=== PATIENT | male | born 1945 | race Caucasian/White ===

== ENCOUNTER 2023-12-30 12:07 | Outpatient (OUT) | payer OTHER, SELFPAY ==
[2023-12-30 12:40] LABS: Basophils Absolute Auto 0.1 10^3/uL (0.0-0.1); Basophils Percent Auto 1.1 % (0.2-2.0); Eosinophils Absolute Auto 0.3 10^3/uL (0.0-0.7); Eosinophils Percent Auto 4.4 % (0.9-7.0); Hematocrit 41.9 % (42.0-54.0); Hemoglobin 13.8 g/dL (14.0-18.0); Immature Granulocytes Abs Auto 0.03 10^3/uL (0.00-0.03); Immature Granulocytes Pct Auto 0.5 % (0.0-0.5); Lymphocytes Absolute Auto 1.3 10^3/uL (1.2-3.8); Mean Corpuscular HGB Conc 32.9 g/dL (29.9-35.2); Mean Corpuscular Hemoglobin 32.2 pg (25.9-34.0); Mean Corpuscular Volume 97.7 fL (80.0-94.0); Mean Platelet Volume 10.8 fL (9.5-13.5); Monocytes Absolute Auto 0.8 10^3/uL (0.3-0.8); Monocytes Percent Auto 12.2 % (1.7-12.0); Neutrophils Percent Auto 61.8 % (43.0-75.0); Platelet Count 150 10^3/uL (150-450); Red Blood Count 4.29 10^6/uL (4.70-6.10); Red Cell Distribution Width 13.1 % (11.0-15.0); White Blood Count 6.4 10^3/uL (4.0-11.0)
[2023-12-30 13:05] LABS: Alanine Aminotransferase 29 U/L (16-63); Albumin Globulin Ratio 1.3; Albumin Level 4.1 g/dL (3.4-5.0); Alkaline Phosphatase 79 U/L (46-116); Anion Gap 12.1; Aspartate Amino Transferase 23 U/L (15-37); BUN Creatinine Ratio 18.6; Bilirubin Total 0.7 mg/dL (0.2-1.0); Calcium 9.8 mg/dL (8.5-10.1); Carbon Dioxide 30.2 mmol/L (21.0-32.0); Chloride 106 mmol/L (98-107); Cholesterol 137 mg/dL (<=200); Estimated GFR (African America >60 (>=60); Estimated GFR (Non-African Ame >60 (>=60); Globulin 3.1 g/dL; Glucose 93 mg/dL (74-106); HDL Cholesterol 46 mg/dL (40-60); LDL Cholesterol Calculated 63.8 mg/dL; Potassium 4.3 mmol/L (3.5-5.1); Sodium 144 mmol/L (136-145); Total Protein 7.2 g/dL (6.4-8.2); Triglycerides 136 mg/dL (<=150); VLDL CHOLESTEROL 27.2 mg/dL
[2023-12-30 13:52] LABS: Prostate Specific Antigen Scrn 0.55 ng/mL (<=4.00)
== END 2023-12-30 12:08 | disposition home or self-care (01) ==
LOC: LAB 12:09
PROVIDERS: PCP Internal Medicine; Visit Provider Internal Medicine
DX: R00.1 Bradycardia, unspecified (principal); R53.83 Other fatigue; E78.00 Pure hypercholesterolemia, unspecified; I25.10 Atherosclerotic heart disease of native coronary artery without angina pectoris; I10 Essential (primary) hypertension; Z12.5 Encounter for screening for malignant neoplasm of prostate
CPT/HCPCS: 36415; 80053; 80061; 84443; 85025; G0103

== ENCOUNTER 2024-03-16 14:52 | Emergency (ER) | payer OTHER, SELFPAY ==
[2024-03-16] VITALS (45 sets, daily range): BP systolic 134–173; BP diastolic 53–108; PULSE 39–83; TEMP 36.7; O2SAT 93–99; BMI 22.3
--- NOTE | 2024-03-16 15:06 | XR_ITS ---
The [address] [address] Patient Name: BHAVANA VIERA MRN: [id number] date: 1945 Sex: M Assigned Patient Location: ER Current Patient Location: ER Accession/Order Number: [id number] Exam Date: 03/16/2024 15:20 Report Date: 03/16/2024 15:37 At the request of: DANIELLA WILSON Procedure: XR chest 1V EXAMINATION: XR chest 1V HISTORY: Bradycardia COMPARISON: No relevant comparison available. TECHNIQUE: AP portable FINDINGS: LUNGS: No significant pulmonary parenchymal abnormalities. VASCULATURE: No increased pulmonary vasculature. PLEURA: No pneumothorax, effusion, or pleural thickening. CARDIAC: No cardiomegaly or cardiac silhouette abnormality. MEDIASTINUM: No visible mass or adenopathy. Median sternotomy wires BONES: No fracture or visible bone lesion. OTHER: Negative. XR/XR chest 1V IMPRESSION: No acute cardiopulmonary process Electronically authenticated by: VIRGILIO MATOS Date: 03/16/2024 15:37
--- NOTE | 2024-03-16 15:06 | ECG_ITS ---
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
--- NOTE | 2024-03-16 15:10 | ED.GENADUL1 ---
HPI HPI - General Adult General Chief complaint: Chest Pain Stated complaint: ABNORMAL CARDIAC VALUE Time Seen by Provider: 03/16/24 14:58 Source: patient Mode of arrival: walk-in Limitations: no limitations History of Present Illness HPI narrative: Patient is an 78-year-old male with a history of cardiac valve replacement who presents to the emergency department with Holter monitor in place because he was alerted to abnormal cardiac rhythm in the last day. He states he has a Holter monitor in place for bradycardia as his heart rate has been dipping into the 30s. He is totally asymptomatic with the bradycardia. He takes an aspirin daily but no other blood thinners. He has had no syncope, dizziness. 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 There is talk of him receiving a pacemaker possibly. Related Data Home Medications ?Medication ?Instructions ?Recorded ?Confirmed alprazolam 0.25 mg tablet mg 03/16/24 aspirin 81 mg capsule 81 mg PO DAILY 03/16/24 03/16/24 carvedilol 3.125 mg tablet mg 03/16/24 furosemide 20 mg tablet mg 03/16/24 lisinopril 40 mg tablet mg 03/16/24 nifedipine 30 mg tablet,extended mg PO 03/16/24 release 24 hr pravastatin 40 mg tablet mg 03/16/24 Allergies Allergy/AdvReac Type Severity Reaction Status Date / Time No Known Drug Allergies Allergy Verified 03/16/24 14:59 Opioid HPI Opioid Management Most Recent Opioid Data: Last Pain Scale 0 03/16/24 15:22 Review of Systems ROS Constitutional Denies: fever or chills Ears, nose, mouth, and throat Denies: throat pain or nasal congestion Cardiovascular Denies: chest pain Respiratory Denies: shortness of breath Gastrointestinal Denies: nausea or vomiting Musculoskeletal Denies: back pain or neck pain Integumentary/Breast Denies: rash Neurological Denies: headache Hematologic/Lymphatic Denies: easy bruising or easy bleeding Exam Narrative Exam Narrative: Gen.: Awake, alert, in no distress Head: Normocephalic, atraumatic ENT: Moist mucous membranes Respiratory: No respiratory distress, lungs clear bilaterally Cardio: Regular rate and rhythm Gastrointestinal: Abdomen is soft, nondistended and nontender to palpation Extremities: Moves extremities equally, no pedal edema Psych: Normal mood and affect Neuro: No focal neuro deficit Skin: Warm, dry, intact Constitutional Vital Signs, click to edit/add: Last Vital Signs Temp 98.0 F 03/16/24 14:59 Pulse 70 03/16/24 14:59 Resp 14 03/16/24 14:59 BP 173/64 H 03/16/24 14:59 Pulse Ox 96 03/16/24 14:59 O2 Del Method Room Air 03/16/24 14:59 Course Vital Signs Vital signs: Vital Signs Temperature 98.0 F 03/16/24 14:59 Pulse Rate 70 03/16/24 14:59 Respiratory Rate 14 03/16/24 14:59 Blood Pressure 173/64 H 03/16/24 14:59 Pulse Oximetry 96 03/16/24 14:59 Oxygen Delivery Method Room Air 03/16/24 14:59 Temperature 98.0 F 03/16/24 14:59 Pulse Rate 70 03/16/24 14:59 Respiratory Rate 14 03/16/24 14:59 Blood Pressure 173/64 H 03/16/24 14:59 Pulse Oximetry 96 03/16/24 14:59 Oxygen Delivery Method Room Air 03/16/24 14:59 Medical Decision Making MDM Narrative Medical decision making narrative: Patient is asymptomatic in the emergency department. Heart rate is in the 40s. Blood pressure is stable. Lab studies are unremarkable including cardiac enzymes. Discussed the case with Dr. Lamb for cardiology and he states he will take care of her transfer to [facility]. Patient made aware and is in agreement with treatment plan. SUPERVISED APC VISIT, PHYSICIAN ATTESTATION: Based on the medical record the care appears appropriate. ? Critical care time 35 minutes. Medical Records Medical records reviewed: Yes I reviewed the patient's medical records Lab Data Lab results reviewed: Yes I reviewed the patient's lab results Labs: Lab Results 03/16/24 Range/Units 15:06 WBC 7.9 (4.0-11.0) 10^3/uL RBC 4.12 L (4.70-6.10) 10^6/uL Hgb 13.5 L (14.0-18.0) g/dL Hct 39.7 L (42.0-54.0) % MCV 96.4 H (80.0-94.0) fL MCH 32.8 (25.9-34.0) pg MCHC 34.0 (29.9-35.2) g/dL RDW 12.4 (11.0-15.0) % Plt Count 163 (150-450) 10^3/uL MPV 11.0 (9.5-13.5) fL Neut % (Auto) 67.8 (43.0-75.0) % Lymph % (Auto) 20.8 (20.5-60.0) % [place] % (Auto) 8.0 (1.7-12.0) % Eos % (Auto) 2.2 (0.9-7.0) % Baso % (Auto) 0.8 (0.2-2.0) % Neut # (Auto) 5.3 (1.4-6.5) 10^3/uL Lymph # (Auto) 1.6 (1.2-3.8) 10^3/uL [place] # (Auto) 0.6 (0.3-0.8) 10^3/uL Eos # (Auto) 0.2 (0.0-0.7) 10^3/uL Baso # (Auto) 0.1 (0.0-0.1) 10^3/uL Abs Immat Gran (auto) 0.03 (0.00-0.03) 10^3/uL Imm/Tot Granulo (auto) 0.4 (0.0-0.5) % PT 10.5 (9.0-11.6) sec INR 0.99 Sodium 142 (136-145) mmol/L Potassium 3.9 (3.5-5.1) mmol/L Chloride 106 (98-107) mmol/L Carbon Dioxide 27.0 (21.0-32.0) mmol/L Anion Gap 12.9 BUN 22.0 H (7.0-18.0) mg/dL Creatinine 1.19 (0.70-1.30) mg/dL Est GFR ( Amer) >60 (>=60) Est GFR (Non-Af Amer) 59 L (>=60) BUN/Creatinine Ratio 18.5 Glucose 140 H (74-106) mg/dL Calcium 9.1 (8.5-10.1) mg/dL Total Bilirubin 0.6 (0.2-1.0) mg/dL AST 20 (15-37) U/L ALT 21 (16-63) U/L Alkaline Phosphatase 76 (46-116) U/L Troponin I High Sens 12.2 (4.0-76.1) pg/mL NT-Pro-B Natriuret Pep 346.0 (<=1800.0) pg/mL Total Protein 6.9 (6.4-8.2) g/dL Albumin 4.0 (3.4-5.0) g/dL Globulin 2.9 g/dL Albumin/Globulin Ratio 1.4 Imaging Data Chest x-ray: Attestation: I have reviewed the pertinent imaging results. Radiologist's impression: ITS Impressions Chest X-Ray 03/16/24 15:06 IMPRESSION: No acute cardiopulmonary process Electronically authenticated by: VIRGILIO MATOS Date: 03/16/2024 15:37 ECG Data Attestation: I personally reviewed and interpreted this ECG as follows: (Normal sinus rhythm at a rate of 68, incomplete right bundle branch block, no acute ST elevation or ectopy. EKG reviewed by attending physician) Critical Care Time Critical Care Time Critical Care Time: Yes Total Critical Care Time: 35 Attestation: 35 minutes of critical care time for cardiac dysrhythmia and transfer to tertiary care. Discharge Plan Discharge Chief Complaint: Chest Pain Clinical Impression: Bradycardia Patient Disposition: [facility] Time of Disposition Decision: 16:07 Discharge Location: [facility] Med Condition: Good Mode of Transportation: EMS Prescriptions / Home Meds: No Action nifedipine 30 mg tablet extended release 24hr PO pravastatin 40 mg tablet alprazolam 0.25 mg tablet furosemide 20 mg tablet lisinopril 40 mg tablet aspirin 81 mg capsule 81 mg PO DAILY carvedilol 3.125 mg tablet Print Language: Ukrainian Referrals: Grzegorz Bui DO [Primary Care Provider] - 1 week
[2024-03-16 15:15] LABS: Basophils Absolute Auto 0.1 10^3/uL (0.0-0.1); Basophils Percent Auto 0.8 % (0.2-2.0); Eosinophils Absolute Auto 0.2 10^3/uL (0.0-0.7); Eosinophils Percent Auto 2.2 % (0.9-7.0); Hematocrit 39.7 % (42.0-54.0); Hemoglobin 13.5 g/dL (14.0-18.0); Immature Granulocytes Abs Auto 0.03 10^3/uL (0.00-0.03); Immature Granulocytes Pct Auto 0.4 % (0.0-0.5); Lymphocytes Absolute Auto 1.6 10^3/uL (1.2-3.8); Lymphocytes Percent Auto 20.8 % (20.5-60.0); Mean Corpuscular Hemoglobin 32.8 pg (25.9-34.0); Mean Corpuscular Volume 96.4 fL (80.0-94.0); Monocytes Absolute Auto 0.6 10^3/uL (0.3-0.8); Neutrophils Absolute Auto 5.3 10^3/uL (1.4-6.5); Neutrophils Percent Auto 67.8 % (43.0-75.0); Platelet Count 163 10^3/uL (150-450); Red Blood Count 4.12 10^6/uL (4.70-6.10); Red Cell Distribution Width 12.4 % (11.0-15.0); White Blood Count 7.9 10^3/uL (4.0-11.0)
[2024-03-16 15:27] LABS: INR 0.99; Prothrombin Time 10.5 sec (9.0-11.6)
[2024-03-16 15:40] LABS: Alanine Aminotransferase 21 U/L (16-63); Albumin Globulin Ratio 1.4; Alkaline Phosphatase 76 U/L (46-116); Anion Gap 12.9; Aspartate Amino Transferase 20 U/L (15-37); BUN Creatinine Ratio 18.5; Bilirubin Total 0.6 mg/dL (0.2-1.0); Calcium 9.1 mg/dL (8.5-10.1); Chloride 106 mmol/L (98-107); Estimated GFR (African America >60 (>=60); Estimated GFR (Non-African Ame 59 (>=60); Globulin 2.9 g/dL; Glucose 140 mg/dL (74-106); Potassium 3.9 mmol/L (3.5-5.1); Sodium 142 mmol/L (136-145); Total Protein 6.9 g/dL (6.4-8.2); Troponin I High Sensitivity 12.2 pg/mL (4.0-76.1)
== END 2024-03-16 21:40 | disposition short-term general hospital (02) ==
PROVIDERS: Physician Assistant; Emergency Provider Emergency Medicine; PCP Internal Medicine
DX: R00.1 Bradycardia, unspecified (principal); Z79.82 Long term (current) use of aspirin; Z95.2 Presence of prosthetic heart valve
CPT/HCPCS: 36415; 71045; 80053; 83880; 84484; 85025; 85610; 93005; 99291

== ENCOUNTER 2024-04-26 08:25 | Outpatient (OUT) | payer OTHER, SELFPAY ==
--- OUTSIDE RECORDS SUMMARY | 2024-04-26 08:31 | XMS_ITS | CCD ---
Author Organization [facility] Care Team Providers Care Health Lead Name Role Phone Grzegorz Bui Unavailable HAO, DR ZUNIGA Consulting Unavailable BALL, DR ZUNIGA Attending Unavailable BALL, DR ZUNIGA Admitting Unavailable BALL, DR ZUNIGA Primary Care Unavailable BALL, DR ZUNIGA Attending Unavailable BALL, DR ZUNIGA Admitting Unavailable BALL, DR ZUNIGA Primary Care Unavailable BALL, DR ZUNIGA Consulting Unavailable ELTAHAWY, DR ESPINAL Consulting Unavailable BALL, DR ZUNIGA Primary Care Unavailable ELTAHAWY, DR ESPINAL Attending Unavailable ELTAHAWY, DR ESPINAL Admitting Unavailable GARY ., JAMA Consulting Unavailable GARY ., JAMA Attending Unavailable GARY ., JAMA Admitting Unavailable BALL, DR ZUNIGA Primary Care Unavailable BALL, DR ZUNIGA Attending Unavailable BALL, DR ZUNIGA Admitting Unavailable BALL, DR ZUNIGA Primary Care Unavailable BALL, DR ZUNIGA Consulting Unavailable BALL, DR ZUNIGA Attending Unavailable BALL, DR ZUNIGA Admitting Unavailable BALL, DR ZUNIGA Primary Care Unavailable BALL, DR ZUNIGA Consulting Unavailable DOWNS, TRICIA Referring Unavailable JONA, INDIO Attending Unavailable JONA, INIDO Attending Unavailable HORANI, DON Admitting Unavailable HORANI, DON Attending Unavailable DIAB, ROLANDO Referring Unavailable HORANI, DON Referring Unavailable PIRKL, OMID Referring Unavailable DOWNS, TRICIA Referring Unavailable Allergies Allergy Classification Reported Allergen(s) Allergy Type Date of Onset Reaction(s) Facility (1 source) Adhesive agent Drug allergy (disorder) 4 [facility] Repository (1 source) patient allergy list reviewed by nurse or physicia Propensity to adverse reactions 7 Comment:Done Biopharmacopae Other Medications Current Medications Medication Drug Class(es) Dates Sig (Normalized) Sig (Original) ALPRAZolam 0.25 mg oral tablet (10 sources) Benzodiazepine Start: 12-28-2023 take 0.25 mg by mouth every eight hours Alprazolam Active 0.25 MG PO Every 8 hours December 28, 2023 12:00am Start: 04-04-2023 take 1 tablet by hellen th every eight hours as needed for anxiety ALPRAZolam 0.25 MG 1 tablet Orally every 8 hours as needed for anxiety Mar, Active take 1 tablet by hellen th every twelve hours ALPRAZolam 0.25 MG 1 tablet Orally Twice a day Active aspirin 81 mg delayed release oral tablet (10 sources) Platelet Aggregation Inhibitor, Nonsteroidal Anti-inflammatory Drug Start: 12-28-2023 Aspirin (Adult Lo w Dose Aspirin) 81 mg tablet,delayed release (DR/EC) Active 81 MG PO Daily December 28, 2023 12:00am take 1 tablet by hellen th every twenty-four hours Aspirin Adult Low Dose 81 MG 1 tablet Orally Once a day Active atorvastatin 40 mg oral tablet (1 source) HMG-CoA Reductase Inhibitor Start: 03-21-2024 take 40 mg by mouth once daily Atorvastatin Active 40 MG PO Daily March 21, 2024 12:00am clopidogrel 75 mg oral tablet (1 source) P2Y12 Platelet Inhibitor Start: 03-21-2024 take 1 tablet by mouth once daily Clopidogrel (Plavix) 75 mg tablet Active 75 MG PO Daily March 21, 2024 12:00am furosemide 20 mg oral tablet (2 sources) Loop Diuretic Start: 12-28-2023 take 20 mg by mouth once daily Furosemide Active 20 MG PO Daily December 28, 2023 12:00am lisinopril 40 mg oral tablet (1 source) Angiotensin Converting Enzyme Inhibitor Start: 03-30-2024 take 40 mg by mouth once daily Lisinopril Active 40 MG PO Daily March 30, 2024 12:00am mupirocin 0.02 mg/mg topical ointment (5 sources) RNA Synthetase Inhibitor Antibacterial Mupirocin 2 % 1 application Externally Twice a day Active NIFEdipine 30 mg osmotic 24 hr extended release oral tablet (2 sources) Dihydropyridine Calcium Channel Rosibel Start: 12-28-2023 take 30 mg by mouth once daily Nifedipine Active 30 MG PO Daily December 28, 2023 12:00am nitroglycerin 0.4 mg sublingual tablet (10 sources) Nitrate Vasodilator Start: 12-28-2023 Nitroglycerin Active 0.4 MG SUBLINGUAL every 5 to 15 minutes December 28, 2023 12:00am Nitroglycerin 0. 4 MG as directed Sublingual Active Completed/Discontinued Medications Medication Drug Class(es) Dates Sig (Normalized) Sig (Original) carvedilol 3.125 mg oral tablet (11 sources) alpha-Adrenergic Rosibel, beta-Adrenergic Rosibel Start: 02-27-2024 End: 03-21-2024 take 3.125 mg by mouth twice daily Carvedilol Discontinued 3.125 MG PO Twice daily 60 30 February 27, 2024 5:09pm March 21, 2024 3:59pm Start: 12-28-2023 End: 02-27-2024 take 6.25 mg by mouth twice daily Carvedilol Discontinued 6.25 MG PO Twice daily December 28, 2023 12:00am February 27, 2024 5:09pm take 1 tablet by hellen th every twelve hours Carvedilol 6.25 MG 1 tablet with food Orally Twice a day Active pravastatin sodium 40 mg oral tablet (2 sources) HMG-CoA Reductase Inhibitor Start: 12-28-2023 End: 03-21-2024 take 40 mg by mouth once daily Pravastatin Discontinued 40 MG PO Daily December 28, 2023 12:00am March 21, 2024 4:00pm Problems Active Problems Problem Classification Problem Date Documented Date Episodic/Chronic Allergic reactions (1 source) Inflammatory dermatosis; Translations: [Dermatitis, unspecified] Episodic Anxiety disorders (17 sources) Generalized anxiety disorder; Translations: [Generalized anxiety disorder] Chronic Cardiac dysrhythmias (14 sources) Nonsustained ventricular tachycardia ; Translations: [NSVT (nonsustained ventricular tachycardia)] Onset: 03-16-2024 12-28-2023 Chronic Cardiac dysrhythmias (10 sources) Bradycardia, unspecified; Translations: [Bradycardia] Onset: 03-27-2024 Episodic Coagulation and hemorrhagic disorders (1 source) Thrombocytopenic disorder; Translations: [Thrombocytopenia, unspecified] Onset: 03-06-2017 Chronic Complication of device; implant or graft (2 sources) Atherosclerosis of coronary artery bypass graft(s) without angina pectoris; Translations: [Atherosclerosis of coronary artery bypass graft(s) without angina pectoris] Onset: 03-27-2024 Chronic Complications of surgical procedures or medical care (5 sources) Postprocedural hemorrhage of skin and subcutaneous tissue following a dermatologic procedure; Translations: [Infection following a procedure, other surgical site, initial encounter] Onset: 05-28-2022 Episodic Congestive heart failure; nonhypertensive (2 sources) Chronic diastolic (congestive) heart failure; Translations: [Chronic diastolic (congestive) heart failure] Onset: 03-17-2024 Chronic Coronary atherosclerosis and other heart disease (20 sources) Coronary arteriosclerosis; Translations: [Atherosclerotic heart disease of [place] coronary artery without angina pectoris] Onset: 10-17-2013 Chronic Deficiency and other anemia (2 sources) Anemia; Translations: [Anemia, unspecified] 12-30-2023 Episodic Disorders of lipid metabolism (20 sources) Hypercholesterolemia; Translations: [Pure hypercholesterolemia, unspecified] Onset: 10-17-2013 Chronic Esophageal disorders (2 sources) Esophageal reflux finding; Translations: [Esophageal reflux] Onset: 10-17-2013 Chronic Essential hypertension (20 sources) Essential hypertension; Translations: [Essential (primary) hypertension] Onset: 04-20-2022 Chronic Heart valve disorders (16 sources) Non-rheumatic mitral regurgitation ; Translations: [Nonrheumatic mitral (valve) insufficiency] Onset: 03-17-2024 Chronic Hyperplasia of prostate (3 sources) Lower urinary tract symptoms due to benign prostatic hypertrophy; Translations: [Benign prostatic hyperplasia with lower urinary tract symptoms] Onset: 10-17-2013 Chronic Hypertension with complications and secondary hypertension (2 sources) Hypertensive heart disease with heart failure; Translations: [Hypertensive heart disease with heart failure] Onset: 04-06-2024 Chronic Immunizations and screening for infectious disease (1 source) Vaccination given; Translations: [Encounter for immunization] Episodic Osteoarthritis (1 source) Osteoarthritis; Translations: [Polyosteoarthritis, unspecified] Onset: 11-21-2015 Chronic Other aftercare (4 sources) Other shelter (current) drug therapy; Translations: [OTH FOOTWEAR SALES COORDINATOR CURRENT DRUG THERAPY] Onset: 05-31-2022 Episodic Other aftercare (1 source) Long-term current use of drug therapy; Translations: [Other keysmith (current) drug therapy] Episodic Other injuries and conditions due to external causes (1 source) History of fall; Translations: [History of falling] Episodic Other non-epithelial cancer of skin (2 sources) Personal history of other malignant neoplasm of skin; Translations: [Basal cell carcinoma of scalp] Onset: 09-26-2022 Episodic Other screening for suspected conditions (not mental disorders or infectious disease) (9 sources) Encounter for screening for malignant neoplasm of prostate; Translations: [Abnormal result of other cardiovascular function study] Onset: 12-23-2021 Episodic Elinor-; endo-; and myocarditis; cardiomyopathy (except that caused by tuberculosis or sexually transmitted disease) (2 sources) Cardiomyopathy in diseases classified elsewhere; Translations: [Cardiomyopathy in diseases classified elsewhere] Onset: 04-06-2024 Chronic Residual codes; unclassified (1 source) Requires influenza virus vaccination; Translations: [Need for prophylactic vaccination and inoculation, Influenza] Episodic Spondylosis; intervertebral disc disorders; other back problems (16 sources) Lumbar spondylosis; Translations: [Spondylosis without myelopathy or radiculopathy, lumbar region] Chronic Unclassified (2 sources) Other ventricular tachycardia; Translations: [Other ventricular tachycardia] Onset: 03-17-2024 Unclassified (1 source) Long-term current use of drug therapy; Translations: [Long-term (current) use of other medications] Onset: 11-23-2016 Past or Other Problems Problem Classification Problem Date Documented Date Episodic/Chronic Deficiency and other anemia (4 sources) Anemia, unspecified; Translations: [ANEMIA UNSPECIFIED] Onset: 2 Episodic Esophageal disorders (8 sources) Esophageal disorders; Translations: [Gastroesophageal reflux disease with esophagitis without hemorrhage] Nonspecific chest pain (1 source) Chest pain; Translations: [Chest pain, unspecified] Onset: 6 Episodic Other aftercare (1 source) snf (current) use of aspirin; Translations: [FOOTWEAR SALES COORDINATOR CURRENT USE OF ASPIRIN] Onset: 2 Episodic Other upper respiratory infections (1 source) Acute maxillary sinusitis; Translations: [Acute recurrent maxillary sinusitis] Onset: 9 Episodic Screening and history of mental health and substance abuse codes (1 source) History of tobacco use; Translations: [Personal history of tobacco use, presenting hazards to health] Onset: 7 Episodic Sprains and strains (1 source) Sprain, metatarsophalangeal joint; Translations: [Sprain and strain of metatarsophalangeal (joint)] Onset: 4 Episodic Superficial injury; contusion (1 source) Contusion of hand; Translations: [Contusion of hand(s)] Onset: 4 Episodic Unclassified (4 sources) NSVT (nonsustained ventricular tachycardia) I47.29 Unclassified (1 source) Other ventricular tachycardia; Translations: [Other ventricular tachycardia] Onset: 4 Viral infection (1 source) Herpes zoster without complication; Translations: [Zoster without complications] Onset: 8 Resolved: 1 Episodic Results Test Name Value Interpretation Reference Range Facility 37on 04-06-2024 37 Increase Nifedipine to 90 mg daily (1 1/2 tablets of your dose that you have now) next bottle will be 90 mg daily. Monitor b/p at home and goal is most of the time to be < 130/80 Normal [facility] Follow-Upon 04-06-2024 Follow-Up [id number] Donaldo Viera 1945 M Date Provider Department Center 04/06/2024 INDIO [facility] Family History Problem Relation Age of Onset Heart disease Father Heart disease Brother Heart disease Father's Brother Family Status - Relation Status Age at Father Brother Father's Brother Level of Service:51581 NC OFFICE/OUTPATIENT ESTABLISHED LOW MDM 20 MIN Normal [facility] 30on 03-21-2024 30 The patient is Moderately Stable - Low risk of patient condition declining or worsening The patient's goals for the shift include discharge The clinical goals for the shift include VSS Over the shift, the patient did make progress toward the following goals. Barriers to progression include n/a. Recommendations to address these barriers include n/a. Plan to discharge today Normal [facility] BASIC METABOLIC PANELon 03-05 Anion gap [Moles/Vol] 13 mmol/L Normal - [facility] Comment on above: Performed By: #### L [id number] ####[facility] (BEAKER)[address] [place] [address] Calcium [Mass/Vol] 8.8 mg/dL Normal 8.6-10.3 [facility] Comment on above: Performed By: #### L [id number] ####[facility] ([facility])[address] [place] [address] Chloride [Moles/Vol] 110 mmol/L High 98-107 [facility] Comment on above: Performed By: #### L [id number] ####[facility] ([facility])[address] [place] [address] CO2 [Moles/Vol] 24 mmol/L Normal 21-31 [facility] Comment on above: Performed By: #### L [id number] ####[facility] ([facility])[address] [place] [address] Creatinine [Mass/Vol] 0.94 mg/dL Normal 0.70-1.30 [facility] Comment on above: Performed By: #### L [id number] ####[facility] ([facility])[address] [place] [address] GLOMERULAR FILTRATION RATE ML/MIN/1.73 SQ M.PREDICTED 81.9 mL/min/1.73m*2 Normal >60.0 [facility] Comment on above: Result Comment: The [facility]???s estimated glomerular filtration rate (eGFR) will no longer include consideration of race in its calculation. The National Kidney Foundation???s eGFR Task Force developed new recommendations for the estimation of the glomerular filtration rate in the [place] They recommend immediate implementation of the new equation refit without the race variable in all laboratories because the calculation does not include race. In addition to not including race in the calculation and reporting, it included diversity in its development, and has acceptable performance characteristics and potential consequences that do not disproportionately affect any one group of individuals. Performed By: #### L [id number] ####[facility] ([facility] [place] [address] Glucose [Mass/Vol] 83 mg/dL Normal 70-100 [facility] Comment on above: Performed By: #### L [id number] ####[facility] ([facility] [place] [address] Potassium [Moles/Vol] 3.7 mmol/L Normal 3.5-5.1 [facility] Comment on above: Performed By: #### L [id number] ####[facility] (BEAKER)[address] [place] [address] Sodium [Moles/Vol] 143 mmol/L Normal 136-145 [facility] Comment on above: Performed By: #### L [id number] ####[facility] ([facility])[address] [place] [address] Urea nitrogen [Mass/Vol] 27 mg/dL High 7-25 [facility] Comment on above: Performed By: #### L [id number] ####[facility] ([facility] [place] [address] UREA NITROGEN/CREATININE (MASS RATIO) IN SER/PLAS 28.7 Normal [facility] Comment on above: Performed By: #### L [id number] ####[facility] ([facility])[address] [place] [address] CBCon 03-21-2024 Erythrocyte distribution width (RBC) [Ratio] 12.7 % Normal 11.5-15.0 [facility] Comment on above: Performed By: #### L [id number] ####[facility] ([facility] [place] [address] ERYTHROCYTE MEAN CORPUSCULAR HEMOGLOBIN CONCENTRATION (G/DL) BY AUTOMATED 33.0 g/dL Normal 32.0-35.0 [facility] Comment on above: Performed By: #### L [id number] ####[facility] ([facility] [address] Hematocrit (Bld) [Volume fraction] 35.8 % Low 39.0-55.0 [facility] Comment on above: Performed By: #### L [id number] ####[facility] ([facility])[address] [address] Hemoglobin (Bld) [Mass/Vol] 11.8 g/dL Low 13.0-17.0 [facility] Comment on above: Performed By: #### L [id number] ####[facility] ([facility]ER)[address] [place] [address] MCH (RBC) [Entitic mass] 31.9 pg Normal 27.0-33.0 [facility] Comment on above: Performed By: #### L [id number] ####[facility] ([facility])[address] [place] [address] MCV (RBC) [Entitic vol] 96.8 fL Normal 82.0-98.0 [facility] Comment on above: Performed By: #### L [id number] ####[facility] ([facility])[address] [place] [address] PLATELETS (10*3/UL) IN BLOOD AUTOMATED COUNT 136 10*3/uL Low 150-400 [facility] Comment on above: Performed By: #### L [id number] ####[facility] ([facility])[address] [place] [address] RBC (Bld) [#/Vol] 3.70 10*6/uL Low 4.20-5.70 [facility] Comment on above: Performed By: #### L [id number] ####[facility] ([facility])[address] [place] [address] WBC (Bld) [#/Vol] 5.54 10*3/uL Normal 4.00-10.60 [facility] Comment on above: Performed By: #### L [id number] ####[facility] ([facility])[address] [place] [address] LIPID PANELon 03-21-2024 CHOL/HDL 2.6 mg/dL Normal [facility] Comment on above: Performed By: #### L [id number] #### [facility] ([facility] [address] [place] [address] Cholesterol [Mass/Vol] 108 mg/dL Low 120-200 [facility] Comment on above: Performed By: #### L [id number] #### [facility] ([facility]) [address] [place] [address] Magnesium [Mass/Vol] 95 mg/dL Normal 40-149 [facility] Comment on above: Result Comment: TRIG LYCERIDE REFERENCE RANGE: 20 YEARS AND OLDER CARDIOVASCULAR RISK LESS THAN 150 mg/dL LOW RISK 150 TO 199 mg/dL BORDERLINE RISK 200 mg/dL AND GREATER HIGH RISK Performed By: #### L [id number] #### [facility] ([facility]) [address] [place] [address] Magnesium [Mass/Vol] 48 mg/dL Normal 0-160 [facility] Comment on above: Performed By: #### L [id number] #### [facility] ([facility]) [address] [place] [address] Magnesium [Mass/Vol] 41 mg/dL Normal 23-92 [facility] Comment on above: Performed By: #### L [id number] #### [facility] ([facility]) [address] [place] [address] NON HDL CHOL. (LDL+VLDL) 67 Normal [facility] Comment on above: Performed By: #### L [id number] #### [facility] ([facility]) [address] [place] [address] TOTAL VLDL-C 19 mg/dL Normal 0-40 [facility] Comment on above: Performed By: #### L [id number] #### [facility] ([facility]) [address] [place] [address] NURSNOTEon 03-21-2024 NURSNOTE AVBenjamin reviewed with patient, pt verbalized understanding Normal [facility] 30on 03-20-2024 30 The patient is Moderately Stable - Low risk of patient condition declining or worsening The patient's goals for the shift include comfort The clinical goals for the shift include VSS Problem: Pain - Adult Goal: Verbalizes/displays adequate comfort level or baseline comfort level Outcome: Progressing Flowsheets (Taken 03/19/2024 1115 by Stacy Padron RN) Verbalizes/displays adequate comfort level or baseline comfort level: Encourage patient to monitor pain and request assistance Administer analgesics based on type and severity of pain and evaluate response Assess pain using appropriate pain scale Implement non-pharmacological measures as appropriate and evaluate response Consider cultural and social influences on pain and pain management Notify Licensed Independent Practitioner if interventions unsuccessful or patient reports new pain Problem: Safety - Adult Goal: Free from fall injury Outcome: Progressing Flowsheets (Taken 03/19/2024734 by Stacy Padron RN) Free from fall injury: Assess patient frequently for physical needs Identify cognitive and physical deficits and behaviors that affect risk of falls Dulzura fall precautions as indicated by assessment Instruct patient to call for assistance with activity based on assessment Educate patient/family on patient safety, including physical limitations Modify environment to reduce risk of injury Consider OT/PT consult to assist with strengthening/mobility Problem: Discharge Planning Goal: Discharge to home or other facility with appropriate resources Outcome: Progressing Flowsheets (Taken 03/19/2024734 by Stacy Padron RN) Discharge to home or other facility with appropriate resources: Identify barriers to discharge with patient and caregiver Arrange for needed discharge resources and transportation as appropriate Identify discharge learning needs (meds, wound care, etc) Arrange for interpreters to assist at discharge as needed Refer to discharge planning if patient needs post-hospital services based on physician order or complex needs related to functional status, cognitive ability or social support system Problem: Chronic Conditions and Co-morbidities Goal: Patient's chronic conditions and co-morbidity symptoms are monitored and maintained or improved Outcome: Progressing Flowsheets (Taken 03/19/2024734 by Stacy Padron RN) Care Plan - Patient's Chronic Conditions and Co-Morbidity Symptoms are Monitored and Maintained or Improved: Monitor and assess patient's chronic conditions and comorbid symptoms for stability, deterioration, or improvement Collaborate with multidisciplinary team to address chronic and comorbid conditions and prevent exacerbation or deterioration Update acute care plan with appropriate goals if chronic or comorbid symptoms are exacerbated and prevent overall improvement and discharge Normal [facility] 30 The patient is Moderately Stable - Low risk of patient condition declining or worsening The patient's goals for the shift include complete testing The clinical goals for the shift include vss Over the shift, the patient did make progress toward the following goals. Barriers to progression include n/a. Recommendations to address these barriers include n/a. Cath completed Problem: Pain - Adult Goal: Verbalizes/displays adequate comfort level or baseline comfort level Outcome: Progressing Problem: Safety - Adult Goal: Free from fall injury Outcome: Progressing Problem: Discharge Planning Goal: Discharge to home or other facility with appropriate resources Outcome: Progressing Problem: Chronic Conditions and Co-morbidities Goal: Patient's chronic conditions and co-morbidity symptoms are monitored and maintained or improved Outcome: Progressing Normal [facility] 30 Daily Case Managemen t Update Multidisciplinary rounds have been completed. Barriers to Discharge: Pending clinical course and improvement in clinical condition. Patient planned to undergo cardiac catheterization today; pending results and Cardiology recommendations. Discharge plan is home when medically ready. Diet: Dietary Orders (From admission, onward) Start Ordered 03/20/24 0001 Diet NPO Diet effective midnight Comments: Sips with medications Question: Reason for NPO: Answer: Operation/Procedure 03/19/24 1610 Physician Expected Discharge Date: 03/21/2024 Discharge Delays: PT Six Click Score: 24 OT Six Click Score: PT Recommendations: OT Recommendations: New Consults: Consult Orders (From admission, onward) Start Ordered 03/19/24 1022 Inpatient consult to Electrophysiology Once Specialty: Electrophysiology Provider: (Not yet assigned) Question Answer Comment Consulting Group ELECTROPHYSIOLOGY TEAM Reason for Consult? bradycardia Level of Consultation Consultation and Management 03/19/24 1021 Normal [facility] BASIC METABOLIC PANELon 03-05 Anion gap [Moles/Vol] 15 mmol/L Normal 7-20 [facility] Comment on above: Performed By: #### L [id number] #### [facility] ([facility]AKER) [address] [place] [address] Calcium [Mass/Vol] 9.0 mg/dL Normal 8.6-10.3 [facility] Comment on above: Performed By: #### L [id number] #### [facility] ([facility]) [address] [place] [address] Chloride [Moles/Vol] 109 mmol/L High 98-107 [facility] Comment on above: Performed By: #### L [id number] #### [facility] ([facility]AKER) [address] [place] [address] CO2 [Moles/Vol] 23 mmol/L Normal 21-31 [facility] Comment on above: Performed By: #### L [id number] #### [facility] ([facility]AKER) [address] [place] [address] Creatinine [Mass/Vol] 1.08 mg/dL Normal 0.70-1.30 [facility] Comment on above: Performed By: #### L [id number] #### [facility] ([facility]) [address] [place] [address] GLOMERULAR FILTRATION RATE ML/MIN/1.73 SQ M.PREDICTED 69.4 mL/min/1.73m*2 Normal >60.0 [facility] Comment on above: Result Comment: The [facility]???s estimated glomerular filtration rate (eGFR) will no longer include consideration of race in its calculation. The National Kidney Foundation???s eGFR Task Force developed new recommendations for the estimation of the glomerular filtration rate in the [place] They recommend immediate implementation of the new equation refit without the race variable in all laboratories because the calculation does not include race. In addition to not including race in the calculation and reporting, it included diversity in its development, and has acceptable performance characteristics and potential consequences that do not disproportionately affect any one group of individuals. Performed By: #### L [id number] #### [facility] ([facility]) [address] [place] [address] Glucose [Mass/Vol] 86 mg/dL Normal 70-100 [facility] Comment on above: Performed By: #### L [id number] #### [facility] ([facility]) [address] [place] [address] Potassium [Moles/Vol] 3.8 mmol/L Normal 3.5-5.1 [facility] Comment on above: Performed By: #### L [id number] #### [facility] ([facility]) [address] [place] [address] Sodium [Moles/Vol] 143 mmol/L Normal 136-145 [facility] Comment on above: Performed By: #### L [id number] #### [facility] ([facility]) [address] [place] [address] Urea nitrogen [Mass/Vol] 33 mg/dL High 7-25 [facility] Comment on above: Performed By: #### L [id number] #### [facility] ([facility]) [address] [place] [address] UREA NITROGEN/CREATININE (MASS RATIO) IN SER/PLAS 30.6 Normal [facility] Comment on above: Performed By: #### L [id number] #### [facility] ([facility]) [address] [place] [address] CBCon 03-20-2024 Erythrocyte distribution width (RBC) [Ratio] 12.8 % Normal 11.5-15.0 [facility] Comment on above: Performed By: #### L [id number] #### [facility] ([facility]) [address] [place] [address] ERYTHROCYTE MEAN CORPUSCULAR HEMOGLOBIN CONCENTRATION (G/DL) BY AUTOMATED 33.4 g/dL Normal 32.0-35.0 [facility] Comment on above: Performed By: #### L [id number] #### [facility] ([facility]) [address] [place] [address] Hematocrit (Bld) [Volume fraction] 38.3 % Low 39.0-55.0 [facility] Comment on above: Performed By: #### L [id number] #### [facility] ([facility]) [address] [place] [address] Hemoglobin (Bld) [Mass/Vol] 12.8 g/dL Low 13.0-17.0 [facility] Comment on above: Performed By: #### L [id number] #### [facility] ([facility]) [address] [place] [address] IMMATURE PLATELET FRACTION % 3.3 % Normal 0.8-6.3 [facility] Comment on above: Performed By: #### L [id number] #### [facility] ([facility]) [address] [place] [address] MCH (RBC) [Entitic mass] 32.7 pg Normal 27.0-33.0 [facility] Comment on above: Performed By: #### L [id number] #### [facility] ([facility]) [address] [place] [address] MCV (RBC) [Entitic vol] 98.0 fL Normal 82.0-98.0 [facility] Comment on above: Performed By: #### L [id number] #### [facility] ([facility]) [address] [place] [address] PLATELETS (10*3/UL) IN BLOOD AUTOMATED COUNT 135 10*3/uL Low 150-400 [facility] Comment on above: Performed By: #### L [id number] #### [facility] ([facility]) [address] [place] [address] RBC (Bld) [#/Vol] 3.91 10*6/uL Low 4.20-5.70 [facility] Comment on above: Performed By: #### L [id number] #### [facility] ([facility]) [address] [place] [address] WBC (Bld) [#/Vol] 5.40 10*3/uL Normal 4.00-10.60 [facility] Comment on above: Performed By: #### L [id number] #### [facility] ([facility]) [address] [place] [address] HPon 03-20-2024 HP H&P reviewed. The patient was examined and there are no changes to the H&P. MPI with inferolateral ischemia, plan for CAG +/- PCI, discussed with patient and understands risks vs benefits and ok to proceed. Zora Nelson MD [facility] 30on 03-19-2024 30 The patient is Moderately Stable - Low risk of patient condition declining or worsening The patient's goals for the shift include comfort/rest The clinical goals for the shift include VSS Problem: Pain - Adult Goal: Verbalizes/displays adequate comfort level or baseline comfort level Outcome: Progressing Problem: Safety - Adult Goal: Free from fall injury Outcome: Progressing Normal [facility] 30 Daily Case Managemen t Update Multidisciplinary rounds have been completed. Barriers to Discharge: Pending clinical course and improvement in clinical condition. Patient underwent Treadmill Cardiolite Stress today; pending results and Cardiology recommendation. Discharge plan is home when medically ready. Diet: Dietary Orders (From admission, onward) Start Ordered 03/19/24 0001 Diet NPO Diet effective midnight Comments: No exceptions Question: Reason for NPO: Answer: Operation/Procedure 03/18/24 1310 Physician Expected Discharge Date: 03/20/2024 Discharge Delays: PT Six Click Score: 23 OT Six Click Score: PT Recommendations: OT Recommendations: New Consults: Consult Orders (From admission, onward) Start Ordered 03/19/24 1022 Inpatient consult to Electrophysiology Once Specialty: Electrophysiology Provider: (Not yet assigned) Question Answer Comment [employer] ELECTROPHYSIOLOGY TEAM Reason for Consult? bradycardia Level of Consultation Consultation and Management 03/19/24 1021 Normal [facility] 30 The patient is Moderately Stable - Low risk of patient condition declining or worsening The patient's goals for the shift include comfort/sleep The clinical goals for the shift include stable vs/surgery Problem: Pain - Adult Goal: Verbalizes/displays adequate comfort level or baseline comfort level Outcome: Progressing Flowsheets (Taken 03/19/2024 0735) Verbalizes/displays adequate comfort level or baseline comfort level: Encourage patient to monitor pain and request assistance Assess pain using appropriate pain scale Administer analgesics based on type and severity of pain and evaluate response Implement non-pharmacological measures as appropriate and evaluate response Consider cultural and social influences on pain and pain management Notify Licensed Independent Practitioner if interventions unsuccessful or patient reports new pain Problem: Safety - Adult Goal: Free from fall injury Outcome: Progressing Flowsheets (Taken 03/19/2024 0735) Free from fall injury: Assess patient frequently for physical needs Identify cognitive and physical deficits and behaviors that affect risk of falls Dulzura fall precautions as indicated by assessment Instruct patient to call for assistance with activity based on assessment Educate patient/family on patient safety, including physical limitations Modify environment to reduce risk of injury Consider OT/PT consult to assist with strengthening/mobility Problem: Discharge Planning Goal: Discharge to home or other facility with appropriate resources Outcome: Progressing Flowsheets (Taken 03/19/2024 0735) Discharge to home or other facility with appropriate resources: Identify barriers to discharge with patient and caregiver Arrange for needed discharge resources and transportation as appropriate Identify discharge learning needs (meds, wound care, etc) Arrange for interpreters to assist at discharge as needed Refer to discharge planning if patient needs post-hospital services based on physician order or complex needs related to functional status, cognitive ability or social support system Problem: Chronic Conditions and Co-morbidities Goal: Patient's chronic conditions and co-morbidity symptoms are monitored and maintained or improved Outcome: Progressing Flowsheets (Taken 03/19/2024 0735) Care Plan - Patient's Chronic Conditions and Co-Morbidity Symptoms are Monitored and Maintained or Improved: Monitor and assess patient's chronic conditions and comorbid symptoms for stability, deterioration, or improvement Collaborate with multidisciplinary team to address chronic and comorbid conditions and prevent exacerbation or deterioration Update acute care plan with appropriate goals if chronic or comorbid symptoms are exacerbated and prevent overall improvement and discharge Normal [facility] BASIC METABOLIC PANELon 07- Anion gap [Moles/Vol] 10 mmol/L Normal 7-20 [facility] Comment on above: Performed By: #### L [id number] #### [facility] ([facility]) [address] [place] [address] Calcium [Mass/Vol] 9.3 mg/dL Normal 8.6-10.3 [facility] Comment on above: Performed By: #### L [id number] #### [facility] (BEAKER) [address] [place] [address] Chloride [Moles/Vol] 111 mmol/L High 98-107 [facility] Comment on above: Performed By: #### L [id number] #### [facility] (BEAKER) [address] [place] [address] CO2 [Moles/Vol] 24 mmol/L Normal 21-31 [facility] Comment on above: Performed By: #### L [id number] #### [facility] (BEAKER) [address] [place] [address] Creatinine [Mass/Vol] 1.00 mg/dL Normal 0.70-1.30 [facility] Comment on above: Performed By: #### L [id number] #### [facility] ([facility]) [address] [place] [address] GLOMERULAR FILTRATION RATE ML/MIN/1.73 SQ M.PREDICTED 76.1 mL/min/1.73m*2 Normal >60.0 [facility] Comment on above: Result Comment: The [facility]???s estimated glomerular filtration rate (eGFR) will no longer include consideration of race in its calculation. The National Kidney Foundation???s eGFR Task Force developed new recommendations for the estimation of the glomerular filtration rate in the [place] They recommend immediate implementation of the new equation refit without the race variable in all laboratories because the calculation does not include race. In addition to not including race in the calculation and reporting, it included diversity in its development, and has acceptable performance characteristics and potential consequences that do not disproportionately affect any one group of individuals. Performed By: #### L [id number] #### [facility] ([facility]) [address] [place] [address] Glucose [Mass/Vol] 83 mg/dL Normal 70-100 [facility] Comment on above: Performed By: #### L [id number] #### [facility] ([facility]) [address] [place] [address] Potassium [Moles/Vol] 4.0 mmol/L Normal 3.5-5.1 [facility] Comment on above: Performed By: #### L [id number] #### [facility] ([facility]) [address] [place] [address] Sodium [Moles/Vol] 141 mmol/L Normal 136-145 [facility] Comment on above: Performed By: #### L [id number] #### [facility] ([facility]) [address] [place] [address] Urea nitrogen [Mass/Vol] 33 mg/dL High 7-25 [facility] Comment on above: Performed By: #### L [id number] #### [facility] [address] [place] [address] UREA NITROGEN/CREATININE (MASS RATIO) IN SER/PLAS 33.0 Normal [facility] Comment on above: Performed By: #### L [id number] #### [facility] ([facility]) [address] [place] [address] CBCon 03-19-2024 Erythrocyte distribution width (RBC) [Ratio] 12.7 % Normal 11.5-15.0 [facility] Comment on above: Performed By: #### L [id number] #### [facility] [address] [place] [address] ERYTHROCYTE MEAN CORPUSCULAR HEMOGLOBIN CONCENTRATION (G/DL) BY AUTOMATED 33.9 g/dL Normal 32.0-35.0 [facility] Comment on above: Performed By: #### L [id number] #### [facility] [address] [place] [address] Hematocrit (Bld) [Volume fraction] 38.1 % Low 39.0-55.0 [facility] Comment on above: Performed By: #### L [id number] #### [facility] ([facility]) [address] [place] [address] Hemoglobin (Bld) [Mass/Vol] 12.9 g/dL Low 13.0-17.0 [facility] Comment on above: Performed By: #### L [id number] #### [facility] [address] [place] [address] MCH (RBC) [Entitic mass] 31.9 pg Normal 27.0-33.0 [facility] Comment on above: Performed By: #### L [id number] #### [facility] [address] [place] [address] MCV (RBC) [Entitic vol] 94.3 fL Normal 82.0-98.0 [facility] Comment on above: Performed By: #### L [id number] #### [facility] [address] [place] [address] PLATELETS (10*3/UL) IN BLOOD AUTOMATED COUNT 145 10*3/uL Low 150-400 [facility] Comment on above: Performed By: #### L [id number] #### [facility] [address] [place] [address] RBC (Bld) [#/Vol] 4.04 10*6/uL Low 4.20-5.70 [facility] Comment on above: Performed By: #### L [id number] #### [facility] (BEAKER) [address] [place] [address] WBC (Bld) [#/Vol] 6.33 10*3/uL Normal 4.00-10.60 [facility] Comment on above: Performed By: #### L [id number] #### [facility] (BEAKER) [address] [place] [address] 30on 03-18-2024 30 The patient is Moderately Stable - Low risk of patient condition declining or worsening The patient's goals for the shift include comfort/walk The clinical goals for the shift include stable vs Problem: Pain - Adult Goal: Verbalizes/displays adequate comfort level or baseline comfort level Outcome: Progressing Flowsheets (Taken 03/18/2024915) Verbalizes/displays adequate comfort level or baseline comfort level: Administer analgesics based on type and severity of pain and evaluate response Encourage patient to monitor pain and request assistance Assess pain using appropriate pain scale Implement non-pharmacological measures as appropriate and evaluate response Consider cultural and social influences on pain and pain management Notify Licensed Independent Practitioner if interventions unsuccessful or patient reports new pain Problem: Safety - Adult Goal: Free from fall injury Outcome: Progressing Flowsheets (Taken 03/18/2024915) Free from fall injury: Assess patient frequently for physical needs Identify cognitive and physical deficits and behaviors that affect risk of falls Dulzura fall precautions as indicated by assessment Educate patient/family on patient safety, including physical limitations Instruct patient to call for assistance with activity based on assessment Modify environment to reduce risk of injury Consider OT/PT consult to assist with strengthening/mobility Problem: Discharge Planning Goal: Discharge to home or other facility with appropriate resources Outcome: Progressing Flowsheets (Taken 03/18/2024915) Discharge to home or other facility with appropriate resources: Identify barriers to discharge with patient and caregiver Arrange for needed discharge resources and transportation as appropriate Identify discharge learning needs (meds, wound care, etc) Arrange for interpreters to assist at discharge as needed Refer to discharge planning if patient needs post-hospital services based on physician order or complex needs related to functional status, cognitive ability or social support system Problem: Chronic Conditions and Co-morbidities Goal: Patient's chronic conditions and co-morbidity symptoms are monitored and maintained or improved Outcome: Progressing Flowsheets (Taken 03/18/2024 0916) Care Plan - Patient's Chronic Conditions and Co-Morbidity Symptoms are Monitored and Maintained or Improved: Monitor and assess patient's chronic conditions and comorbid symptoms for stability, deterioration, or improvement Collaborate with multidisciplinary team to address chronic and comorbid conditions and prevent exacerbation or deterioration Update acute care plan with appropriate goals if chronic or comorbid symptoms are exacerbated and prevent overall improvement and discharge Normal [facility] BASIC METABOLIC PANELon 07- Anion gap [Moles/Vol] 13 mmol/L Normal - [facility] Comment on above: Performed By: #### L [id number] #### [facility] ([facility]) [address] [place] [address] Calcium [Mass/Vol] 8.6 mg/dL Normal 8.6-10.3 [facility] Comment on above: Performed By: #### L [id number] #### [facility] (BEAKER) [address] [place] [address] Chloride [Moles/Vol] 109 mmol/L High 98-107 [facility] Comment on above: Performed By: #### L [id number] #### [facility] (BEAKER) [address] [place] [address] CO2 [Moles/Vol] 25 mmol/L Normal 21- [facility] Comment on above: Performed By: #### L [id number] #### [facility] (BEAKER) [address] [place] [address] Creatinine [Mass/Vol] 0.99 mg/dL Normal 0.70-1.30 [facility] Comment on above: Performed By: #### L [id number] #### [facility] ([facility]) [address] [place] [address] GLOMERULAR FILTRATION RATE ML/MIN/1.73 SQ M.PREDICTED 77.0 mL/min/1.73m*2 Normal >60.0 [facility] Comment on above: Result Comment: The [facility]???s estimated glomerular filtration rate (eGFR) will no longer include consideration of race in its calculation. The National Kidney Foundation???s eGFR Task Force developed new recommendations for the estimation of the glomerular filtration rate in the [place] They recommend immediate implementation of the new equation refit without the race variable in all laboratories because the calculation does not include race. In addition to not including race in the calculation and reporting, it included diversity in its development, and has acceptable performance characteristics and potential consequences that do not disproportionately affect any one group of individuals. Performed By: #### L [id number] #### [facility] ([facility]) [address] [place] [address] Glucose [Mass/Vol] 90 mg/dL Normal 70-100 [facility] Comment on above: Performed By: #### L [id number] #### [facility] ([facility]) [address] [place] [address] Potassium [Moles/Vol] 3.9 mmol/L Normal 3.5-5.1 [facility] Comment on above: Performed By: #### L [id number] #### [facility] ([facility]) [address] [place] [address] Sodium [Moles/Vol] 143 mmol/L Normal 136-145 [facility] Comment on above: Performed By: #### L [id number] #### [facility] ([facility]) [address] [place] [address] Urea nitrogen [Mass/Vol] 23 mg/dL Normal 7-25 [facility] Comment on above: Performed By: #### L [id number] #### [facility] ([facility]) [address] [place] [address] UREA NITROGEN/CREATININE (MASS RATIO) IN SER/PLAS 23.2 Normal [facility] Comment on above: Performed By: #### L [id number] #### [facility] ([facility]) [address] [place] [address] CBCon 03-18-2024 Erythrocyte distribution width (RBC) [Ratio] 12.7 % Normal 11.5-15.0 [facility] Comment on above: Performed By: #### L [id number] #### [facility] [address] [place] [address] ERYTHROCYTE MEAN CORPUSCULAR HEMOGLOBIN CONCENTRATION (G/DL) BY AUTOMATED 34.2 g/dL Normal 32.0-35.0 [facility] Comment on above: Performed By: #### L [id number] #### [facility] [address] [place] [address] Hematocrit (Bld) [Volume fraction] 37.7 % Low 39.0-55.0 [facility] Comment on above: Performed By: #### L [id number] #### [facility] ([facility]) [address] [place] [address] Hemoglobin (Bld) [Mass/Vol] 12.9 g/dL Low 13.0-17.0 [facility] Comment on above: Performed By: #### L [id number] #### [facility] ([facility]) [address] [place] [address] MCH (RBC) [Entitic mass] 32.3 pg Normal 27.0-33.0 [facility] Comment on above: Performed By: #### L [id number] #### [facility] ([facility]) [address] [place] [address] MCV (RBC) [Entitic vol] 94.5 fL Normal 82.0-98.0 [facility] Comment on above: Performed By: #### L [id number] #### [facility] ([facility]) [address] [place] [address] PLATELETS (10*3/UL) IN BLOOD AUTOMATED COUNT 142 10*3/uL Low 150-400 [facility] Comment on above: Performed By: #### L [id number] #### [facility] ([facility]) [address] [place] [address] RBC (Bld) [#/Vol] 3.99 10*6/uL Low 4.20-5.70 [facility] Comment on above: Performed By: #### L [id number] #### [facility] [employer]) [address] [place] [address] WBC (Bld) [#/Vol] 5.72 10*3/uL Normal 4.00-10.60 [facility] Comment on above: Performed By: #### L [id number] #### [facility] ([facility]) [address] [address] MAGNESIUMon 03-18-2024 Magnesium [Mass/Vol] 1.8 mg/dL Low 1.9-2.7 [facility] Comment on above: Performed By: #### L [id number] ####[facility] ([facility])[address] [place] [address] TSH3 REFLEX TO FT4on 024 THYROTROPIN (MIU/L) IN SER/PLAS BY DETECTION LIMIT <= 0.05 MIU/L 0.70 mIU/L Normal 0.34-5.60 [facility] Comment on above: Performed By: #### L [id number] #### [facility] ([facility]) [address] [place] [address] 30on 03-17-2024 30 The patient is Moderately Stable - Low risk of patient condition declining or worsening The patient's goals for the shift include comfort The clinical goals for the shift include vss Problem: Pain - Adult Goal: Verbalizes/displays adequate comfort level or baseline comfort level Outcome: Progressing Flowsheets (Taken 03/17/2024 08) Verbalizes/displays adequate comfort level or baseline comfort level: Encourage patient to monitor pain and request assistance Assess pain using appropriate pain scale Administer analgesics based on type and severity of pain and evaluate response Implement non-pharmacological measures as appropriate and evaluate response Consider cultural and social influences on pain and pain management Notify Licensed Independent Practitioner if interventions unsuccessful or patient reports new pain Problem: Safety - Adult Goal: Free from fall injury Outcome: Progressing Flowsheets (Taken 03/17/2024 08) Free from fall injury: Assess patient frequently for physical needs Identify cognitive and physical deficits and behaviors that affect risk of falls Dulzura fall precautions as indicated by assessment Educate patient/family on patient safety, including physical limitations Instruct patient to call for assistance with activity based on assessment Modify environment to reduce risk of injury Consider OT/PT consult to assist with strengthening/mobility Problem: Discharge Planning Goal: Discharge to home or other facility with appropriate resources Outcome: Progressing Flowsheets (Taken 03/17/2024 08) Discharge to home or other facility with appropriate resources: Identify barriers to discharge with patient and caregiver Arrange for needed discharge resources and transportation as appropriate Identify discharge learning needs (meds, wound care, etc) Arrange for interpreters to assist at discharge as needed Refer to discharge planning if patient needs post-hospital services based on physician order or complex needs related to functional status, cognitive ability or social support system Problem: Chronic Conditions and Co-morbidities Goal: Patient's chronic conditions and co-morbidity symptoms are monitored and maintained or improved Outcome: Progressing Flowsheets (Taken 03/17/2024 08) Care Plan - Patient's Chronic Conditions and Co-Morbidity Symptoms are Monitored and Maintained or Improved: Monitor and assess patient's chronic conditions and comorbid symptoms for stability, deterioration, or improvement Collaborate with multidisciplinary team to address chronic and comorbid conditions and prevent exacerbation or deterioration Update acute care plan with appropriate goals if chronic or comorbid symptoms are exacerbated and prevent overall improvement and discharge Normal [facility] 36on 03-17-2024 36 Pt directed to be evaluated in ED and he was then transported to [facility]. Normal [facility] BASIC METABOLIC PANELon 07- Anion gap [Moles/Vol] 12 mmol/L Normal 7-20 [facility] Comment on above: Performed By: #### L [id number] #### [facility] ([facility]) [address] [place] [address] Calcium [Mass/Vol] 9.1 mg/dL Normal 8.6-10.3 [facility] Comment on above: Performed By: #### L [id number] #### [facility] ([facility]AKER) [address] [place] [address] Chloride [Moles/Vol] 109 mmol/L High 98-107 [facility] Comment on above: Performed By: #### L [id number] #### [facility] ([facility]) [address] [place] [address] CO2 [Moles/Vol] 27 mmol/L Normal 21-31 [facility] Comment on above: Performed By: #### L [id number] #### [facility] ([facility]) [address] [place] [address] Creatinine [Mass/Vol] 0.91 mg/dL Normal 0.70-1.30 [facility] Comment on above: Performed By: #### L [id number] #### [facility] ([facility]) [address] [place] [address] GLOMERULAR FILTRATION RATE ML/MIN/1.73 SQ M.PREDICTED 85.2 mL/min/1.73m*2 Normal >60.0 [facility] Comment on above: Result Comment: The [facility]???s estimated glomerular filtration rate (eGFR) will no longer include consideration of race in its calculation. The National Kidney Foundation???s eGFR Task Force developed new recommendations for the estimation of the glomerular filtration rate in the [place] They recommend immediate implementation of the new equation refit without the race variable in all laboratories because the calculation does not include race. In addition to not including race in the calculation and reporting, it included diversity in its development, and has acceptable performance characteristics and potential consequences that do not disproportionately affect any one group of individuals. Performed By: #### L [id number] #### [facility] ([facility]) [address] [address] Glucose [Mass/Vol] 87 mg/dL Normal 70-100 [facility] Comment on above: Performed By: #### L [id number] #### [facility] ([facility]) [address] [place] [address] Potassium [Moles/Vol] 3.8 mmol/L Normal 3.5-5.1 [facility] Comment on above: Performed By: #### L [id number] #### [facility] ([facility]) [address] [address] Sodium [Moles/Vol] 144 mmol/L Normal 136-145 [facility] Comment on above: Performed By: #### L [id number] #### [facility] ([facility]) [address] [place] [address] Urea nitrogen [Mass/Vol] 18 mg/dL Normal 7-25 [facility] Comment on above: Performed By: #### L [id number] #### [facility] ([facility] [address] [place] [address] UREA NITROGEN/CREATININE (MASS RATIO) IN SER/PLAS 19.8 Normal [facility] Comment on above: Performed By: #### L [id number] #### [facility] ([facility]) [address] [place] [address] CBCon 03-17-2024 Erythrocyte distribution width (RBC) [Ratio] 12.6 % Normal 11.5-15.0 [facility] Comment on above: Performed By: #### L [id number] #### [facility] ([facility]) [address] [place] [address] ERYTHROCYTE MEAN CORPUSCULAR HEMOGLOBIN CONCENTRATION (G/DL) BY AUTOMATED 34.6 g/dL Normal 32.0-35.0 [facility] Comment on above: Performed By: #### L [id number] #### [facility] ([facility]) [address] [place] [address] Hematocrit (Bld) [Volume fraction] 38.4 % Low 39.0-55.0 [facility] Comment on above: Performed By: #### L [id number] #### [facility] [address] [place] [address] Hemoglobin (Bld) [Mass/Vol] 13.3 g/dL Normal 13.0-17.0 [facility] Comment on above: Performed By: #### L [id number] #### [facility] [address] [place] [address] MCH (RBC) [Entitic mass] 33.1 pg High 27.0-33.0 [facility] Comment on above: Performed By: #### L [id number] #### [facility]) [address] [place] [address] MCV (RBC) [Entitic vol] 95.5 fL Normal 82.0-98.0 [facility] Comment on above: Performed By: #### L [id number] #### [facility] ([facility]AK[facility]) [address] [place] [address] PLATELETS (10*3/UL) IN BLOOD AUTOMATED COUNT 151 10*3/uL Normal 150-400 [facility] Comment on above: Performed By: #### L [id number] #### [facility] ([facility]) [address] [place] [address] RBC (Bld) [#/Vol] 4.02 10*6/uL Low 4.20-5.70 [facility] Comment on above: Performed By: #### L [id number] #### [facility] ([facility]) [address] [place] [address] WBC (Bld) [#/Vol] 5.62 10*3/uL Normal 4.00-10.60 [facility] Comment on above: Performed By: #### L [id number] #### [facility] ([facility]) [address] [place] [address] CONSULTon 03-17-2024 CONSULT -- Attestation signed by Liliane Solomon MD at 03/18/2024 11:19 PM I personally saw and examined the patient on the same date of service as the resident/fellow. I discussed the findings and therapeutic plan with the resident/fellow. Plan of care was discussed with patient, and patient is agreeable with plan. I agree with the documentation, except for any edits/updates below. Teaching Physician's Revisions: none Liliane Solomon MD PR Cardiology Cardiology Consult Note Reason for Consult: Bradycardia / sinus pauses HPI: Jeremiah Viera is a 78 y.o. male patient is presenting after being contacted by the telemetry unit regarding sinus pauses detected on the event monitor. Past medical history includes: CAD status post CABG HTN HLD MVR AVR Sinus bradycardia The patient was recently admitted to [facility], where he was found to have episodes of bradycardia. His beta-rosibel (Coreg) was held, and he was discharged with an event monitor and an EP follow-up. The event monitor detected sinus pauses, and he was contacted to present to the ED for further evaluation. In the ED, the patient was bradycardic with a heart rate down to 34. Labs showed magnesium level of 1.9, potassium level of 3.7. EKG showing sinus bradycardia. Patient was seen and examined today. He denies chest pain, exertional dyspnea, orthopnea/PND, lower extremity edema, palpitations, lightheadedness/dizzin ess, syncope. Cardiology ROS: GENERAL: Denies fever, chills, night sweats, weight loss. CARDIOVASCULAR: Refer to HPI RESPIRATORY: Denies SOB, coughing, wheezing GI: Denies abdominal pain, nausea/vomiting. PSYCH: Denies anxiety. Past Medical History He has a past medical history of Cardiovascular stress test abnormal (04/20/2022), Coronary artery disease, GERD (gastroesophageal reflux disease) (04/20/2022), Heart valve disease, Hyperlipidemia (04/20/2022), Hypertension, and Sinus bradycardia (04/20/2022). Surgical History He has a past surgical history that includes Coronary artery bypass graft (09/05/2001). Social History He reports that he has never smoked. He has never used smokeless tobacco. He reports that he does not currently use alcohol. He reports that he does not use drugs. Family History Family History Problem Relation Name Age of Onset Heart disease Father Heart disease Brother Heart disease Father's Brother Allergies Patient has no known allergies. Medications Medications Prior to Admission Medication Sig Dispense Refill Last Dose aspirin 81 mg chewable tablet Chew 1 tablet every day by oral route. carvedilol (Coreg) 3.125 mg tablet Take 1 tablet (3.125 mg) by mouth with breakfast and with evening meal. 180 tablet 3 furosemide (Lasix) 20 mg tablet Take 1 tablet (20 mg) by mouth in the morning. 90 tablet 3 lisinopril 40 mg tablet Take 1 tablet (40 mg) by mouth in the morning. 90 tablet 3 NIFEdipine XL (Procardia XL) 60 mg 24 hr tablet Take 1 tablet (60 mg) by mouth in the morning. 90 tablet 3 nitroglycerin (Nitrostat) 0.[address] 0.4 mg under the tongue every 5 (five) minutes if needed. pravastatin (Pravachol) 40 mg tablet TAKE 1 TABLET BY MOUTH AT BEDTIME 90 tablet 3 Last Recorded Vitals Patient Vitals for the past 24 hrs: BP Temp Temp src Pulse Resp SpO2 Height Weight 03/17/24 1200 165/52 36.7 ???C (98.1 ???F) Temporal (!) 36 13 99 % -- -- 03/17/24 0800 (!) 114/98 36.6 ???C (97.9 ???F) Temporal (!) 34 18 100 % -- -- 03/17/24 0510 -- -- -- -- -- -- -- 71.7 kg (158 lb) 03/17/24 0503 161/54 36.6 ???C (97.9 ???F) Temporal (!) 49 17 98 % -- -- 03/16/24 2321 148/52 36.6 ???C (97.9 ???F) Temporal (!) 39 14 99 % 1.803 m (5' 11 ) 72.6 kg (160 lb) Physical Examination: GENERAL: AOx3, in no acute distress. HEAD: Atraumatic, normocephalic. EYES: JAGDEEP, EOMI. NECK: No JVD present. CARDIAC: RRR. No murmur, rubs, or gallops. RESPIRATORY: CTAB, no increased effort of breathing. ABDOMEN: Soft, nontender, nondistended. EXTREMITIES: No lower extremity edema, peripheral pulses are 2+ bilaterally. NEURO: No focal deficits Relevant Lab Results Encounter Date: 03/16/24 ECG 12 lead Result Value Ventricular Rate 41 Atrial Rate 41 NC Interval 208 QRS DURATION 114 QT Interval 474 QTC CALCULATION(BAZETT) 391 P [place] 75 R-[place] 0 T Wave [place] 4 Impression Marked sinus bradycardia Moderate voltage criteria for LVH, may be normal variant ( Sokolow-Rosado , Dillon product ) Abnormal ECG When compared with ECG of 14-FEB-2002 05:18, Vent. rate has decreased BY 51 BPM Criteria for Inferior infarct are no longer Present Non-specific change in ST segment in Lateral T wave inversion no longer evident in Anterolateral leads QT has shortened Confirmed by Pebbles (more content not included)... Normal [facility] MAGNESIUMon 03-17-2024 Magnesium [Mass/Vol] 1.8 mg/dL Low 1.9-2.7 [facility] Comment on above: Performed By: #### L [id number] #### [facility] ([facility]) [address] [place] [address] 30on 03-16-2024 30 The patient is Moderately Stable - Low risk of patient condition declining or worsening The patient's goals for the shift include COMFORT The clinical goals for the shift include VSS Over the shift, the patient did make progress toward his goals. Normal [facility] 30 The patient is Moderately Stable - Low risk of patient condition declining or worsening The patient's goals for the shift include COMFORT The clinical goals for the shift include VSS [facility] 36on 03-16-2024 36 Called [place] [facility] with Soledad she stated that she is giving the patient a call to schedule an appointment. [facility] 36 Dr Flores called in requesting that patient be scheduled with cardiology next week. Contacted patient he is seen at [place] by Indio Tenoiro NP. He stated that he will call there to get scheduled he is closer to there. [facility] 36 I was called by the monitor [employer] due to bradycardia, HR 22, during sleep time, I called the patient today, he was asymptomatic , and denies dizziness or syncope. I called the heart and vascular center to schedule the patient for an appointment within 1 week. I educated the patient to go to the ER if he feels lightheadedness or fatigued Normal [facility] B-TYPE NATRIURETIC PEPTIDEon 03-16-2024 Natriuretic peptide B (Bld) [Mass/Vol] 142 pg/mL High 0-100 [facility] Comment on above: Performed By: #### L [id number] #### [facility] ([facility]AKER) [address] [place] [address] Basophils Auto (Bld) [#/Vol] on 03-16-2024 Basophils (Bld) [#/Vol] 0.1 10 3/uL 0.0-0.1 [facility] Basophils/100 WBC Auto (Bld) on 03-16-2024 Basophils/100 WBC (Bld) 0.8 % 0.2-2.0 [facility] CBC WITH AUTO DIFFERENTIALon 03-16-2024 Basophils (Bld) [#/Vol] 0.05 10*3/uL Normal 0.00-0.20 [facility] Comment on above: Performed By: #### L [id number] #### [facility] (BE[facility]ER) [address] [place] [address] Basophils/100 WBC (Bld) 0.8 % Normal 0.0-1.0 [facility] Comment on above: Performed By: #### L [id number] #### [facility] (BEAKER) [address] [place] [address] Eosinophils (Bld) [#/Vol] 0.17 10*3/uL Normal 0.00-0.50 [facility] Comment on above: Performed By: #### L [id number] #### [facility] (BE[facility]ER) [address] [place] [address] Eosinophils/100 WBC (Bld) 2.7 % Normal 0.0-6.0 [facility] Comment on above: Performed By: #### L [id number] #### [facility] (BEAKER) [address] [place] [address] Erythrocyte distribution width (RBC) [Ratio] 12.7 % Normal 11.5-15.0 [facility] Comment on above: Performed By: #### L [id number] #### [facility] (BEAKER) [address] [place] [address] ERYTHROCYTE MEAN CORPUSCULAR HEMOGLOBIN CONCENTRATION (G/DL) BY AUTOMATED 34.5 g/dL Normal 32.0-35.0 [facility] Comment on above: Performed By: #### L [id number] #### [facility] (BE[facility]ER) [address] [place] [address] Hematocrit (Bld) [Volume fraction] 39.1 % Normal 39.0-55.0 [facility] Comment on above: Performed By: #### L [id number] #### [facility] [address] [place] [address] Hemoglobin (Bld) [Mass/Vol] 13.5 g/dL Normal 13.0-17.0 [facility] Comment on above: Performed By: #### L [id number] #### [facility] (BEAKER) [address] [place] [address] Immature granulocytes (Bld) [#/Vol] 0.03 10*3/uL Normal 0.00-0.20 [facility] Comment on above: Performed By: #### L [id number] #### [facility] (BEAKER) [address] [place] [address] Immature granulocytes/100 WBC (Bld) 0.5 % Normal 0.0-1.0 [facility] Comment on above: Performed By: #### L [id number] #### [facility] (BE[facility]ER) [address] [place] [address] Lymphocytes (Bld) [#/Vol] 1.22 10*3/uL Normal 1.20-4.00 [facility] Comment on above: Performed By: #### L [id number] #### [facility] (BEAKER) [address] [place] [address] Lymphocytes/100 WBC (Bld) 19.1 % Low 20.0-45.0 [facility] Comment on above: Performed By: #### L [id number] #### [facility] ([facility]) [address] [place] [address] MCH (RBC) [Entitic mass] 32.8 pg Normal 27.0-33.0 [facility] Comment on above: Performed By: #### L [id number] #### [facility] ([facility]) [address] [place] [address] MCV (RBC) [Entitic vol] 94.9 fL Normal 82.0-98.0 [facility] Comment on above: Performed By: #### L [id number] #### [facility] ([facility]) [address] [place] [address] Monocytes (Bld) [#/Vol] 0.85 10*3/uL Normal 0.10-1.00 [facility] Comment on above: Performed By: #### L [id number] #### [facility] ([facility]) [address] [place] [address] Monocytes/100 WBC (Bld) 13.3 % High 5.0-12.0 [facility] Comment on above: Performed By: #### L [id number] #### [facility] ([facility]) [address] [place] [address] Neutrophils (Bld) [#/Vol] 4.06 10*3/uL Normal 1.60-7.60 [facility] Comment on above: Performed By: #### L [id number] #### [facility] ([facility]) [address] [place] [address] Neutrophils/100 WBC (Bld) 63.6 % Normal 40.0-72.0 [facility] Comment on above: Performed By: #### L [id number] #### [facility] ([facility]) [address] [place] [address] NRBC (PER 100 WBCS) BY AUTOMATED COUNT 0.0 % Normal 0 [facility] Comment on above: Performed By: #### L [id number] #### [facility] ([facility]) [address] [place] [address] PLATELETS (10*3/UL) IN BLOOD AUTOMATED COUNT 157 10*3/uL Normal 150-400 [facility] Comment on above: Performed By: #### L [id number] #### [facility] ([facility]) [address] [place] [address] RBC (Bld) [#/Vol] 4.12 10*6/uL Low 4.20-5.70 [facility] Comment on above: Performed By: #### L [id number] #### [facility] ([facility]) [address] [place] [address] WBC (Bld) [#/Vol] 6.38 10*3/uL Normal 4.00-10.60 [facility] Comment on above: Performed By: #### L [id number] #### [facility] ([facility]) [address] [place] [address] COMPREHENSIVE METABOLIC PANE [facility] 03-16-2024 Albumin [Mass/Vol] 4.3 g/dL Normal 3.5-5.7 [facility] Comment on above: Performed By: #### L [id number] #### [facility] ([facility]) [address] [place] [address] ALP [Catalytic activity/Vol] 63 U/L Normal 34-104 [facility] Comment on above: Performed By: #### L [id number] #### [facility] ([facility]) [address] [place] [address] ALT [Catalytic activity/Vol] 14 U/L Normal 7-52 [facility] Comment on above: Performed By: #### L [id number] #### [facility] ([facility]) [address] [place] [address] Anion gap [Moles/Vol] 13 mmol/L Normal 7-20 [facility] Comment on above: Performed By: #### L [id number] #### [facility] ([facility]) [address] [place] [address] AST [Catalytic activity/Vol] 20 U/L Normal 13-39 [facility] Comment on above: Performed By: #### L [id number] #### [facility] (BEAKER) [address] [place] [address] Bilirubin [Mass/Vol] 0.3 mg/dL Normal 0.3-1.0 [facility] Comment on above: Performed By: #### L [id number] #### [facility] [address] [place] [address] Calcium [Mass/Vol] 9.3 mg/dL Normal 8.6-10.3 [facility] Comment on above: Performed By: #### L [id number] #### [facility] (BEAKER) [address] [place] [address] Chloride [Moles/Vol] 109 mmol/L High 98-107 [facility] Comment on above: Performed By: #### L [id number] #### [facility] ([facility]ER) [address] [place] [address] CO2 [Moles/Vol] 23 mmol/L Normal 21-31 [facility] Comment on above: Performed By: #### L [id number] #### [facility] (BEAKER) [address] [place] [address] Creatinine [Mass/Vol] 0.92 mg/dL Normal 0.70-1.30 [facility] Comment on above: Performed By: #### L [id number] #### [facility] [address] [place] [address] GLOMERULAR FILTRATION RATE ML/MIN/1.73 SQ M.PREDICTED 84.1 mL/min/1.73m*2 Normal >60.0 [facility] Comment on above: Result Comment: The [facility]???s estimated glomerular filtration rate (eGFR) will no longer include consideration of race in its calculation. The National Kidney Foundation???s eGFR Task Force developed new recommendations for the estimation of the glomerular filtration rate in the [place] They recommend immediate implementation of the new equation refit without the race variable in all laboratories because the calculation does not include race. In addition to not including race in the calculation and reporting, it included diversity in its development, and has acceptable performance characteristics and potential consequences that do not disproportionately affect any one group of individuals. Performed By: #### L [id number] #### [facility] ([facility]) [address] [place] [address] Glucose [Mass/Vol] 92 mg/dL Normal 70-100 [facility] Comment on above: Performed By: #### L [id number] #### [facility] ([facility]) [address] [place] [address] Potassium [Moles/Vol] 3.7 mmol/L Normal 3.5-5.1 [facility] Comment on above: Performed By: #### L [id number] #### [facility] ([facility]) [address] [place] [address] Protein [Mass/Vol] 6.3 g/dL Normal 6.0-8.3 [facility] Comment on above: Performed By: #### L [id number] #### [facility] ([facility]) [address] [place] [address] Sodium [Moles/Vol] 141 mmol/L Normal 136-145 [facility] Comment on above: Performed By: #### L [id number] #### [facility] ([facility]) [address] [place] [address] Urea nitrogen [Mass/Vol] 20 mg/dL Normal 7-25 [facility] Comment on above: Performed By: #### L [id number] #### [facility] ([facility]) [address] [place] [address] UREA NITROGEN/CREATININE (MASS RATIO) IN SER/PLAS 21.7 Normal [facility] Comment on above: Performed By: #### L [id number] #### [facility] ([facility]) [address] [place] [address] Eosinophils/100 WBC Auto (Bl d)on 03-16-2024 Eosinophils/100 WBC (Bld) 2.2 % 0.9-7.0 [facility] Erythrocyte distribution wid th Auto (RBC) [Ratio]on 03-16-2024 Erythrocyte distribution width (RBC) [Ratio] 12.4 % 11.0-15.0 [facility] Estimated glomerular filtrat ion rate (GFR) non- Americanon 03-16-2024 GFR/1.73 sq M.predicted among non-blacks MDRD (S/P/Bld) [Vol rate/Area] 59 mL/min/{1.73_m2} Low >=60 [facility] Globulin Calc (S) [Mass/Vol] on 03-16-2024 Globulin (S) [Mass/Vol] 2.9 g/dL [facility] Hematocrit Auto (Bld) [Volum e fraction]on 03-16-2024 Hematocrit (Bld) [Volume fraction] 39.7 % Low 42.0-54.0 [facility] Hemoglobin [Mass/volume] in Bloodon 03-16-2024 Hemoglobin (Bld) [Mass/Vol] 13.5 g/dL Low 14.0-18.0 [facility] INR in Platelet poor plasma by Coagulation assayon 03-16-2024 INR Coag (PPP) [Relative time] 0.99 {INR} [facility] Comment on above: DESIRED INR:2.0-3.0 CONDITIONS NOT LISTED BELOW2.5-3.5 FOR PROSTHETIC HEART VALVE REPLACEMENT2.5-3.5 RECURRENT THROMBOSIS Laboratory - Chemistry and C hemistry - challengeon 03-16-2024 Albumin [Mass/Vol] 4.0 g/dL 3.4-5.0 [facility] ALP [Catalytic activity/Vol] 76 U/L 46-116 [facility] ALT [Catalytic activity/Vol] 21 U/L 16-63 [facility] AST [Catalytic activity/Vol] 20 U/L 15-37 [facility] Bilirubin [Mass/Vol] 0.6 mg/dL 0.2-1.0 [facility] Calcium [Mass/Vol] 9.1 mg/dL 8.5-10.1 [facility] Chloride [Moles/Vol] 106 mmol/L 98-107 [facility] CO2 [Moles/Vol] 27.0 mmol/L 21.0-32.0 [facility] Creatinine [Mass/Vol] 1.19 mg/dL 0.70-1.30 [facility] GFR/1.73 sq M.predicted MDRD (S/P/Bld) [Vol rate/Area] mL/min/{1.73_m2} >=60 [facility] Glucose [Mass/Vol] 140 mg/dL High 74-106 [facility] Natriuretic peptide B (Bld) [Mass/Vol] 346.0 pg/mL <=1800.0 [facility] Potassium [Moles/Vol] 3.9 mmol/L 3.5-5.1 [facility] Protein [Mass/Vol] 6.9 g/dL 6.4-8.2 [facility] Sodium [Moles/Vol] 142 mmol/L 136-145 [facility] Urea nitrogen [Mass/Vol] 22.0 mg/dL High 7.0-18.0 [facility] Urea nitrogen/Creatinine [Mass ratio] 18.5 mg/mg [facility] Laboratory - Hematology and Cell countson 03-16-2024 Immature granulocytes/100 WBC (Bld) 0.4 % 0.0-0.5 [facility] Leukocytes [#/volume] correc mika for nucleated erythrocytes in Blood by Automated counon 03-16-2024 WBC corrected for nucl RBC Auto (Bld) [#/Vol] 7.9 10 3/uL 4.0-11.0 [facility] Lymphocytes Auto (Bld) [#/Vo l]on 03-16-2024 Lymphocytes (Bld) [#/Vol] 1.6 10 3/uL 1.2-3.8 [facility] Lymphocytes/100 WBC Auto (Bl d)on 03-16-2024 Lymphocytes/100 WBC (Bld) 20.8 % 20.5-60.0 [facility] MAGNESIUMon 03-16-2024 Magnesium [Mass/Vol] 1.9 mg/dL Normal 1.9-2.7 [facility] Comment on above: Performed By: #### L [id number] #### [facility] ([facility]) [address] [place] [address] MCH Auto (RBC) [Entitic mass ]on 03-16-2024 MCH (RBC) [Entitic mass] 32.8 pg 25.9-34.0 [facility] MCHC Auto (RBC) [Mass/Vol]on 03-16-2024 MCHC (RBC) [Mass/Vol] 34.0 g/dL 29.9-35.2 [facility] MCV Auto (RBC) [Entitic vol] on 03-16-2024 MCV (RBC) [Entitic vol] 96.4 fL High 80.0-94.0 [facility] Monocytes Auto (Bld) [#/Vol] on 03-16-2024 Monocytes (Bld) [#/Vol] 0.6 10 3/uL 0.3-0.8 [facility] Monocytes/100 WBC Auto (Bld) on 03-16-2024 Monocytes/100 WBC (Bld) 8.0 % 1.7-12.0 [facility] Neutrophils Auto (Bld) [#/Vo l]on 03-16-2024 Neutrophils (Bld) [#/Vol] 5.3 10 3/uL 1.4-6.5 [facility] Neutrophils/100 WBC Auto (Bl d)on 03-16-2024 Neutrophils/100 WBC (Bld) 67.8 % 43.0-75.0 [facility] No Panel Informationon 03-16 Eosinophils # (Auto) 0.2 10 3/uL 0.0-0.7 [facility] Immature Granulocyte # (Auto) 0.03 10 3/uL 0.00-0.03 [facility] Troponin I High Sensitivity 12.2 pg/mL 4.0-76.1 [facility] Comment on above: CUT-OFF POINTS HAVE BEEN ESTABLISHED BASED ON THE FOURTHUNIVERSAL DEFINITION OF MYOCARDIAL INFARCTION. THE UPPERREFERENCE LIMIT (URL) OF TROPONIN, DEFINED THE 99THPERCENTILE OF cTnI DISTRIBUTION IN A REFERENCE POPULATION,HAS BEEN CONFIRMED THE DECISION THRESHOLD FOR MIDIAGNOSIS.99TH PERCENTILE = 76.2 PG/MLNOTE: HIGH-SENSITIVITY TROPONIN ASSAY IS NOT INTENDED TO BEUSED IN ISOLATION BUT SHOULD BE INTERPRETED IN CONJUNCTIONWITH OTHER DIAGNOSTIC AND CLINICAL INFORMATION. PHOSPHORUSon 03-16-2024 Magnesium [Mass/Vol] 3.2 mg/dL Normal 2.5-5.0 [facility] Comment on above: Performed By: #### L [id number] #### [facility] ([facility]) [address] [place] [address] PROTIME-INRon 03-16-2024 INR IN PPP BY COAGULATION ASSAY 1.04 Normal 0.90-1.10 [facility] Comment on above: Result Comment: ACCC P RECOMMENDED INR FOR WARFARIN THERAPY CONDITION INR PROPHYLAXIS OF VENOUS THROMBOSIS 2-3 (HIGH-RISK SURGERY) TREATMENT OF VENOUS THROMBOSIS 2-3 TREATMENT OF PULMONARY EMBOLISM 2-3 PREVENTION OF SYSTEMIC EMBOLISM: 2-3 ACUTE MYOCARDIAL INFARCTION TISSUE HEART VALVES VALVULAR HEART DISEASE ATRIAL FIBRILLATION RECURRENT SYSTEMIC EMBOLISM MECHANICAL HEART VALVE 2.5-3.5 FROM: ORAL ANTICOAGULANTS. MECHANISM OF ACTION, CLINICAL EFFECTIVENESS, AND OPTIMAL THERAPEUTIC RANGE. CHEST 1995;108:231S-246S. Performed By: #### L [id number] ####[facility] ([facility])[address] [place] [address] PROTHROMBIN TIME (PT) IN PPP BY COAGULATION ASSAY 13.6 Seconds Normal 12.3-14.8 [facility] Comment on above: Performed By: #### L [id number] ####[facility] ([facility])[address] [place] [address] Platelet mean volume Auto (B ld) [Entitic vol]on 03-16-2024 Platelet mean volume (Bld) [Entitic vol] 11.0 fL 9.5-13.5 [facility] Platelets Auto (Bld) [#/Vol] on 03-16-2024 Platelets (Bld) [#/Vol] 163 10 3/uL 150-450 [facility] Prothrombin time (PT)on 03-05 PT Coag (PPP) [Time] 10.5 s 9.0-11.6 [facility] RBC Auto (Bld) [#/Vol]on RBC (Bld) [#/Vol] 4.12 10 6/uL Low 4.70-6.10 [facility] Serum or plasma albumin/glob ulin mass ratioon 03-16-2024 Albumin/Globulin [Mass ratio] 1.4 {ratio} [facility] Serum or plasma anion gap de terminationon 03-16-2024 Anion gap [Moles/Vol] 12.9 mmol/L [facility] TROPONIN Ion 03-16-2024 Troponin I.cardiac [Mass/Vol] 0.01 ng/mL Normal 0.00-0.04 [facility] Comment on above: Performed By: #### L [id number] #### [facility] ([facility]) [address] [place] [address] Telephoneon 03-16-2024 Telephone [phone] Donaldo Viera 1945 M Date Provider Department Center 03/16/2024 DON MCCRARY [facility] IM [facility] Family History Problem Relation Age of Onset Heart disease Father Heart disease Brother Heart disease Father's Brother Family Status - Relation Status Age at Father Brother Father's Brother Normal [facility] Telephone [phone] Donaldo Viera 1945 M Date Provider Department Center 03/16/2024 INDIO CONNELLY [facility] CARD PR HeartVAS Family History Problem Relation Age of Onset Heart disease Father Heart disease Brother Heart disease Father's Brother Family Status - Relation Status Age at Father Brother Father's Brother Reason for Visit and Comments: Appointment [375] Normal [facility] 36on 07-03-2024 36 Regarding reports fr om event monitor: MONSERRAT Skinner MD; DANNY Francis- During sleep had > 3 second pause- I would expect I scheduled him for a F/U with you Jocelyn- will you call him and see if he is having any symptoms- lightheadedness/dizzin ess, syncope Thank you Spoke with patient and he was sleeping this morning at 2am when the pause occurred. He feels great and has zero symptoms. Normal [facility] 37on 02-23-2024 37 Decrease coreg to 3.125 mg twice a day Event monitor 30 days Normal [facility] Office Visiton 02-23-2024 Follow-up visit [id number] Donaldo Viera 1945 M Date Provider Department Center 02/23/2024 Neeta-INDIO TENORIO QUENTIN [facility] Family History Problem Relation Age of Onset Heart disease Father Heart disease Brother Heart disease Father's Brother Family Status - Relation Status Age at Father Brother Father's Brother Level of Service:99591 NC OFFICE/OUTPATIENT ESTABLISHED MOD MDM 30 MIN Normal [facility] Basic Metabolic Panelon - Calcium [Mass/Vol] 9.0656824 mg/dL 8.5-10 .1 mg/dL [facility] Other CO2 [Moles/Vol] 27.68036164 mmol/L 21.0-3 2.0 mmol/L [facility] Other Creatinine [Mass/Vol] 1.66814661 mg/dL 0.70-1.30 mg/dL [facility] Other Potassium [Moles/Vol] 4.94904479 mmol/L 3.5-5.1 mmol/L [facility] Other Urea nitrogen [Mass/Vol] 15.7024002 mg/dL 7.0-18.0 mg/dL [facility] Other Basic Metabolic Panel see note [facility] Other Basic Metabolic Panel 144 mmol/L 136-145 mmol/L [facility] Other Basic Metabolic Panel 96 mg/dL 74-106 mg/dL [facility] [employer] Other Basic Metabolic Panel >60 mL/min/1.73m2 >=60 mL/min/1.73m2 [facility] [employer] Other CBC AUTO DIFFon 12-17-2022 BASO # 0.0 103/ul Normal 0.0-0.1 [facility] Comment on above: Performed By: #### C BC #### [facility] [address] [address] [address] Abdulaziz Wallis Basophils/100 WBC (Bld) 0.7 % Normal 0.2-2.0 [facility] Comment on above: Performed By: #### C BC #### [facility] [address] [place] [address] Dr. Abdulaziz Wallis EO # 0.2 103/ul Normal 0.0-0.7 [facility] Comment on above: Performed By: #### C BC #### [facility] [address] [place] [address] Dr. Abdulaziz Wallis Eosinophils/100 WBC (Bld) 3.9 % Normal 0.9-7.0 [facility] Comment on above: Performed By: #### C BC #### [facility] [address] [place] [address] Dr. Abdulaziz Wallis Erythrocyte distribution width (RBC) [Ratio] 13.0 % Normal 11.0-15.0 [facility] Comment on above: Performed By: #### C BC #### [facility] [address] [place] [address] Dr. Abdulaziz Wallis Hematocrit (Bld) [Volume fraction] 41.1 % Critically low 42.0-54.0 [facility] Comment on above: Performed By: #### C BC #### [facility] [address] [place] [address] Dr. Abdulaziz Wallis Hemoglobin (Bld) [Mass/Vol] 14.0 g/dL Normal 14.0-18.0 [facility] Comment on above: Performed By: #### C BC #### [facility] [address] [place] [address] Dr. Abdulaziz Wallis IG # 0.03 10e3/ul Normal 0.00-0.03 [facility] Comment on above: Performed By: #### C BC #### [facility] [address] [place] [address] Dr. Abdulaziz Wallis IG % 0.5 % Normal 0.0-0.5 [facility] Comment on above: Performed By: #### C BC #### [facility] [address] [place] [address] Dr. Abdulaziz Wallis LYMPH # 1.3 103/ul Normal 1.2-3.8 [facility] Comment on above: Performed By: #### C BC #### [facility] [address] [place] [address] Dr. Abdulaziz Wallis Lymphocytes/100 WBC (Bld) 23.6 % Normal 20.5-60.0 [facility] Comment on above: Performed By: #### C BC #### [facility] [address] [place] [address] Dr. Abdulaziz Wallis MANUAL DIFF REQ NO Normal [facility] Comment on above: Performed By: #### C BC #### [facility] [address] [place] [address] Dr. Abdulaziz Wallis MCH (RBC) [Entitic mass] 32.7 pg Normal 25.9-34.0 [facility] Comment on above: Performed By: #### C BC #### [facility] [address] [place] [address] Dr. Abdulaziz Wallis MCHC (RBC) [Mass/Vol] 34.1 g/dL Normal 29.9-35.2 [facility] Comment on above: Performed By: #### C BC #### [facility] [address] [place] [address] Dr. Abdulaziz Wallis MCV (RBC) [Entitic vol] 96.0 fL Critically high 80.0-94.0 [facility] Comment on above: Performed By: #### C BC #### [facility] [address] [place] [address] Dr. Abdulaziz Wallis MONO # 0.6 103/ul Normal 0.3-0.8 [facility] Comment on above: Performed By: #### C BC #### [facility] [address] [place] [address] Dr. Abdulaziz Wallis Monocytes/100 WBC (Bld) 11.0 % Normal 1.7-12.0 [facility] Comment on above: Performed By: #### C BC #### [facility] [address] [place] [address] Dr. Abdulaziz Wallis NEUT # 3.4 103/ul Normal 1.4-6.5 [facility] Comment on above: Performed By: #### C BC #### [facility] [address] [place] [address] Dr. Abdulaziz Wallis Neutrophils/100 WBC (Bld) 60.3 % Normal 43.0-75.0 [facility] Comment on above: Performed By: #### C BC #### [facility] [address] [place] [address] Dr. Abdulaziz Wallis Platelet mean volume (Bld) [Entitic vol] 10.4 fL Normal 9.5-13.5 [facility] Comment on above: Performed By: #### C BC #### [facility] [address] [place] [address] Dr. Abdulaziz Wallis PLT 158 103/ul Normal 150-450 [facility] Comment on above: Performed By: #### C BC #### [facility] [address] [place] [address] Dr. Abdulaziz Wallis RBC 4.28 106/ul Critically low 4.70-6.10 [facility] Comment on above: Performed By: #### C BC #### [facility] [address] [place] [address] Dr. Abdulaziz Wallis WBC 5.6 103/ul Normal 4.0-11.0 [facility] Comment on above: Performed By: #### C BC #### [facility] [address] [place] [address] Dr. Abdulaziz Wallis Complete Blood Count and Dif deo 12-17-2022 Anisocytosis Ql (Bld) [employer] Other Basophilic stippling LM Ql (Bld) [employer] Other RBC morphology finding Nom (Bld) [employer] Other Complete Blood Count and Diff [employer] Other ECHOCARDIO M/2D COMPLETEon 0 12-17-2022 ECHOCARDIO M/2D COMPLETE Patient: JEREMIAH VIERA Exam Date: 12/17/2022 : 1945 Gender:M Ordering : DR TEDDY QUINONES M.D. Admission #: [id number] Family : DR GRZEGORZ BUI D.O. Order #: [id number] CLICK HERE TO VIEW EXAM ECHOCARDIOGRAM REPORT PROCEDURE: CARDIO PULMONARY ECHOCARDIO M/2D COMP INDICATIONS: Tricuspid valve regurgitation, hypertension, CABG x 4 COMPARISON: None. DESCRIPTION: COMPLETE ECHOCARDIOGRAM Real-time transthoracic echocardiography with 2D, M-mode, spectral and color flow Doppler performed. QUALITY: Technical quality was good. LEFT VENTRICLE: Normal chamber size. Normal left ventricular wall thickness. Systolic function is at the lower limits of normal. The septum is abnormal in motion consistent with pressure/volume overload. LV EF: Lower limits of normal left ventricular ejection fraction, (50-55%). DIASTOLIC: Grade II diastolic dysfunction. ATRIAL SEPTUM: Visually appears intact. LEFT ATRIUM: Severe dilatation. RIGHT ATRIUM: Severe dilatation. RIGHT VENTRICLE: Moderate dilatation. Mildly decreased right ventricular systolic function. TRICUSPID VALVE: Normal mobility and thickness. No stenosis with moderate regurgitation. Doppler studies reveal moderately (45-60) elevated right sided pressures. RVSP 53 mmHg MITRAL VALVE: Normal mobility and thickness. No evidence of mitral valve stenosis. There is no mitral annular calcification. Mild to moderate mitral regurgitation. AORTIC VALVE: Normal trileaflet appearance. No visible sclerosis. Normal leaflet mobility. No evidence of aortic valve stenosis. Mild aortic regurgitation. AORTIC ROOT: Normal diameter and appearance. PULMONIC VALVE: Normal thickness and mobility. No stenosis. Mild to moderate regurgitation. PERICARDIUM: No evidence of pericardial effusion. IVC: Collapses with inspirations. PLEURA: CONCLUSION: 1. Left ventricle is normal in size. Systolic function is at the lower limits of normal. LVEF is 50 to 55%. 2. Moderately dilated right ventricle with mildly reduced systolic function. 3. Grade 2 diastolic dysfunction. 4. Severe biatrial dilatation. 5. Moderate tricuspid regurgitation. 6. Mild to moderate pulmonic regurgitation. 7. Mild aortic regurgitation. 8. Mild to moderate mitral regurgitation. 9. Moderately elevated right-sided pressures. Adult Echocardiography Procedure Report Left Ventricle LVEDD (3.7 - 5.6 cm): 5.60 cm LVESD (2.2 - 4.0 cm): 4.16 cm LVIVS thickness (0.6 - 1.2 cm): 0.92 cm LVPW thickness (0.5 - 1.0 cm): 0.93 cm e': 0.14 m/s E - e': 3.92 LVOT Max Gradient: 1.38 mm[Hg] Peak Velocity (LVOT): 0.59 m/s LVOT Diameter 2.39 cm Left Ventricular Ejection Fraction: 50-55 % Left Atrium LA Volume Index (2D A2C): 114.55 ml, 114.55 ml Left Atrium Systolic Dimension: 5.08 cm Mitral Valve MV E to A Ratio: 1.42 Mitral Valve A-Wave Peak Velocity: 0.39 m/s Mitral Valve E-Wave Peak Velocity: 0.55 m/s Right Ventricle Aorta AO Root Diam: 3.52 cm Aortic Valve AoV Area (Peak Jacky): 2.33 cm2, 2.33 cm2 Peak Velocity(Antegrade Flow): 1.13 m/s Peak Gradient(Antegrade Flow): 5.10 mm[Hg] Tricuspid Valve Peak Velocity (Regurgitant Flow): 3.09 m/s, 3.36 m/s, 2.86 m/s Peak Velocity: 0.48 m/s Pulmonic Valve Peak Velocity: 1.12 m/s, 1.12 m/s Peak Gradient: 5.00 mm[Hg], 5.00 mm[Hg] Right Atrium Right Atrium Systolic Pressure: 86.85 ml, 86.85 ml Dictated by: Rivera Kovacs M.D. on 12/17/2022 at 19:46 Approved by: Rivera Kovacs M.D. on 12/17/2022 at 19:52 Normal [facility] LIPID PROFILEon 12-17-2022 CHOL-HDL RATIO NORM SEE BELOW Normal [facility] Comment on above: Result Comment: 3.3 - 4.4 LOW RISK 4.4 - 7.1 AVERAGE RISK 7.1 - 11.0 MODERATE RISK >11.0 HIGH RISK Performed By: #### L IPID, ALT, BMP #### [facility] [address] [place] [address] Dr. Abdulaziz Wallis Cholesterol [Mass/Vol] 127 mg/dL <=200 mg/dL [facility] Comment on above: Performed By: #### L IPID, ALT, BMP #### [facility] [address] [place] [address] Dr. Abdulaziz Wallis Cholesterol in HDL [Mass/Vol] 48 mg/dL 40-60 mg/dL [facility] Comment on above: Performed By: #### L IPID, ALT, BMP #### [facility] [address] [place] [address] Dr. Abdulaziz Wallis Cholesterol in LDL [Mass/Vol] 57.6 mg/dL Normal [facility] Comment on above: Performed By: #### L IPID, ALT, BMP #### [facility] [address] [place] [address] Dr. Abdulaziz Wallis Cholesterol.total/C holesterol in HDL [Mass ratio] 2.6 {ratio} [facility] Comment on above: Performed By: #### L IPID, ALT, BMP #### [facility] [address] [place] [address] Dr. Abdulaziz Wallis HDL NORMAL > or = 60 mg/dl - LO W CARDIOVASCULAR RISK <40 mg/dl - HIGH CARDIOVASCULAR RISK Normal [facility] Comment on above: Performed By: #### L IPID, ALT, BMP #### [facility] [address] [place] [address] Dr. Abdulaziz Wallis LDL CALC NORMAL SEE BELOW Normal [facility] Comment on above: Result Comment: <100 mg/dl OPTIMAL 100 - 129 mg/dl NEAR OR ABOVE OPTIMAL 130 - 159 mg/dl BORDERLINE HIGH 160 - 189 mg/dl HIGH >190 mg/dl VERY HIGH Performed By: #### L IPID, ALT, BMP #### [facility] [address] [place] [address] Dr. Abdulaziz Wallis Triglyceride [Mass/Vol] 107 mg/dL <=150 mg/dL [facility] Comment on above: Performed By: #### L IPID, ALT, BMP #### [facility] [address] [address] [address] Abdulaziz Wallis VLDL CALC 21.4 mg/dL Normal [facility] Comment on above: Performed By: #### L IPID, ALT, BMP #### [facility] [address] [address] [address] Abdulaziz Wallis Lipid Panelon 12-17-2022 Lipid Panel > or = 60 mg/dl - LO W CARDIOVASCULAR RISK <40 mg/dl - HIGH CARDIOVASCULAR RISK [facility] Other Lipid Panel SEE BELOW [employer] Other Lipid Panel 57.6 mg/dL [employer] Other Lipid Panel 21.4 mg/dL [facility] [employer] Other PROF CHEM 8 (BAS METB)on Anion gap [Moles/Vol] 14.9 mmol/L [facility] Comment on above: Performed By: #### L IPID, ALT, BMP ####[facility] [id number] [address]DrAliyah Wallis Calcium [Mass/Vol] 9.8 mg/dL Normal 8.5-10.1 [facility] Comment on above: Performed By: #### L IPID, ALT, BMP ####[facility] [id number] [address]Dr. Abdulaziz Wallis Chloride [Moles/Vol] 106 mmol/L 98-107 mmol/L [facility] Comment on above: Performed By: #### L IPID, ALT, BMP ####[facility] [id number] [id number] Wallis CO2 [Moles/Vol] 27.3 mmol/L Normal 21.0-32.0 [facility] Comment on above: Performed By: #### L IPID, ALT, BMP ####[facility] [address] [place] [address]Dr. Abdulaziz Wallis Creatinine [Mass/Vol] 1.02 mg/dL Normal 0.70-1.30 [facility] Comment on above: Performed By: #### L IPID, ALT, BMP ####[facility] [address] [place] [address]Dr. Abdulaziz Wallis EGFR-AF SCOTTISH >60 Normal >=60 [facility] Comment on above: Performed By: #### L IPID, ALT, BMP ####[facility] [address] [place] [address]Dr. Abdulaziz Wallis EGFR-NON AF SCOTTISH >60 Normal >=60 [facility] Comment on above: Performed By: #### L IPID, ALT, BMP ####[facility] [address] [place] [address]Dr. Abdulaziz Wallis Glucose [Mass/Vol] 96 mg/dL Normal 74-106 [facility] Comment on above: Performed By: #### L IPID, ALT, BMP ####[facility] [address] [place] [address]Dr. Abdulaziz Wallis Potassium [Moles/Vol] 4.2 mmol/L Normal 3.5-5.1 [facility] Comment on above: Performed By: #### L IPID, ALT, BMP ####[facility] [address] [place] [address]Dr. Abdulaziz Wallis Sodium [Moles/Vol] 144 mmol/L Normal 136-145 [facility] Comment on above: Performed By: #### L IPID, ALT, BMP ####[facility] [address] [place] [address]Dr. Abdulaziz Wallis Urea nitrogen [Mass/Vol] 15.0 mg/dL Normal 7.0-18.0 [facility] Comment on above: Performed By: #### L IPID, ALT, BMP ####[facility] [address] [place] [address]Dr. Abdulaziz Wallis Urea nitrogen/Creatinine [Mass ratio] 14.7 mg/mg [facility] Comment on above: Performed By: #### L IPID, ALT, BMP ####[facility] [address] [place] [id number] Wallis SGPTon 12-17-2022 ALT [Catalytic activity/Vol] 30 U/L 16-63 U/L [facility] Comment on above: Performed By: #### L IPID, ALT, BMP #### [facility] [address] [place], [place] [address] Dr. Abdulaziz Wallis CBC AUTO DIFFon 06-30-2022 BASO # 0.1 103/ul Normal 0.0-0.1 [facility] Comment on above: Performed By: #### C BC ####[facility] [address] [place] [address]DrAliyah Wallis Basophils/100 WBC (Bld) 1.2 % Normal 0.2-2.0 [facility] Comment on above: Performed By: #### C BC ####[facility] [address] [place] [address]DrAliyah Wallis EO # 0.3 103/ul Normal 0.0-0.7 [facility] Comment on above: Performed By: #### C BC ####[facility] [address] [place] [address]DrAliyah Wallis Eosinophils/100 WBC (Bld) 4.7 % Normal 0.9-7.0 [facility] Comment on above: Performed By: #### C BC ####[facility] [address] [place] [address]DrAliyah Wallis Erythrocyte distribution width (RBC) [Ratio] 13.1 % Normal 11.0-15.0 [facility] Comment on above: Performed By: #### C BC ####[facility] [address] [place] [address]DrAliyah Wallis Hematocrit (Bld) [Volume fraction] 38.2 % Critically low 42.0-54.0 [facility] Comment on above: Performed By: #### C BC ####[facility] [address] [place], [place] [address]DrAliyah Wallis Hemoglobin (Bld) [Mass/Vol] 12.8 g/dL Critically low 14.0-18.0 [facility] Comment on above: Performed By: #### C BC ####[facility] [address] [place] [address]DrAliyah Wallis IG # 0.04 10e3/ul Critically high 0.00-0.03 [facility] Comment on above: Performed By: #### C BC ####[facility] [address] [place] [address]DrAliyah Wallis IG % 0.7 % Critically high 0.0-0.5 [facility] Comment on above: Performed By: #### C BC ####[facility] [address] [place], [place] [address]DrAliyah Wallis LYMPH # 1.8 103/ul Normal 1.2-3.8 [facility] Comment on above: Performed By: #### C BC ####[facility] [address] [place], [place] [address]DrAliyah Wallis Lymphocytes/100 WBC (Bld) 29.8 % Normal 20.5-60.0 [facility] Comment on above: Performed By: #### C BC ####[facility] [address] [place] [address]DrAliyah Wallis MANUAL DIFF REQ NO Normal [facility] Comment on above: Performed By: #### C BC ####[facility] [address] [place] [address]DrAliyah Wallis MCH (RBC) [Entitic mass] 32.7 pg Normal 25.9-34.0 [facility] Comment on above: Performed By: #### C BC ####[facility] [address] [place] [address]DrAliyah Wallis MCHC (RBC) [Mass/Vol] 33.5 g/dL Normal 29.9-35.2 [facility] Comment on above: Performed By: #### C BC ####[facility] Ghpqcguoxs[address] [place] [address]DrAliyah Wallis MCV (RBC) [Entitic vol] 97.7 fL Critically high 80.0-94.0 [facility] Comment on above: Performed By: #### C BC ####[facility] [address] [place] [address]DrAliyah Abdulaziz Wallis MONO # 0.8 103/ul Normal 0.3-0.8 [facility] Comment on above: Performed By: #### C BC ####[facility] [address] [place] [address]DrAliyah Abdulaziz Bimal Monocytes/100 WBC (Bld) 12.9 % Critically high 1.7-12.0 [facility] Comment on above: Performed By: #### C BC ####[facility] [address] [place], [place] [address]Dr. Abdulaziz Wallis NEUT # 3.0 103/ul Normal 1.4-6.5 [facility] Comment on above: Performed By: #### C BC ####[facility] [address] [place], [place] [address]Dr. Deechris Wallis Neutrophils/100 WBC (Bld) 50.7 % Normal 43.0-75.0 [facility] Comment on above: Performed By: #### C BC ####[facility] [address] [place], [place] [address]DrAliyah Abdulaziz Bimal Platelet mean volume (Bld) [Entitic vol] 10.9 fL Normal 9.5-13.5 [facility] Comment on above: Performed By: #### C BC ####[facility] [address] [place] [address]Dr. Abdulaziz Bimal PLT 145 103/ul Critically low 150-450 [facility] Comment on above: Performed By: #### C BC ####[facility] [address] [place] [id number] Wallis RBC 3.91 106/ul Critically low 4.70-6.10 [facility] Comment on above: Performed By: #### C BC ####[facility] [address] [place], [place] [id number] Wallis WBC 5.9 103/ul Normal 4.0-11.0 [facility] Comment on above: Performed By: #### C BC ####[facility] [address] [place] [id number]. Abdulaziz Wallis VITAMIN B12on 06-30-2022 Cobalamin (Vitamin B12) [Mass/Vol] 793.0 pg/mL Normal 193.0-986.0 [facility] Comment on above: Performed By: #### V ITB12 ####[facility] [address] [place] [address]Dr. Abdulaziz Wallis CBC AUTO DIFFon 03-30-2022 BASO # 0.1 103/ul Normal 0.0-0.1 [facility] Comment on above: Performed By: #### C BC #### [facility] [address] [place] [address] [address] Abdulaziz Wallis Basophils/100 WBC (Bld) 1.0 % Normal 0.2-2.0 [facility] Comment on above: Performed By: #### C BC #### [facility] [address] [place] [address] [address] Abdulaziz Wallis EO # 0.3 103/ul Normal 0.0-0.7 [facility] Comment on above: Performed By: #### C BC #### [facility] [address] [place] [address] [address] Abdulaziz Wallis Eosinophils/100 WBC (Bld) 3.5 % Normal 0.9-7.0 [facility] Comment on above: Performed By: #### C BC #### [facility] [address] [place] [address] [address] Abdulaziz Wallis Erythrocyte distribution width (RBC) [Ratio] 12.5 % Normal 11.0-15.0 [facility] Comment on above: Performed By: #### C BC #### [facility] [address] [place] [address] Dr. Abdulaziz Wallis Hematocrit (Bld) [Volume fraction] 39.6 % Critically low 42.0-54.0 [facility] Comment on above: Performed By: #### C BC #### [facility] [address] [place] [address] Dr. Abdulaziz Wallis Hemoglobin (Bld) [Mass/Vol] 13.8 g/dL Critically low 14.0-18.0 [facility] Comment on above: Performed By: #### C BC #### [facility] [address] [place] [address] Dr. Abdulaziz Wallis IG # 0.03 10e3/ul Normal 0.00-0.03 [facility] Comment on above: Performed By: #### C BC #### [facility] [address] [place] [address] Dr. Abdulaziz Wallis IG % 0.4 % Normal 0.0-0.5 [facility] Comment on above: Performed By: #### C BC #### [facility] [address] [place] [address] Dr. Abdulaziz Wallis LYMPH # 2.1 103/ul Normal 1.2-3.8 [facility] Comment on above: Performed By: #### C BC #### [facility] [address] [place] [address] Dr. Abdulaziz Wallis Lymphocytes/100 WBC (Bld) 26.1 % Normal 20.5-60.0 [facility] Comment on above: Performed By: #### C BC #### [facility] [address] [place] [address] Dr. Abdulaziz Wallis MANUAL DIFF REQ NO Normal [facility] Comment on above: Performed By: #### C BC #### [facility] [address] [place] [address] Dr. Abdulaziz Wallis MCH (RBC) [Entitic mass] 33.4 pg Normal 25.9-34.0 [facility] Comment on above: Performed By: #### C BC #### [facility] [address] [place] [address] Dr. Abdulaziz Wallis MCHC (RBC) [Mass/Vol] 34.8 g/dL Normal 29.9-35.2 [facility] Comment on above: Performed By: #### C BC #### [facility] [address] [place] [address] Dr. Abdulaziz Wallis MCV (RBC) [Entitic vol] 95.9 fL Critically high 80.0-94.0 [facility] Comment on above: Performed By: #### C BC #### [facility] [address] [place] [address] [address] Abdulaziz Wallis MONO # 0.9 103/ul Critically high 0.3-0.8 [facility] Comment on above: Performed By: #### C BC #### [facility] [address] [place] [address] Dr. Abdulaziz Wallis Monocytes/100 WBC (Bld) 10.9 % Normal 1.7-12.0 [facility] Comment on above: Performed By: #### C BC #### [facility] [address] [place] [address] Dr. Abdulaziz Wallis NEUT # 4.7 103/ul Normal 1.4-6.5 [facility] Comment on above: Performed By: #### C BC #### [facility] [address] [place] [address] Dr. Abdulaziz Wallis Neutrophils/100 WBC (Bld) 58.1 % Normal 43.0-75.0 [facility] Comment on above: Performed By: #### C BC #### [facility] [address] [place] [address] Dr. Abdulaziz Wallis Platelet mean volume (Bld) [Entitic vol] 10.6 fL Normal 9.5-13.5 [facility] Comment on above: Performed By: #### C BC #### [facility] [address] [place] [address] Dr. Abdulaziz Wallis PLT 169 103/ul Normal 150-450 [facility] Comment on above: Performed By: #### C BC #### [facility] [address] [place] [address] Dr. Abdulaziz Wallis RBC 4.13 106/ul Critically low 4.70-6.10 [facility] Comment on above: Performed By: #### C BC #### [facility] [address] [place] [address] Dr. Abdulaziz Wallis WBC 8.1 103/ul Normal 4.0-11.0 [facility] Comment on above: Performed By: #### C BC #### [facility] [address] [place] [address] Dr. Abdulaziz Wallis CBC AUTO DIFFon 12-23-2021 BASO # 0.1 103/ul Normal 0.0-0.1 [facility] Comment on above: Performed By: #### C BC #### [facility] [address] [place] [address] Dr. Abdulaziz Wallis Basophils/100 WBC (Bld) 1.2 % Normal 0.2-2.0 [facility] Comment on above: Performed By: #### C BC #### [facility] [address] [place] [address] Dr. Abdulaziz Wallis EO # 0.2 103/ul Normal 0.0-0.7 [facility] Comment on above: Performed By: #### C BC #### [facility] [address] [place] [address] Dr. Abdulaziz Wallis Eosinophils/100 WBC (Bld) 3.4 % Normal 0.9-7.0 [facility] Comment on above: Performed By: #### C BC #### [facility] [address] [place] [address] Dr. Abdulaziz Wallis Erythrocyte distribution width (RBC) [Ratio] 13.2 % Normal 11.0-15.0 [facility] Comment on above: Performed By: #### C BC #### [facility] [address] [place] [address] Dr. Abdulaziz Wallis Hematocrit (Bld) [Volume fraction] 41.3 % Critically low 42.0-54.0 [facility] Comment on above: Performed By: #### C BC #### [facility] [address] [place] [address] Dr. Abdulaziz Wallis Hemoglobin (Bld) [Mass/Vol] 13.9 g/dL Critically low 14.0-18.0 [facility] Comment on above: Performed By: #### C BC #### [facility] [address] [place] [address] Dr. Abdulaziz Wallis IG # 0.02 10e3/ul Normal 0.00-0.03 [facility] Comment on above: Performed By: #### C BC #### [facility] [address] [place] [address] Dr. Abdulaziz Wallis IG % 0.4 % Normal 0.0-0.5 [facility] Comment on above: Performed By: #### C BC #### [facility] [address] [place] [address] Dr. Abdulaziz Wallis LYMPH # 1.3 103/ul Normal 1.2-3.8 [facility] Comment on above: Performed By: #### C BC #### [facility] [address] [place] [address] Dr. Abdulaziz Wallis Lymphocytes/100 WBC (Bld) 23.8 % Normal 20.5-60.0 [facility] Comment on above: Performed By: #### C BC #### [facility] [address] [place] [address] Dr. Abdulaziz Wallis MANUAL DIFF REQ NO Normal [facility] Comment on above: Performed By: #### C BC #### [facility] [address] [place] [address] Dr. Abdulaziz Wallis MCH (RBC) [Entitic mass] 33.3 pg Normal 25.9-34.0 [facility] Comment on above: Performed By: #### C BC #### [facility] [address] [place] [address] Dr. Abdulaziz Wallis MCHC (RBC) [Mass/Vol] 33.7 g/dL Normal 29.9-35.2 [facility] Comment on above: Performed By: #### C BC #### [facility] [address] [place] [address] Dr. Abdulaziz Wallis MCV (RBC) [Entitic vol] 99.0 fL Critically high 80.0-94.0 [facility] Comment on above: Performed By: #### C BC #### [facility] [address] [place] [address] Dr. Abdulaziz Wallis MONO # 0.7 103/ul Normal 0.3-0.8 [facility] Comment on above: Performed By: #### C BC #### [facility] [address] [place] [address] [address] Abdulaziz Wallis Monocytes/100 WBC (Bld) 12.2 % Critically high 1.7-12.0 [facility] Comment on above: Performed By: #### C BC #### [facility] [address] [place] [address] [address] Abdulaziz Wallis NEUT # 3.3 103/ul Normal 1.4-6.5 [facility] Comment on above: Performed By: #### C BC #### [facility] [address] [place] [address] [address] Abdulaziz Wallis Neutrophils/100 WBC (Bld) 59.0 % Normal 43.0-75.0 [facility] Comment on above: Performed By: #### C BC #### [facility] [address] [place] [address] Dr. Abdulaziz Wallis Platelet mean volume (Bld) [Entitic vol] 10.8 fL Normal 9.5-13.5 [facility] Comment on above: Performed By: #### C BC #### [facility] [address] [place] [address] Dr. Abdulaziz Wallis PLT 154 103/ul Normal 150-450 [facility] Comment on above: Performed By: #### C BC #### [facility] [address] [place] [address] Dr. Abdulaziz Wallis RBC 4.17 106/ul Critically low 4.70-6.10 [facility] Comment on above: Performed By: #### C BC #### [facility] [address] [place] [address] [address] Abdulaziz Wallis WBC 5.6 103/ul Normal 4.0-11.0 [facility] Comment on above: Performed By: #### C BC #### [facility] [address] [place] [address] Dr. Abdulaziz Wallis LIPID PROFILEon 12-23-2021 CHOL-HDL RATIO NORM SEE BELOW Normal [facility] Comment on above: Result Comment: 3.3 - 4.4 LOW RISK 4.4 - 7.1 AVERAGE RISK 7.1 - 11.0 MODERATE RISK >11.0 HIGH RISK Performed By: #### L IPID, BMP, ALT #### [facility] [address] [place] [address] [address] Abdulaziz Wallis Cholesterol [Mass/Vol] 117 mg/dL Normal <=200 [facility] Comment on above: Performed By: #### L IPID, BMP, ALT #### [facility] [address] [place] [address] [address] Abdulaziz Wallis Cholesterol in HDL [Mass/Vol] 47 mg/dL Normal 40-60 [facility] Comment on above: Performed By: #### L IPID, BMP, ALT #### [facility] [address] [place] [address] [address] Abdulaziz Wallis Cholesterol in LDL [Mass/Vol] 45.0 mg/dL Normal [facility] Comment on above: Performed By: #### L IPID, BMP, ALT #### [facility] [address] [place] [address] Dr. Abdulaziz Wallis Cholesterol.total/C holesterol in HDL [Mass ratio] 2.5 {ratio} Normal [facility] Comment on above: Performed By: #### L IPID, BMP, ALT #### [facility] [address] [place] [address] Dr. Abdulaziz Wallis HDL NORMAL > or = 60 mg/dl - LO W CARDIOVASCULAR RISK <40 mg/dl - HIGH CARDIOVASCULAR RISK Normal [facility] Comment on above: Performed By: #### L IPID, BMP, ALT #### [facility] [address] [place] [address] Dr. Abdulaziz Wallis LDL CALC NORMAL SEE BELOW Normal [facility] Comment on above: Result Comment: <100 mg/dl OPTIMAL 100 - 129 mg/dl NEAR OR ABOVE OPTIMAL 130 - 159 mg/dl BORDERLINE HIGH 160 - 189 mg/dl HIGH >190 mg/dl VERY HIGH Performed By: #### L IPID, BMP, ALT #### [facility] [address] [place] [address] [address] Abdulaziz Wallis Triglyceride [Mass/Vol] 125 mg/dL Normal <=150 [facility] Comment on above: Performed By: #### L IPID, BMP, ALT #### [facility] [address] [place] [address] Dr. Abdulaziz Wallis VLDL CALC 25.0 mg/dL Normal [facility] Comment on above: Performed By: #### L IPID, BMP, ALT #### [facility] [address] [place] [address] Dr. Abdulaziz Wallis PROF CHEM 8 (BAS METB)on Anion gap [Moles/Vol] 11.7 mmol/L Normal [facility] Comment on above: Performed By: #### L IPID, BMP, ALT #### [facility] [address] [place] [address] Dr. Abdulaziz Wallis Calcium [Mass/Vol] 8.9 mg/dL Normal 8.5-10.1 [facility] Comment on above: Performed By: #### L IPID, BMP, ALT #### [facility] [address] [place] [address] Dr. Abdulaziz Wallis Chloride [Moles/Vol] 107 mmol/L Normal 98-107 [facility] Comment on above: Performed By: #### L IPID, BMP, ALT #### [facility] [address] [place] [address] Dr. Abdulaziz Wallis CO2 [Moles/Vol] 29.4 mmol/L Normal 22.0-30.0 [facility] Comment on above: Performed By: #### L IPID, BMP, ALT #### [facility] [address] [place] [address] Dr. Abdulaziz Wallis Creatinine [Mass/Vol] 0.91 mg/dL Normal 0.66-1.25 [facility] Comment on above: Performed By: #### L IPID, BMP, ALT #### [facility] [address] [place] [address] Dr. Abdulaziz Wallis EGFR-AF SCOTTISH >60 Normal >=60 [facility] Comment on above: Performed By: #### L IPID, BMP, ALT #### [facility] [address] [place] [address] [address] Abdulaziz Wallis EGFR-NON AF SCOTTISH >60 Normal >=60 [facility] Comment on above: Performed By: #### L IPID, BMP, ALT #### [facility] [address] [place] [address] [address] Abdulaziz Wallis Glucose [Mass/Vol] 102 mg/dL Normal 74-106 [facility] Comment on above: Performed By: #### L IPID, BMP, ALT #### [facility] [address] [place] [address] [address] Abdulaziz Wallis Potassium [Moles/Vol] 4.1 mmol/L Normal 3.4-5.0 [facility] Comment on above: Performed By: #### L IPID, BMP, ALT #### [facility] [address] [place] [address] Dr. Abdulaziz Wallis Sodium [Moles/Vol] 144 mmol/L Normal 137-145 [facility] Comment on above: Performed By: #### L IPID, BMP, ALT #### [facility] [address] [place] [address] [address] Abdulaziz Wallis Urea nitrogen [Mass/Vol] 14.0 mg/dL Normal 7.0-18.0 [facility] Comment on above: Performed By: #### L IPID, BMP, ALT #### [facility] [address] [place] [address] [address] Abdulaziz Wallis Urea nitrogen/Creatinine [Mass ratio] 15.4 mg/mg Normal [facility] Comment on above: Performed By: #### L IPID, BMP, ALT #### [facility] [address] [place] [address] Dr. Abdulaziz Wallis [facility] 12-23-2021 ALT [Catalytic activity/Vol] 33 U/L Normal 16-63 [facility] Comment on above: Performed By: #### L IPID, BMP, ALT #### [facility] [address] [place] [address] [address] Abdulaziz Wallis Vital Signs Date Time Vital Sign Value Performing Clinician Facility 03-30-2024 11:45-0400 Body height 182.88 cm [facility] 03-30-2024 11:45-0400 Body mass index (BMI) [Ratio] 20.7 kg/m2 [facility] 03-30-2024 11:45-0400 Body weight 69.51 kg [facility] 03-30-2024 11:45-0400 Diastolic blood pressure 64 mm[Hg] [facility] 03-30-2024 11:45-0400 Heart rate 53 /min [facility] 03-30-2024 11:45-0400 Respiratory rate 12 /min [facility] 03-30-2024 11:45-0400 Systolic blood pressure 156 mm[Hg] [facility] 12-30-2023 11:07-0400 Body height 182.88 cm [facility] 12-30-2023 11:07-0400 Body mass index (BMI) [Ratio] 21.7 kg/m2 [facility] 12-30-2023 11:07-0400 Body weight 72.8 kg [facility] 12-30-2023 11:07-0400 Diastolic blood pressure 60 mm[Hg] [facility] 12-30-2023 11:07-0400 Heart rate 34 /min [facility] 12-30-2023 11:07-0400 Respiratory rate 12 /min [facility] 12-30-2023 11:07-0400 Systolic blood pressure 126 mm[Hg] [facility] 07-20-2023 10:30-0500 Body height 182.88 cm Grzegorz Ball Other [facility] [employer] Other 07-20-2023 10:30-0500 Body mass index (BMI) [Ratio] 21.97 kg/m2 Grzegorz Ball Other [facility] [employer] Other 07-20-2023 10:30-0500 Body weight 73.48 kg Grzegorz Ball Other [facility] [employer] Other 07-20-2023 10:30-0500 Diastolic blood pressure 70 mm[Hg] Grzegorz Ball Other [employer] Other 07-20-2023 10:30-0500 Respiratory rate 12 /min Grzegorz Ball Other [employer] Other 07-20-2023 10:30-0500 Systolic blood pressure 116 mm[Hg] Grzegorz Ball Other [employer] Other 12-15-2022 11:00-0400 Body height 182.88 cm Grzegorz Ball Other [employer] Other 12-15-2022 11:00-0400 Body mass index (BMI) [Ratio] 22.08 kg/m2 Grzegorz Ball Other [employer] Other 12-15-2022 11:00-0400 Body weight 73.85 kg Grzegorz Ball Other [employer] Other 12-15-2022 11:00-0400 Diastolic blood pressure 55 mm[Hg] Grzegorz Ball Other [employer] Other 12-15-2022 11:00-0400 Respiratory rate 12 /min Grzegorz Ball Other [employer] Other 12-15-2022 11:00-0400 Systolic blood pressure 160 mm[Hg] Grzegorz Ball Other [employer] Other Encounters Encounter Date Encounter Type Care Provider Facility Start: 04-06-2024 End: 04-06-2024 ambulatory [facility] Start: 03-30-2024 End: 03-30-2024 ambulatory [facility] Work Phone: Start: 03-30-2024 End: 03-30-2024 Patient encounter procedure [facility] Work Phone: Start: 03-23-2024 Non-patient / Non-visit [facility] Work Phone: Start: 03-20-2024 Evaluation and management of inpatient DON [facility] Start: 03-20-2024 Evaluation and management of inpatient TRICIA DOWNS [facility] Start: 03-19-2024 Evaluation and management of inpatient TRICIA DWONS [facility] Start: 03-16-2024 End: 03-21-2024 Evaluation and management of inpatient DON [facility] Start: 03-16-2024 Non-patient / Non-visit [facility] [employer] Work Phone: Start: 02-23-2024 End: 02-23-2024 ambulatory [facility] Start: 12-30-2023 End: 12-30-2023 ambulatory [facility] Work Phone: Start: 12-30-2023 End: 12-30-2023 Patient encounter procedure [facility] Work Phone: Start: 07-20-2023 End: 07-20-2023 ambulatory Grzegorz Bui Other [employer] Other Start: 07-20-2023 Office outpatient vi sit 25 minutes Grzegorz Hao [facility] Start: 05-23-2023 End: 05-23-2023 ambulatory Grzegorz Ball Other [employer] Other Start: 05-23-2023 Nursing evaluation o f patient and report Grzegorz Ball [facility] Start: 04-04-2023 End: 04-04-2023 ambulatory Grzegorz Ball Other [employer] Other Start: 04-04-2023 Telephone encounter Grzegorz Bui [facility] Start: 12-22-2022 End: 12-22-2022 ambulatory Grzegorz Ball Other [employer] Other Start: 12-22-2022 Telephone encounter Grzegorz Bui [facility] Start: 12-19-2022 End: 12-19-2022 ambulatory Grzegorz Bui Other [employer] Other Start: 12-19-2022 Telephone encounter Grzegorz Bui JERI Bui [facility] Start: 12-17-2022 End: [address] GRZEGORZ BUI Facility:[facility] Start: 12-15-2022 End: 12-15-2022 ambulatory Grzegorz Bui Other [employer] Other Start: 12-15-2022 Patient encounter procedure Grzegorz Bui [facility] Start: 06-30-2022 End: 07-01-[address] GRZEGORZ BUI Facility:[facility] Start: 05-28-2022 End: 05-28-2022 ambulatory JAMA Ly Facility:[facility] Start: 03-30-2022 End: 03-31-[address] GRZEGORZ BUI Facility:[facility] Start: 12-23-2021 Adult health examination Grzegorz Bui Other [employer] Other Start: 12-23-2021 End: 12-24-[address] GRZEGORZ BUI Facility:[facility] Procedures Date Procedure Procedure Detail Performing Clinician Start: 12-17-2022 End: 12-17-[address] GRZEGORZ BUI Comment on above: Performed By: #### P SASC ####[facility] [id number] [place], [place] [address]RwDr. Abdulaziz Wallis Start: 12-23-2021 Depression screening Enoch Bui Other Start: 12-23-[address] MIGUEL BUI Comment on above: Performed By: #### P SASC #### [facility] [address] [place], [place] [address] Dr. Abdulaziz Wallis Start: 11-21-2015 Screening for malign ant neoplasm of colon Grzegorz Bui Other Start: 10-17-2013 Screening for malign ant neoplasm of prostate Grzegorz Bui Other Screening for malign ant neoplasm of prostate Grzegorz Bui Other Plan of Treatment Date Care Activity Detail Author Comprehensive metabo lic 2000 panel - Serum or Plasma [facility] Immunizations Immunization Date Immunization Notes Care Provider Fa purvi 05-23-2023 influenza, high dose seasonal, preservative-free Grzegorz Bui Other [facility] [employer] Other 05-23-2023 influenza virus vaccine, unspecified formulation [facility] 06-07-2022 influenza virus vaccine, split virus (incl. purified surface antigen) Grzegorz Bui Other [facility] [employer] Other 06-07-2022 influenza virus vaccine, unspecified formulation [facility] 06-07-2022 influenza, high dose seasonal, preservative-free Grzegorz Bui Other [facility] [employer] Other 05-14-2022 COVID-19 Pfizer (bivalent) Grzegorz Bui Other [facility] 05-30-2021 COVID-19 Vaccine Pfi zer - Documentation Purposes Only Grzegorz Bui Other [facility] 05-29-2021 influenza virus vaccine, split virus (incl. purified surface antigen) Grzegorz Bui Other [facility] [employer] Other 05-29-2021 influenza virus vaccine, unspecified formulation [facility] 10-31-2020 COVID-19 Vaccine Pfi zer - Documentation Purposes Only Grzegorz Bui Other [facility] 10-12-2020 COVID-19 Vaccine Pfi zer - Documentation Purposes Only Grzegorz Bui Other [facility] 05-19-2020 influenza virus vaccine, split virus (incl. purified surface antigen) Grzegorz Bui Other [facility] [employer] Other 05-19-2020 influenza virus vaccine, unspecified formulation [facility] 05-18-2018 influenza virus vaccine, split virus (incl. purified surface antigen) Grzegorz Bui Other [facility] [employer] Other 05-18-2018 influenza virus vaccine, unspecified formulation [facility] 06-07-2017 influenza virus vaccine, split virus (incl. purified surface antigen) Grzegorz Bui Other [facility] [employer] Other 06-07-2017 influenza virus vaccine, unspecified formulation [facility] 05-14-2016 influenza virus vaccine, split virus (incl. purified surface antigen) Grzegorz Bui Other [facility] [employer] Other 05-14-2016 influenza virus vaccine, unspecified formulation [facility] 07-09-2015 pneumococcal Conjuga te, unspecified formulation; Translations: [Need for prophylactic vaccination against Streptococcus pneumoniae (pneumococcus)] Grzegorz Bui Other [facility] [employer] Other 07-09-2015 pneumococcal conjuga te vaccine, 13 valent Grzegorz Bui Other [facility] 06-10-2015 influenza virus vaccine, split virus (incl. purified surface antigen) Grzegorz Bui Other [facility] [employer] Other 06-10-2015 influenza virus vaccine, unspecified formulation [facility] 06-03-2014 tetanus and diphther ia toxoids, adsorbed, preservative free, for adult use (5 Lf of tetanus toxoid and 2 Lf of diphtheria toxoid) Grzegorz Hao Other [facility] 06-06-2013 tetanus and diphther ia toxoids, adsorbed, preservative free, for adult use (5 Lf of tetanus toxoid and 2 Lf of diphtheria toxoid) Grzegorz Bui Other [facility] 11-12-2009 pneumococcal polysaccharide vaccine, 23 valent Grzegorz Hao Other [facility] 11-05-2009 pneumococcal polysaccharide vaccine, 23 valent Grzegorz Bui Other [facility] Payers Date Payer Category Payer Medicare [id number] 1961 Medicare [id number] 2.1 [id number] 1961 Unknown [id number] 1945 Unknown [id number] 2.16.84 [id number] 1945 Unknown [id number] 2.16.84 [id number] 1945 Unknown [id number] 2.16.84 [id number] 1943 Unknown [id number] 2.16.84 [id number] 1943 Unknown [id number] 2.16.84 [id number] 1945 Unknown [id number] 2.16.84 [id number] Social History Date Type Detail Facility Sex Assigned At [employer] Other Start: 1945 Sex Assigned At Male F [facility] [place] Clinical Notes 12-15-2022 to 04-06-2024 Note Date & Type Note Facility 04-06-2024 Note No NSVT noted on 30 day event monitor No beta rosibel r/t bradycardia [facility] 04-06-2024 Note Stable without concerning sympto ms [facility] 04-06-2024 Note Heart failure is unc hanged. NYHA Class II. Currently remains euvolemic without exacerbation. Continue lasix 20 mg daily. Continue current treatment regimen. Encouraged daily monitoring of the patient's weight. Continue current medications. As scheduled [facility] 04-06-2024 Note EKG today sinus zain y HR 51 bpm, remains asymptomatic Event monitor reviewed with pt and as per Dr Sommers's recommendations - no PPM at this time unless he becomes symptomatic [facility] 04-06-2024 Note [facility] CARDIOLOGY PROGR ESS NOTE HPI: Jeremiah Viera is a 78 y.o. male here for hospital F/U HPI 78 yo male presents today for routine F/U for known CAD s/p CABG, HFpEF, bradycardia, HTN, HPL Currently pt states he feels well. Denied any limiting activity symptoms. Denied chest pain, SOB, Orthopnea, palpitations, lightheadedness/dizziness or syncope. States rt groin site is healed without pain, N/T, drainage. Denied fever, chills, N/V/D or bleeding tendencies. Discharge Summary Final Discharge Diagnosis: Bradycardia Admission Diagnosis: Bradycardia [R00.1] Hospital course: 78 y.o. male who came from home with past medical history of CAD s/p CABG, HTN, HLD, chronic diastolic CHF, mitral and aortic valve regurgitation, NSVT, bradycardia with event monitor in place presents to [facility] as a direct admission from [facility] with bradycardia. Patient reports that he was having low heart rates while in his cardiology office so they prescribed him an event monitor. Patient reports that he was notified on morning that he had a pause overnight but patient is unsure how long the pause was. He reports that he was called again on Tuesday morning that he had had another pause and multiple episodes of bradycardia and he was instructed to go to the nearest hospital for further workup. Patient denies any symptoms during any of these episodes and currently denies chest pain, shortness of breath, nausea, vomiting, dizziness, lightheadedness. Upon arrival to [facility], labs were completed showing WBC 7.9, RBC 4.12, hemoglobin 13.5, hematocrit 39.7, INR 0.99, sodium 142, potassium 3.9, chloride 106, BUN 22, creatinine 1.19, calcium 9.1. CXR was completed showing no acute process. Patient was transferred to [facility] for possible pacemaker implantation. # Asymptomatic bradycardia with pauses: # Positive stress test s/p PCI to RCA this admission: # CAD s/p CABG: - D/C Coreg. - No plan for pacemaker implantation at this time. - Resume aspirin, Plavix, and Lipitor. Hold Coreg due to bradycardia. # Chronic HFpEF: - Resume oral Lasix. # HTN: - Continue nifedipine and lisinopril. # Mitral and Aortic Valve Regurgitation: - Continue follow up with cardiology for monitoring outpatient. Review of Systems Constitutional: Negative. Respiratory: Negative. Cardiovascular: Negative. Neurological: Negative. All other systems reviewed and are negative. Visit Vitals BP 150/72 (BP Location: Left arm, Patient Position: Sitting) Pulse 61 Ht 1.803 m (5' 11 ) Wt 68.9 kg (152 lb) SpO2 97% BMI 21.20 kg/m??? Smoking Status Never BSA 1.86 m??? No Known Allergies Medications: Current Outpatient Medications on File Prior to Visit Medication Sig Dispense Refill aspirin 81 mg chewable tablet Chew 1 tablet every day by oral route. atorvastatin (Lipitor) 40 mg tablet Take 1 tablet (40 mg) by mouth at bedtime. 30 tablet 2 clopidogrel (Plavix) 75 mg tablet Take 1 tablet (75 mg) by mouth in the morning. Do not start before March 22, 2024. 90 tablet 3 furosemide (Lasix) 20 mg tablet Take 1 tablet (20 mg) by mouth in the morning. 90 tablet 3 lisinopril 40 mg tablet Take 1 tablet (40 mg) by mouth in the morning. 90 tablet 3 nitroglycerin (Nitrostat) 0.[address] 0.4 mg under the tongue every 5 (five) minutes if needed. [DISCONTINUED] NIFEdipine XL (Procardia XL) 60 mg 24 hr tablet Take 1 tablet (60 mg) by mouth in the morning. 90 tablet 3 No current facility-administered medications on file prior to visit. Physical Exam: Constitutional: Appearance: Normal appearance. Without apparent distress HENT: Head: Normocephalic and atraumatic. Nose: Nose normal. Mouth/Throat: Mouth: Mucous membranes are moist. Eyes: Extraocular Movements: Extraocular movements intact. Conjunctiva/sclera: Conjunctivae normal. Neck: Vascular: No JVD. Cardiovascular: Rate and Rhythm: bradycardia and regular rhythm. Pulses: Dorsalis pedis pulses are 3 on the right side and 3on the left side. Posterior tibial pulses are 3 on the right side and 3 on the left side. Heart sounds: Normal heart sounds, S1 normal and S2 normal. Pulmonary: Effort: Pulmonary effort is normal. Breath sounds: Normal breath sounds. Abdominal: General: Bowel sounds are normal. Palpations: Abdomen is soft. Musculoskeletal: General: Normal range of motion. Cervical back: Normal range of motion. Right lower leg: No edema. Left lower leg: No edema. Skin: General: Skin is warm and dry. Capillary Refill: Capillary refill takes less than 2 seconds. Neurological: General: No focal deficit present. Mental Status: he is alert and oriented to person, place, and time. Psychiatric: Mood and Affect: Mood normal. Behavior: Behavior normal. Thought Content: Thought content normal. Judgment: Judgment normal. Labs: renal function normal, K+ normal, CBC normal, lipi (more content not included)... [facility] 04-06-2024 Note Coronary artery dise ase is stable s/p recent cardiac cath and PCI to RCA Continue GDMT- ASA, plavix- DAPT for at least 1 year and then may stop plavix. Continue lipitor, lisinopril, no beta rosibel r/t bradycardia continue risk factor modifications- heart healthy diet, regular exercise as tolerated and continue all medications. [facility] 04-06-2024 Note HTN is uncontrolled- 150/72 and pt admits its about that at home Continue lisinopril and increase nifedipine to 90 mg daily Monitor b/p at home and goal b/p is < 130/80 Renal function normal [facility] 03-21-2024 Note Hospital Medicine Discharge Summary Final Discharge Diagnosis: Bradycardia Admission Diagnosis: Bradycardia [R00.1] Hospital course: 78 y.o. male who came from home with past medical history of CAD s/p CABG, HTN, HLD, chronic diastolic CHF, mitral and aortic valve regurgitation, NSVT, bradycardia with event monitor in place presents to [facility] as a direct admission from [facility] with bradycardia. Patient reports that he was having low heart rates while in his cardiology office so they prescribed him an event monitor. Patient reports that he was notified on morning that he had a pause overnight but patient is unsure how long the pause was. He reports that he was called again on Tuesday morning that he had had another pause and multiple episodes of bradycardia and he was instructed to go to the nearest hospital for further workup. Patient denies any symptoms during any of these episodes and currently denies chest pain, shortness of breath, nausea, vomiting, dizziness, lightheadedness. Upon arrival to [facility], labs were completed showing WBC 7.9, RBC 4.12, hemoglobin 13.5, hematocrit 39.7, INR 0.99, sodium 142, potassium 3.9, chloride 106, BUN 22, creatinine 1.19, calcium 9.1. CXR was completed showing no acute process. Patient was transferred to [facility] for possible pacemaker implantation. # Asymptomatic bradycardia with pauses: # Positive stress test s/p PCI to RCA this admission: # CAD s/p CABG: - D/C Coreg. - No plan for pacemaker implantation at this time. - Resume aspirin, Plavix, and Lipitor. Hold Coreg due to bradycardia. # Chronic HFpEF: - Resume oral Lasix. # HTN: - Continue nifedipine and lisinopril. # Mitral and Aortic Valve Regurgitation: - Continue follow up with cardiology for monitoring outpatient. Dear Dr. Hao MD, [facility] is advised to follow up with you within 1-2 weeks. Follow-up with: Cardiology Scheduled appointments: Future Appointments Date Time Provider Department Center 04/06/2024 9:20 AM [facility]01[facility] 1:15 PM [facility] Your medication list START taking these medications Instructions Last Dose Given Next Dose Due atorvastatin 40 mg tablet Commonly known as: Lipitor Take 1 tablet (40 mg) by mouth at bedtime. clopidogrel 75 mg tablet Commonly known as: Plavix Start taking on: March 22, 2024 Take 1 tablet (75 mg) by mouth in the morning. Do not start before March 22, 2024. CONTINUE taking these medications Instructions Last Dose Given Next Dose Due aspirin 81 mg chewable tablet furosemide 20 mg tablet Commonly known as: Lasix Take 1 tablet (20 mg) by mouth in the morning. lisinopril 40 mg tablet Take 1 tablet (40 mg) by mouth in the morning. NIFEdipine XL 60 mg 24 hr tablet Commonly known as: Procardia XL Take 1 tablet (60 mg) by mouth in the morning. nitroglycerin 0.4 mg SL tablet Commonly known as: Nitrostat STOP taking these medications carvedilol 3.125 mg tablet Commonly known as: Coreg pravastatin 40 mg tablet Commonly known as: Pravachol Where to Get Your Medications These medications were sent to [facility]pharm[facility] #[id number] - [place], [place] - [address] [place] [address] AT [address] [place] [id number] atorvastatin 40 mg tablet clopidogrel 75 mg tablet Jeremiah has No Known Allergies. Disposition: Home or Self Care () Discharge Condition: Stable Code Status: Full Code Diagnostic Results Hematology: Results from last 7 days Lab Units 03/21/2435603/20/24 0523 03/17/24 0603/16/24 2323 WBC AUTO 10*3/uL 5.54 5.40 < > 6.38 HEMOGLOBIN g/dL 11.8* 12.8* < > 13.5 HEMATOCRIT % 35.8* 38.3* < > 39.1 MCV fL 96.8 98.0 < > 94.9 PLATELETS AUTO 10*3/uL 136* 135* < > 157 INR -- -- -- 1.04 < > = values in this interval not displayed. Chemistry: Results from last 7 days Lab Units 03/21/2435603/20/24 0523 03/19/24 0537 03/18/248 03/17/2461903/16/24 2323 SODIUM mmol/L 143 143 141 143 144 141 POTASSIUM mmol/L 3.7 3.8 4.0 3.9 3.8 3.7 CHLORIDE mmol/L 110* 109* 111* 109* 109* 109* CO2 mmol/L 24 23 24 25 27 23 BUN mg/dL 27* 33* 33* 23 18 20 CREATININE mg/dL 0.94 1.08 1.00 0.99 0.91 0.92 GLUCOSE mg/dL 83 86 83 90 87 92 MAGNESIUM mg/dL -- -- -- 1.8* 1.8* 1.9 CALCIUM mg/dL 8.8 9.0 9.3 8.6 9.1 9.3 PHOSPHORUS mg/dL -- -- -- -- -- 3.2 Results from last 7 days Lab Units 03/16/24 2323 AST U/L 20 ALT U/L 14 ALK PHOS U/L 63 BILIRUBIN TOTAL mg/dL 0.3 Test Results Pending At Discharge: Diet at the time of discharge: cardiac diet Nutrition Screen Activity: Normal activity as tolerated Objective Blood pressure (!) 125/97, pulse 82, temperature 36.4 ???C (97.5 ???F), temperature source Temporal, resp. rate 22, height 1.803 m (5' 11 ), weight 68 kg (150 lb), SpO2 (!) 84 %. General: Alert and oriented x3. Car (more content not included)... [facility] 03-20-2024 Note Patient: Jeremiah alarcon Procedure Information Date/Time: 03/20/24 1615 Procedure: Coronary angiography Location: [facility] HISTORY FACULTY MEMBER 3 / [facility] (Cath) Providers: Rivera Kovacs MD Clinical information reviewed: Allergies Meds Physical Exam Airway Mallampati: II TM distance: >3 FB Neck ROM: full Cardiovascular Rhythm: regular Rate: normal Dental Pulmonary Breath sounds clear to auscultation Abdominal Abdomen: soft Bowel sounds: normal Anesthesia Plan ASA 3 other (Conscious ) Anesthetic plan and risks discussed with patient. Use of blood products discussed with patient who consented to blood products. Plan discussed with attending. Additional Equipment Requests [facility] 03-20-2024 Note Hospital Medicine Daily Progress Note - 03/20/2024 11:48 AM; Room: [address] [place] [address] Admission: 03/16/2024 10:45 PM; Length of stay: 4 days THE HOSPITALIST TEAM PREFERS TO USE [employer] CHAT FOR COMMUNICATION 7AM-7PM. IF I DO NOT RESPOND WITHIN 15 MINUTES, PLEASE PAGE ME/CALL THROUGH THE [employer] MACHINE OPERATOR. FROM 7PM-7AM, PLEASE PAGE [phone](COVR) Code Status: Full Code Barriers to Discharge: Cath today Expected Discharge Date: Discharge Destination: home Overview Patient is seen for evaluation and management of bradycardia. Subjective Patient denies dizziness, CP, SOB, N/V. HR is at 40s. Physical Exam Visit Vitals BP 136/58 Pulse (!) 41 Temp 35.7 ???C (96.3 ???F) (Temporal) Resp 16 Intake/Output Summary (Last 24 hours) at 03/20/2024 1148 Last data filed at 03/19/2024 2300 Gross per 24 hour Intake 240 ml Output -- Net 240 ml Physical Exam Constitutional: Appearance: Normal appearance. Cardiovascular: Rate and Rhythm: Regular rhythm. Bradycardia present. Pulmonary: Effort: Pulmonary effort is normal. Breath sounds: Normal breath sounds. Abdominal: General: Abdomen is flat. Palpations: Abdomen is soft. Neurological: General: No focal deficit present. Mental Status: He is alert and oriented to person, place, and time. Estimated body mass index is 21.42 kg/m??? as calculated from the following: Height as of this encounter: 1.803 m (5' 11 ). Weight as of this encounter: 69.7 kg (153 lb 9.6 oz). Active Inpatient Problems Principal Problem: Bradycardia Active Problems: Mitral and aortic valve regurgitation CAD (coronary artery disease) Essential hypertension Hyperlipidemia NSVT (nonsustained ventricular tachycardia) ([facility]) Chronic diastolic CHF (congestive heart failure) ([facility]) Assessment and Plan # Asymptomatic bradycardia with pauses, improved: # Positive stress test: - Hold Coreg. - Cath today. - No plan for pacemaker implantation at this time. # CAD s/p CABG: - Resume aspirin and pravastatin. Hold Coreg due to bradycardia. # Chronic HFpEF: - Resume oral Lasix. # HTN: - Continue nifedipine and lisinopril. # Mitral and Aortic Valve Regurgitation: - Continue follow up with cardiology for monitoring outpatient. Wounds: No nursing wound documentation available at this time Nutrition Screen: Malnutrition Attestation: No dietitian assessment is available at this time. VTE Prophylaxis: Lovenox Scheduled Meds aspirin, 81 mg, oral, Daily with breakfast enoxaparin, 40 mg, subcutaneous, q24h ANGELO furosemide, 20 mg, oral, Daily kit prep Tc 99m-sestamibi no.1, 10 millicurie, intravenous, Once in imaging kit prep Tc 99m-sestamibi no.1, 30 millicurie, intravenous, Once in imaging lisinopril, 40 mg, oral, Daily NIFEdipine XL, 60 mg, oral, Daily pravastatin, 40 mg, oral, Nightly sodium chloride, 75 mL/hr, Last Rate: 75 mL/hr (03/20/24 0837) Pertinent Investigations Hematology: Results from last 7 days Lab Units 03/20/24 0523 03/19/24 0600 03/17/24 0620 03/16/24 2323 WBC AUTO 10*3/uL 5.40 6.33 < > 6.38 HEMOGLOBIN g/dL 12.8* 12.9* < > 13.5 HEMATOCRIT % 38.3* 38.1* < > 39.1 MCV fL 98.0 94.3 < > 94.9 PLATELETS AUTO 10*3/uL 135* 145* < > 157 INR -- -- -- 1.04 < > = values in this interval not displayed. Chemistry: Results from last 7 days Lab Units 03/20/24 0523 03/19/24 0537 03/18/24 0448 03/17/24 0620 03/16/24 2323 SODIUM mmol/L 143 141 143 144 141 POTASSIUM mmol/L 3.8 4.0 3.9 3.8 3.7 CHLORIDE mmol/L 109* 111* 109* 109* 109* CO2 mmol/L 23 24 25 27 23 BUN mg/dL 33* 33* 23 18 20 CREATININE mg/dL 1.08 1.00 0.99 0.91 0.92 GLUCOSE mg/dL 86 83 90 87 92 MAGNESIUM mg/dL -- -- 1.8* 1.8* 1.9 CALCIUM mg/dL 9.0 9.3 8.6 9.1 9.3 PHOSPHORUS mg/dL -- -- -- -- 3.2 Results from last 7 days Lab Units 03/16/24 2323 AST U/L 20 ALT U/L 14 ALK PHOS U/L 63 BILIRUBIN TOTAL mg/dL 0.3 Historical Values: (Includes values prior to this admission) Lab Results Component Value Date TSH 0.70 03/18/2024 No results found for: [id number] , IRON , TIBC , C3 , C4 , CLAUDIA , CANCA , ASO , PSA , CEA , CA125 , CA199 , AFP , CA153 Imaging Treadmill Stress Myocardial Perfusion Imaging [facility] Heart Station [address] [id number] [phone] (fax) Treadmill Stress Myocardial Perfusion Imaging- [facility] Name: JEREMIAH VIERA Study Date: 03/19/2024 12:25 PM B/P: / HR: Date of : 1945 Location: [facility] Height: 71 in. Age: 78 year(s) Patient Room: 3120 Weight: 153.9 lb. Gender: Male Patient Status: InPt BSA: 1.89 m2 Indication: bradycardia, sinus pause Examination: Treadmill Stress Myocardial Perfusion Imaging Image Quality: Excellent Patient Consent: Procedure explained to patient, information sheet reviewed Clinical Data Smoking: Non Smoker Hypertension: Yes Dyslipidemia: Yes Prior Heart Failure: Yes N (more content not included)... [facility] 03-20-2024 Note [facility]TP CARDIOLOGY INPAT IENT PROGRESS NOTE Reason for follow up: bradycardia, abnormal stress test 03/19 Subjective HPI: Jeremiah Viera is a 78 y.o. male patient is presenting after being contacted by the telemetry unit regarding sinus pauses detected on the event monitor. Past medical history includes: CAD status post CABG HTN HLD MVR AVR Sinus bradycardia The patient was recently admitted to [facility], where he was found to have episodes of bradycardia. His beta-rosibel (Coreg) was held, and he was discharged with an event monitor and an EP follow-up. The event monitor detected sinus pauses, and he was contacted to present to the ED for further evaluation. In the ED, the patient was bradycardic with a heart rate down to 34. Labs showed magnesium level of 1.9, potassium level of 3.7. EKG showing sinus bradycardia. Since admission patient has remained asymptomatic. EP consulted, Dr. Sommers evaluated patient and recommended treadmill stress test with myocardial perfusion imaging added per Dr. Solomon recommendations. Stress test results returned abnormal on 03/19/24. Patient has agreed to cardiac cath. Dr. Sommers determined patient does not need PPM at this time. Interval: No acute concerns or questions from patient. Remains asymptomatic. He is ambulatory in room, on room air. Denies cp, sob, dizziness or LH. Continues to agree with plan for left heart cath today. Tele: SR/SB, rate 37-75 with a pause > 2 seconds overnight Junctional rhythm for approximately 6 seconds today at 1000 hours. Patient denies symptoms during this rhythm change. Spontaneously returned to sinus darci rhythm. ALLERGIES No Known Allergies CURRENT MEDS aspirin, 81 mg, oral, Daily with breakfast enoxaparin, 40 mg, subcutaneous, q24h ANGELO furosemide, 20 mg, oral, Daily kit prep Tc 99m-sestamibi no.1, 10 millicurie, intravenous, Once in imaging kit prep Tc 99m-sestamibi no.1, 30 millicurie, intravenous, Once in imaging lisinopril, 40 mg, oral, Daily NIFEdipine XL, 60 mg, oral, Daily pravastatin, 40 mg, oral, Nightly sodium chloride, 75 mL/hr PRN medications: acetaminophen, hydrALAZINE, melatonin, ondansetron ODT OR ondansetron, potassium nursing electrolyte replacement placeholder Objective Patient Vitals for the past 24 hrs: BP Temp Temp src Pulse Resp SpO2 Weight 03/20/24 0728 124/58 35.7 ???C (96.3 ???F) Temporal (!) 41 16 97 % -- 03/20/24 0500 -- -- -- -- -- -- 69.7 kg (153 lb 9.6 oz) 03/20/24 0406 124/52 36.6 ???C (97.9 ???F) Temporal (!) 36 12 98 % -- 03/20/24 0009 (!) 122/47 36.6 ???C (97.9 ???F) Temporal (!) 46 18 97 % -- 03/19/24 1943 123/69 36.6 ???C (97.9 ???F) Temporal 57 21 99 % -- 03/19/24 1643 135/86 -- -- -- -- -- -- 03/19/24 1630 135/86 36.6 ???C (97.8 ???F) Temporal 56 20 100 % -- 03/19/24 1115 143/62 36.3 ???C (97.3 ???F) Temporal 81 15 98 % -- BP 124/58 (BP Location: Right arm, Patient Position: Standing) Pulse (!) 41 Temp 35.7 ???C (96.3 ???F) (Temporal) Resp 16 Ht 1.803 m (5' 11 ) Wt 69.7 kg (153 lb 9.6 oz) SpO2 97% BMI 21.42 kg/m??? Wt Readings from Last 3 Encounters: 03/20/24 69.7 kg (153 lb 9.6 oz) 02/23/24 72.6 kg (160 lb) 05/24/22 71.7 kg (158 lb) General: Awake, alert, appropriate mood/affect, NAD Eyes: anicteric sclera. Non-injected conjunctiva. Neck: No elevated JVP. Pulm: Breath sounds clear to ascultation bilaterally with no wheeze, crackles or rhonchi Cards: HRRR, NL S1, S2. No S3 or S4 gallop. Murmur: none Abd: Soft, Nontender, physiologic bowel sounds are present Extr: Lower extremity edema: none. DP pulses present bilaterally Skin: warm, dry, well perfused Neuro: A&Ox3, No gross deficits Lab Results Component Value Date NA 141 03/19/2024 K 4.0 03/19/2024 CL 111 (H) 03/19/2024 ANIONGAP 10 03/19/2024 BUN 33 (H) 03/19/2024 CREATININE 1.00 03/19/2024 CALCIUM 9.3 03/19/2024 MG 1.8 (L) 03/18/2024 PHOS 3.2 03/16/2024 Lab Results Component Value Date BILITOT 0.3 03/16/2024 ALKPHOS 63 03/16/2024 AST 20 03/16/2024 ALT 14 03/16/2024 PROT 6.3 03/16/2024 ALBUMIN 4.3 03/16/2024 No results found for: CHOLESTEROL , CHOLESTEROL TOTAL , TRIGLYCERIDES , HDL , LDL CHOLESTEROL , LDL DIRECT , LDL CALC Lab Results Component Value Date BNP 142 (H) 03/16/2024 Lab Results Component Value Date TSH 0.70 03/18/2024 No results found for: DIGOXIN LVL No results found for: HGBA1C Lab Results Component Value Date WBC 5.40 03/20/2024 RBC 3.91 (L) 03/20/2024 HGB 12.8 (L) 03/20/2024 HCT 38.3 (L) 03/20/2024 MCV 98.0 03/20/2024 MCH 32.7 03/20/2024 MCHC 33.4 03/20/2024 RDW 12.8 03/20/2024 NEUTOPHILPCT 63.6 03/16/2024 LYMPHOPCT 19.1 (L) 03/16/2024 MONOPCT 13.3 (H) 03/16/2024 EOSPCT 2.7 03/16/2024 BASOPCT 0.8 03/16/2024 NEUTROABS 4.06 03/16/2024 LYMPHSABS 1.22 03/16/2024 MONOSABS 0.85 03/16/2024 EOSABS 0.17 03/16/2024 BASOSABS 0.05 03/16/2024 PLT 135 (L) 03/20/2024 NRBC 0.0 03/05 (more content not included)... [facility] 03-19-2024 Note Hospital Medicine Daily Progress Note - 03/19/2024 4:24 PM; Room: [address] [place] [address] Admission: 03/16/2024 10:45 PM; Length of stay: 3 days THE HOSPITALIST TEAM PREFERS TO USE [employer] CHAT FOR COMMUNICATION 7AM-7PM. IF I DO NOT RESPOND WITHIN 15 MINUTES, PLEASE PAGE ME/CALL THROUGH THE [employer] MACHINE OPERATOR. FROM 7PM-7AM, PLEASE PAGE [phone](COVR) Code Status: Full Code Barriers to Discharge: Cath tomorrow Expected Discharge Date: Discharge Destination: home Overview Patient is seen for evaluation and management of bradycardia. Subjective Patient denies dizziness, CP, SOB, N/V. HR is stable at 70-80. Physical Exam Visit Vitals BP 143/62 (BP Location: Right arm, Patient Position: Lying) Pulse 81 Temp 36.3 ???C (97.3 ???F) (Temporal) Resp 15 No intake or output data in the 24 hours ending 03/19/24 1624 Physical Exam Constitutional: Appearance: Normal appearance. Cardiovascular: Rate and Rhythm: Normal rate and regular rhythm. Pulmonary: Effort: Pulmonary effort is normal. Breath sounds: Normal breath sounds. Abdominal: General: Abdomen is flat. Palpations: Abdomen is soft. Neurological: General: No focal deficit present. Mental Status: He is alert and oriented to person, place, and time. Estimated body mass index is 21.56 kg/m??? as calculated from the following: Height as of this encounter: 1.803 m (5' 11 ). Weight as of this encounter: 70.1 kg (154 lb 9.6 oz). Active Inpatient Problems Principal Problem: Bradycardia Active Problems: Mitral and aortic valve regurgitation CAD (coronary artery disease) Essential hypertension Hyperlipidemia NSVT (nonsustained ventricular tachycardia) ([facility]/HCC) Chronic diastolic CHF (congestive heart failure) ([facility]) Assessment and Plan # Asymptomatic bradycardia with pauses, improved: # Positive stress test: - Hold Coreg. - Cath tomorrow. - No plan for pacemaker implantation at this time. # CAD s/p CABG: - Resume aspirin and pravastatin. Hold Coreg due to bradycardia. # Chronic HFpEF: - Resume oral Lasix. # HTN: - Continue nifedipine and lisinopril. # Mitral and Aortic Valve Regurgitation: - Continue follow up with cardiology for monitoring outpatient. Wounds: No nursing wound documentation available at this time Nutrition Screen: Malnutrition Attestation: No dietitian assessment is available at this time. VTE Prophylaxis: Lovenox Scheduled Meds aspirin, 81 mg, oral, Daily with breakfast furosemide, 20 mg, oral, Daily kit prep Tc 99m-sestamibi no.1, 10 millicurie, intravenous, Once in imaging kit prep Tc 99m-sestamibi no.1, 30 millicurie, intravenous, Once in imaging lisinopril, 40 mg, oral, Daily pravastatin, 40 mg, oral, Nightly Pertinent Investigations Hematology: Results from last 7 days Lab Units 03/19/24 0600 03/18/24 0529 03/17/24 0603/16/24 2323 WBC AUTO 10*3/uL 6.33 5.72 < > 6.38 HEMOGLOBIN g/dL 12.9* 12.9* < > 13.5 HEMATOCRIT % 38.1* 37.7* < > 39.1 MCV fL 94.3 94.5 < > 94.9 PLATELETS AUTO 10*3/uL 145* 142* < > 157 INR -- -- -- 1.04 < > = values in this interval not displayed. Chemistry: Results from last 7 days Lab Units 03/19/24 0537 03/18/24 0448 03/17/24 0620 03/16/24 2323 SODIUM mmol/L 141 143 144 141 POTASSIUM mmol/L 4.0 3.9 3.8 3.7 CHLORIDE mmol/L 111* 109* 109* 109* CO2 mmol/L 24 25 27 23 BUN mg/dL 33* 23 18 20 CREATININE mg/dL 1.00 0.99 0.91 0.92 GLUCOSE mg/dL 83 90 87 92 MAGNESIUM mg/dL -- 1.8* 1.8* 1.9 CALCIUM mg/dL 9.3 8.6 9.1 9.3 PHOSPHORUS mg/dL -- -- -- 3.2 Results from last 7 days Lab Units 03/16/24 2323 AST U/L 20 ALT U/L 14 ALK PHOS U/L 63 BILIRUBIN TOTAL mg/dL 0.3 Historical Values: (Includes values prior to this admission) Lab Results Component Value Date TSH 0.70 03/18/2024 No results found for: [id number] , IRON , TIBC , C3 , C4 , CLAUDIA , CANCA , ASO , PSA , CEA , CA125 , CA199 , AFP , CA153 Imaging ECG 12 lead Marked sinus bradycardia Moderate voltage criteria for LVH, may be normal variant ( Sokolow-Rosado , Dillon product ) Abnormal ECG When compared with ECG of 14-FEB-2002 05:18, Vent. rate has decreased BY 51 BPM Criteria for Inferior infarct are no longer Present Non-specific change in ST segment in Lateral T wave inversion no longer evident in Anterolateral leads QT has shortened Confirmed by Cam Sommers ([id number]) on 03/17/2024 11:09:29 AM Discharge Planning Expected Discharge Disposition: Home or Self Care () Signed Don Mc MD Hospital Medicine 03/19/2024 4:24 PM [facility] 03-19-2024 Note PR Electrophysiology Consult Note Reason for visit: Sinus bradycardia HPI: Jeremiah Viera is a 78 y.o. year old with past medical history of CAD s/p CABG, hypertension, hyperlipidemia, MVR and AVR who has been previously noted to have sinus bradycardia. He was evaluated by his primary care doctor who noted bradycardia bradycardia and suggested that he follow-up. Given the concern of the heart rate into the 30s he had presented to the local ED from when he was referred to [facility]. Previously he was admitted to [facility] and imminently of his bradycardia and his beta-rosibel was was held and discharged on event monitor. Event monitor did not reveal sinus pause no symptoms. Patient states that he has been noted to have bradycardia and has never had any syncope or near syncope and no symptoms with the extent of activity that he is involved in The time of my interview patient was noted to have a heart rate in the 70s. event monitor did not reveal the presence of a 3-second pause that was noted nocturnally on 03/10/2024. other than that no other daytime AV block was seen. PMH: Past Medical History: Diagnosis Date Cardiovascular stress test abnormal 04/20/2022 Coronary artery disease GERD (gastroesophageal reflux disease) 04/20/2022 Heart valve disease Hyperlipidemia 04/20/2022 Hypertension Sinus bradycardia 04/20/2022 PSH: Past Surgical History: Procedure Laterality Date CORONARY ARTERY BYPASS GRAFT 09/05/2001 SH: Social Determinants of Health Tobacco Use: Low Risk (02/23/2024) Patient History Smoking Tobacco Use: Never Smokeless Tobacco Use: Never Passive Exposure: Not on file Alcohol Use: Not on file Financial Resource Strain: Low Risk (03/16/2024) Overall Financial Resource Strain (CARDIA) Difficulty of Paying Living Expenses: Not hard at all Food Insecurity: No Food Insecurity (03/16/2024) Hunger Vital Sign Worried About Running Out of Food in the Last Year: Never true Ran Out of Food in the Last Year: Not on file Transportation Needs: No Transportation Needs (03/16/2024) Transportation Lack of Transportation (Medical): No Lack of Transportation (Non-Medical): Not on file Physical Activity: Not on file Stress: Not on file Social Connections: Not on file Intimate Partner Violence: Unknown (03/16/2024) Humiliation, Afraid, Rape, and Kick questionnaire Fear of Current or Ex-Partner: No Emotionally Abused: Not on file Physically Abused: Not on file Sexually Abused: Not on file Depression: Not on file Housing Stability: Low Risk (03/16/2024) Housing Stability Vital Sign Unable to Pay for Housing in the Last Year: Not on file Number of Places Lived in the Last Year: Not on file Unstable Housing in the Last Year: No Utilities: Not At Risk (03/16/2024) [facility] Utilities Threatened with loss of utilities: No Allergies: No Known Allergies Weight: @WEIGHT@ Visit Vitals BP 143/62 (BP Location: Right arm, Patient Position: Lying) Pulse 81 Temp 36.3 ???C (97.3 ???F) (Temporal) Resp 15 Ht 1.803 m (5' 11 ) Wt 70.1 kg (154 lb 9.6 oz) SpO2 98% BMI 21.56 kg/m??? Smoking Status Never BSA 1.87 m??? Meds: No current facility-administered medications on file prior to encounter. Current Outpatient Medications on File Prior to Encounter Medication Sig Dispense Refill aspirin 81 mg chewable tablet Chew 1 tablet every day by oral route. carvedilol (Coreg) 3.125 mg tablet Take 1 tablet (3.125 mg) by mouth with breakfast and with evening meal. 180 tablet 3 furosemide (Lasix) 20 mg tablet Take 1 tablet (20 mg) by mouth in the morning. 90 tablet 3 lisinopril 40 mg tablet Take 1 tablet (40 mg) by mouth in the morning. 90 tablet 3 NIFEdipine XL (Procardia XL) 60 mg 24 hr tablet Take 1 tablet (60 mg) by mouth in the morning. 90 tablet 3 nitroglycerin (Nitrostat) 0.[address] 0.4 mg under the tongue every 5 (five) minutes if needed. pravastatin (Pravachol) 40 mg tablet TAKE 1 TABLET BY MOUTH AT BEDTIME 90 tablet 3 ROS: Cardio Basic Cardiovascular Symptoms: no lightheadedness, no leg edema, no syncope, no orthopnea, no PND, no claudication, Constitutional Constitutional: no fever, no night sweats, no significant weight gain, no significant weight loss, no exercise intolerance Eyes Eyes: no dry eyes, no irritation, no vision change ENMT Ears: no difficulty hearing, no ear pain Nose: no frequent nosebleeds, Mouth/Throat: no sore throat, no bleeding gums, no snoring, no dry mouth, no mouth ulcers, no oral abnormalities, no teeth problems Respiratory Respiratory: no cough, no wheezing, no coughing up blood, no sleep apnea Musculoskeletal Musculoskeletal: no muscle aches, no muscle weakness, joint pain+, no back pain, no swelling in the extremities Integumentary Skin no rash, no ulcer, no varicosities, no discoloration, no pruritus Neurologic Neurologic: no loss of consciousness, no weakness, no numbness, no seizures, no diz (more content not included)... [facility] 03-19-2024 Note [facility]TP CARDIOLOGY INPAT IENT PROGRESS NOTE Reason for follow up: bradycardia Subjective HPI: Jeremiah Viera is a 78 y.o. male patient is presenting after being contacted by the telemetry unit regarding sinus pauses detected on the event monitor. Past medical history includes: CAD status post CABG HTN HLD MVR AVR Sinus bradycardia The patient was recently admitted to [facility], where he was found to have episodes of bradycardia. His beta-rosibel (Coreg) was held, and he was discharged with an event monitor and an EP follow-up. The event monitor detected sinus pauses, and he was contacted to present to the ED for further evaluation. In the ED, the patient was bradycardic with a heart rate down to 34. Labs showed magnesium level of 1.9, potassium level of 3.7. EKG showing sinus bradycardia. Interval: Patient remains asymptomatic. Denies syncope, near syncope, chest pain, sob, dizziness/LH. Tele: sinus rhythm 1st degree block, rate 32-75 ALLERGIES No Known Allergies CURRENT MEDS aspirin, 81 mg, oral, Daily with breakfast furosemide, 20 mg, oral, Daily lisinopril, 40 mg, oral, Daily pravastatin, 40 mg, oral, Nightly PRN medications: acetaminophen, hydrALAZINE, melatonin, ondansetron ODT OR ondansetron, potassium nursing electrolyte replacement placeholder Objective Patient Vitals for the past 24 hrs: BP Temp Temp src Pulse Resp SpO2 Weight 03/19/24 0500 (!) 150/35 36.3 ???C (97.3 ???F) -- -- -- -- 70.1 kg (154 lb 9.6 oz) 03/19/24 0000 (!) 112/45 36.2 ???C (97.2 ???F) -- 67 21 100 % -- 03/18/24 2155 (!) 103/37 -- -- (!) 40 18 99 % -- 03/18/24 2113 (!) 180/45 -- -- (!) 34 20 100 % -- 03/18/24 2110 (!) 181/41 -- -- (!) 46 20 -- -- 03/18/24 1700 (!) 153/37 36.8 ???C (98.2 ???F) Temporal (!) 38 14 100 % -- 03/18/24 1315 (!) 171/46 -- -- (!) 40 13 90 % -- 03/18/24 1314 178/79 36.8 ???C (98.2 ???F) Temporal (!) 44 16 96 % -- 03/18/24 0916 135/61 36.4 ???C (97.5 ???F) Temporal (!) 48 23 98 % -- 03/18/24 0910 (!) 130/32 -- -- -- -- -- -- BP (!) 150/35 (Patient Position: Standing) Pulse 67 Temp 36.3 ???C (97.3 ???F) Resp 21 Ht 1.803 m (5' 11 ) Wt 70.1 kg (154 lb 9.6 oz) SpO2 100% BMI 21.56 kg/m??? Wt Readings from Last 3 Encounters: 03/19/24 70.1 kg (154 lb 9.6 oz) 02/23/24 72.6 kg (160 lb) 05/24/22 71.7 kg (158 lb) General: Awake, alert, appropriate mood/affect, NAD Eyes: anicteric sclera. Non-injected conjunctiva. Neck: No elevated JVP. Pulm: Breath sounds clear to ascultation bilaterally with no wheeze, crackles or rhonchi Cards: HRRR, NL S1, S2. No S3 or S4 gallop. Murmur: none Abd: Soft, Nontender, physiologic bowel sounds are present Extr: Lower extremity edema: none. DP pulses present bilaterally Skin: warm, dry, well perfused Neuro: A&Ox3, No gross deficits Lab Results Component Value Date NA 141 03/19/2024 K 4.0 03/19/2024 CL 111 (H) 03/19/2024 ANIONGAP 10 03/19/2024 BUN 33 (H) 03/19/2024 CREATININE 1.00 03/19/2024 CALCIUM 9.3 03/19/2024 MG 1.8 (L) 03/18/2024 PHOS 3.2 03/16/2024 Lab Results Component Value Date BILITOT 0.3 03/16/2024 ALKPHOS 63 03/16/2024 AST 20 03/16/2024 ALT 14 03/16/2024 PROT 6.3 03/16/2024 ALBUMIN 4.3 03/16/2024 No results found for: CHOLESTEROL , CHOLESTEROL TOTAL , TRIGLYCERIDES , HDL , LDL CHOLESTEROL , LDL DIRECT , LDL CALC Lab Results Component Value Date BNP 142 (H) 03/16/2024 Lab Results Component Value Date TSH 0.70 03/18/2024 No results found for: DIGOXIN LVL No results found for: HGBA1C Lab Results Component Value Date WBC 6.33 03/19/2024 RBC 4.04 (L) 03/19/2024 HGB 12.9 (L) 03/19/2024 HCT 38.1 (L) 03/19/2024 MCV 94.3 03/19/2024 MCH 31.9 03/19/2024 MCHC 33.9 03/19/2024 RDW 12.7 03/19/2024 NEUTOPHILPCT 63.6 03/16/2024 LYMPHOPCT 19.1 (L) 03/16/2024 MONOPCT 13.3 (H) 03/16/2024 EOSPCT 2.7 03/16/2024 BASOPCT 0.8 03/16/2024 NEUTROABS 4.06 03/16/2024 LYMPHSABS 1.22 03/16/2024 MONOSABS 0.85 03/16/2024 EOSABS 0.17 03/16/2024 BASOSABS 0.05 03/16/2024 PLT 145 (L) 03/19/2024 NRBC 0.0 03/16/2024 No X-ray results found for the past 24 hours CV Testing: Encounter Date: 03/16/24 ECG 12 lead Result Value Ventricular Rate 41 Atrial Rate 41 NC Interval 208 QRS DURATION 114 QT Interval 474 QTC CALCULATION(BAZETT) 391 P [place] 75 R-[place] 0 T Wave [place] 4 Impression Marked sinus bradycardia Moderate voltage criteria for LVH, may be normal variant ( Sokolow-Rosado , Dillon product ) Abnormal ECG When compared with ECG of 14-FEB-2002 05:18, Vent. rate has decreased BY 51 BPM Criteria for Inferior infarct are no longer Present Non-specific change in ST segment in Lateral T wave inversion no longer evident in Anterolateral leads QT has shortened Confirmed by Cam Sommers ([id number]) on 03/17/2024 11:09:29 AM Assessment/Plan Jeremiah Viera is a 78 year old male, with PMH significant for HTN, CAD s/p CAB (more content not included)... [facility] 03-18-2024 Note Hospital Medicine Daily Progress Note - 03/18/2024 1:36 PM; Room: [address] [place] [address] Admission: 03/16/2024 10:45 PM; Length of stay: 2 days THE HOSPITALIST TEAM PREFERS TO USE [employer] FOR COMMUNICATION 7AM-7PM. IF I DO NOT RESPOND WITHIN 15 MINUTES, PLEASE PAGE ME/CALL THROUGH THE [employer] MACHINE OPERATOR. FROM 7PM-7AM, PLEASE PAGE [phone](COVR) Code Status: Full Code Barriers to Discharge: PPM placement Expected Discharge Date: 2-3 days Discharge Destination: home Overview Patient is seen for evaluation and management of bradycardia. Jeremiah Viera is an 78 y.o. male who came from home with past medical history of CAD s/p CABG, HTN, HLD, chronic diastolic CHF, mitral and aortic valve regurgitation, NSVT, bradycardia with event monitor in place presents to [facility] as a direct admission from [facility] with bradycardia. Patient reports that he was having low heart rates while in his cardiology office so they prescribed him an event monitor. Patient reports that he was notified on morning that he had a pause overnight but patient is unsure how long the pause was. He reports that he was called again on Tuesday morning that he had had another pause and multiple episodes of bradycardia and he was instructed to go to the nearest hospital for further workup. Subjective Patient assessed at bedside, he denies any chest pain or shortness of breath. Denies any lightheadedness, dizziness, no nausea or vomiting. Physical Exam Visit Vitals BP (!) 171/46 Pulse (!) 40 Temp 36.8 ???C (98.2 ???F) (Temporal) Resp 13 Intake/Output Summary (Last 24 hours) at 03/18/2024 1336 Last data filed at 03/18/2024 0916 Gross per 24 hour Intake 440 ml Output -- Net 440 ml Physical Exam Vitals reviewed. Constitutional: General: He is awake. He is not in acute distress. Appearance: Normal appearance. He is not ill-appearing. Cardiovascular: Rate and Rhythm: Regular rhythm. Bradycardia present. Heart sounds: Normal heart sounds. Pulmonary: Effort: Pulmonary effort is normal. No tachypnea, accessory muscle usage or respiratory distress. Breath sounds: Normal breath sounds. Abdominal: General: Bowel sounds are normal. There is no distension. Palpations: Abdomen is soft. Tenderness: There is no abdominal tenderness. Skin: General: Skin is warm and dry. Neurological: Mental Status: He is alert and oriented to person, place, and time. Mental status is at baseline. Psychiatric: Attention and Perception: Attention normal. Mood and Affect: Mood normal. Speech: Speech normal. Behavior: Behavior is cooperative. Estimated body mass index is 21.31 kg/m??? as calculated from the following: Height as of this encounter: 1.803 m (5' 11 ). Weight as of this encounter: 69.3 kg (152 lb 12.8 oz). Active Inpatient Problems Principal Problem: Bradycardia Active Problems: Mitral and aortic valve regurgitation CAD (coronary artery disease) Essential hypertension Hyperlipidemia NSVT (nonsustained ventricular tachycardia) ([facility]) Chronic diastolic CHF (congestive heart failure) ([facility]) Assessment and Plan Sinus Bradycardia, asymptomatic Cardiology following to evaluate for PPM placement, possibly will go tomorrow, hold heparin prior to procedure NPO at midnight Patient as low as 34 HR according to vitals Continuous telemetry CAD s/p CABG Continue pravastatin Chronic diastolic heart failure, NYHA II, not in exacerbation Continue lasix Essential Hypertension Patient was taken off of carvedilol and nifedipine about 4 weeks ago, continue lisinopril Mitral and Aortic Valve Regurgitation Continue follow up with cardiology for monitoring outpatient Activity as tolerated, monitor for dizziness or lightheadedness Vitals every 4 hours Regular cardiac diet if no PPM scheduled, don't suspect it will be Case discussed with Dr. Dyson Wounds: No nursing wound documentation available at this time Nutrition Screen: VTE Prophylaxis: Will start AFTER PROCEDURE Scheduled Meds aspirin, 81 mg, oral, Daily with breakfast furosemide, 20 mg, oral, Daily lisinopril, 40 mg, oral, Daily pravastatin, 40 mg, oral, Nightly Pertinent Investigations Hematology: Results from last 7 days Lab Units 03/18/24 0529 03/17/24 0603/16/24 2323 WBC AUTO 10*3/uL 5.72 5.62 6.38 HEMOGLOBIN g/dL 12.9* 13.3 13.5 HEMATOCRIT % 37.7* 38.4* 39.1 MCV fL 94.5 95.5 94.9 PLATELETS AUTO 10*3/uL 142* 151 157 INR -- -- 1.04 Chemistry: Results from last 7 days Lab Units 03/18/24 0448 03/17/24 0603/16/24 2323 SODIUM mmol/L 143 144 141 POTASSIUM mmol/L 3.9 3.8 3.7 CHLORIDE mmol/L 109* 109* 109* CO2 mmol/L 25 27 23 BUN mg/dL 23 18 20 CREATININE mg/dL 0.99 0.91 0.92 GLUCOSE mg/dL 90 87 92 MAGNESIUM mg/dL 1.8* 1.8* 1.9 CALCIUM mg/dL 8.6 9.1 9.3 PHOSPHORUS mg/dL -- -- 3.2 Results from last 7 days Lab Units 03/16/24 2323 AST U/ (more content not included)... [facility] 03-18-2024 Note [facility]TP CARDIOLOGY INPAT IENT PROGRESS NOTE Reason for follow up: bradycardia Subjective HPI: Jeremiah Viera is a 78 y.o. male patient is presenting after being contacted by the telemetry unit regarding sinus pauses detected on the event monitor. Past medical history includes: CAD status post CABG HTN HLD MVR AVR Sinus bradycardia The patient was recently admitted to [facility], where he was found to have episodes of bradycardia. His beta-rosibel (Coreg) was held, and he was discharged with an event monitor and an EP follow-up. The event monitor detected sinus pauses, and he was contacted to present to the ED for further evaluation. In the ED, the patient was bradycardic with a heart rate down to 34. Labs showed magnesium level of 1.9, potassium level of 3.7. EKG showing sinus bradycardia. Interval: Patient examined at bedside. He appears well and in NAD. Denies any cp, sob, dizziness/light headedness, edema, syncope or near syncope. He ambulated in room today and without concerns. Denies symptoms during bradycardia episodes overnight. Discussed with patient possibility of pacemaker. He is agreeable to procedure if indicated. Tele: sinus rhythm 1st degree block, rate 28-76, junctional rhythm/beats ALLERGIES No Known Allergies CURRENT MEDS aspirin, 81 mg, oral, Daily with breakfast furosemide, 20 mg, oral, Daily heparin (porcine), 5,000 Units, subcutaneous, BID lisinopril, 40 mg, oral, Daily pravastatin, 40 mg, oral, Nightly PRN medications: acetaminophen, melatonin, ondansetron ODT OR ondansetron, potassium nursing electrolyte replacement placeholder Objective Patient Vitals for the past 24 hrs: BP Temp Temp src Pulse Resp SpO2 Weight 03/18/24 0916 135/61 36.4 ???C (97.5 ???F) Temporal (!) 48 23 98 % -- 03/18/24 0910 (!) 130/32 -- -- -- -- -- -- 03/18/24 0500 -- -- -- -- -- -- 69.3 kg (152 lb 12.8 oz) 03/18/24 0400 -- -- -- (!) 37 13 97 % -- 03/18/24 0034 131/81 36.7 ???C (98.1 ???F) -- 55 18 100 % -- 03/18/24 0000 -- 36.7 ???C (98.1 ???F) -- -- -- -- -- 03/17/24 2000 124/66 36.3 ???C (97.3 ???F) -- (!) 38 16 98 % -- 03/17/24 1637 162/68 37 ???C (98.6 ???F) Temporal (!) 38 17 98 % -- 03/17/24 1200 165/52 36.7 ???C (98.1 ???F) Temporal (!) 36 13 99 % -- BP 135/61 (BP Location: Left arm, Patient Position: Sitting) Pulse (!) 48 Temp 36.4 ???C (97.5 ???F) (Temporal) Resp 23 Ht 1.803 m (5' 11 ) Wt 69.3 kg (152 lb 12.8 oz) SpO2 98% BMI 21.31 kg/m??? Wt Readings from Last 3 Encounters: 03/18/24 69.3 kg (152 lb 12.8 oz) 02/23/24 72.6 kg (160 lb) 05/24/22 71.7 kg (158 lb) General: Awake, alert, appropriate mood/affect, NAD Eyes: anicteric sclera. Non-injected conjunctiva. Neck: No elevated JVP. Pulm: Breath sounds clear to ascultation bilaterally with no wheeze, crackles or rhonchi Cards: HRRR, NL S1, S2. No S3 or S4 gallop. Murmur: none Abd: Soft, Nontender, physiologic bowel sounds are present Extr: Lower extremity edema: none. DP pulses present bilaterally Skin: warm, dry, well perfused Neuro: A&Ox3, No gross deficits Lab Results Component Value Date NA 143 03/18/2024 K 3.9 03/18/2024 CL 109 (H) 03/18/2024 ANIONGAP 13 03/18/2024 BUN 23 03/18/2024 CREATININE 0.99 03/18/2024 CALCIUM 8.6 03/18/2024 MG 1.8 (L) 03/18/2024 PHOS 3.2 03/16/2024 Lab Results Component Value Date BILITOT 0.3 03/16/2024 ALKPHOS 63 03/16/2024 AST 20 03/16/2024 ALT 14 03/16/2024 PROT 6.3 03/16/2024 ALBUMIN 4.3 03/16/2024 No results found for: CHOLESTEROL , CHOLESTEROL TOTAL , TRIGLYCERIDES , HDL , LDL CHOLESTEROL , LDL DIRECT , LDL CALC Lab Results Component Value Date BNP 142 (H) 03/16/2024 No results found for: THYROID , TSH , FREE T4 No results found for: DIGOXIN LVL No results found for: HGBA1C Lab Results Component Value Date WBC 5.72 03/18/2024 RBC 3.99 (L) 03/18/2024 HGB 12.9 (L) 03/18/2024 HCT 37.7 (L) 03/18/2024 MCV 94.5 03/18/2024 MCH 32.3 03/18/2024 MCHC 34.2 03/18/2024 RDW 12.7 03/18/2024 NEUTOPHILPCT 63.6 03/16/2024 LYMPHOPCT 19.1 (L) 03/16/2024 MONOPCT 13.3 (H) 03/16/2024 EOSPCT 2.7 03/16/2024 BASOPCT 0.8 03/16/2024 NEUTROABS 4.06 03/16/2024 LYMPHSABS 1.22 03/16/2024 MONOSABS 0.85 03/16/2024 EOSABS 0.17 03/16/2024 BASOSABS 0.05 03/16/2024 PLT 142 (L) 03/18/2024 NRBC 0.0 03/16/2024 No X-ray results found for the past 24 hours CV Testing: Encounter Date: 03/16/24 ECG 12 lead Result Value Ventricular Rate 41 Atrial Rate 41 NC Interval 208 QRS DURATION 114 QT Interval 474 QTC CALCULATION(BAZETT) 391 P [place] 75 R-[place] 0 T Wave [place] 4 Impression Marked sinus bradycardia Moderate voltage criteria for LVH, may be normal variant ( Sokolow-Rosado , [place] product ) Abnormal ECG When compared with ECG of 14-FEB-2002 05:18, Vent. rate has decreased BY 51 BPM Criteria for Inferior infarct are no longer Present Non-specific change i (more content not included)... [facility] 03-17-2024 Note 03/17/24 0831 Admission Assessment Questions Verify insurance with patient Yes Do you understand medical disease or what brought you into the hospital? Yes Who is your current PCP? Grzegorz Bui MD Can I schedule a follow up appointment for you at the time of discharge? Yes Do you understand why you are taking your current medications? Yes Are you taking your medications as prescribed? Yes Did patient provide teach back? Yes Pharmacy Bedside Delivery Status Not Interested Does the patient have a lead case manager assigned to them through their insurance? No Living Arrangement (Current/Prior to Hospitalization) Private residence;Home self care (lives w/ in one story home. Has 2 entry steps. NO difficulty) Does the patient have history of HHC or SNF? No Assistive Device Grab bars;Other (Comment) (shower bench) Patient's goal for discharge home this weekend Was patient reminded that goal for discharge is 11am? No Does the patient have transportation at discharge? Yes (son) Type of Residence Private residence Is PT/OT appropriate? Yes Is PT/OT ordered? Yes Is SW consult appropriate? No Is SW consult ordered? No Do you understand the benefits of MyChart? No Were you able to send link and activate MyChart? No [facility] 03-17-2024 Note Hospital Medicine Daily Progress Note - 03/17/2024 2:48 PM; Room: [facility]/3120- Admission: 03/16/2024 10:45 PM; Length of stay: 1 days THE HOSPITALIST TEAM PREFERS TO USE [employer] CHAT FOR COMMUNICATION 7AM-7PM. IF I DO NOT RESPOND WITHIN 15 MINUTES, PLEASE PAGE ME/CALL THROUGH THE [employer] MACHINE OPERATOR. FROM 7PM-7AM, PLEASE PAGE [phone](COVR) Code Status: Full Code Barriers to Discharge: bradycardia Expected Discharge Date: 1-3 days depending on plan for PPM vs monitoring Discharge Destination: home Overview Patient is seen for evaluation and management of bradycardia. Jeremiah Viera is an 78 y.o. male who came from home with past medical history of CAD s/p CABG, HTN, HLD, chronic diastolic CHF, mitral and aortic valve regurgitation, NSVT, bradycardia with event monitor in place presents to [facility] as a direct admission from [facility] with bradycardia. Patient reports that he was having low heart rates while in his cardiology office so they prescribed him an event monitor. Patient reports that he was notified on morning that he had a pause overnight but patient is unsure how long the pause was. He reports that he was called again on Tuesday morning that he had had another pause and multiple episodes of bradycardia and he was instructed to go to the nearest hospital for further workup. Subjective Patient denies any dizziness, lightheadedness, chest pain or shortness of breath. Physical Exam Visit Vitals BP 165/52 (BP Location: Left arm, Patient Position: Lying) Pulse (!) 36 Temp 36.7 ???C (98.1 ???F) (Temporal) Resp 13 No intake or output data in the 24 hours ending 03/17/24 1448 Physical Exam Vitals reviewed. Constitutional: General: He is awake. He is not in acute distress. Appearance: Normal appearance. He is not ill-appearing. Cardiovascular: Rate and Rhythm: Regular rhythm. Bradycardia present. Heart sounds: Normal heart sounds. Pulmonary: Effort: Pulmonary effort is normal. No tachypnea, accessory muscle usage or respiratory distress. Breath sounds: Normal breath sounds. Abdominal: General: Bowel sounds are normal. There is no distension. Palpations: Abdomen is soft. Tenderness: There is no abdominal tenderness. Skin: General: Skin is warm and dry. Neurological: Mental Status: He is alert and oriented to person, place, and time. Mental status is at baseline. Psychiatric: Attention and Perception: Attention normal. Mood and Affect: Mood normal. Speech: Speech normal. Behavior: Behavior is cooperative. Estimated body mass index is 22.04 kg/m??? as calculated from the following: Height as of this encounter: 1.803 m (5' 11 ). Weight as of this encounter: 71.7 kg (158 lb). Active Inpatient Problems Principal Problem: Bradycardia Active Problems: Mitral and aortic valve regurgitation CAD (coronary artery disease) Essential hypertension Hyperlipidemia NSVT (nonsustained ventricular tachycardia) ([facility]) Chronic diastolic CHF (congestive heart failure) ([facility]) Assessment and Plan Sinus Bradycardia, asymptomatic Cardiology following to evaluate for PPM placement Patient as low as 34 HR according to vitals Continuous telemetry CAD s/p CABG Continue pravastatin Chronic diastolic heart failure, NYHA II, not in exacerbation Continue lasix Essential Hypertension Patient was taken off of carvedilol and nifedipine about 4 weeks ago, continue lisinopril Mitral and Aortic Valve Regurgitation Continue follow up with cardiology for monitoring outpatient Activity as tolerated, monitor for dizziness or lightheadedness Vitals every 4 hours Regular cardiac diet if no PPM scheduled, don't suspect it will be Case discussed with Dr. Dyson Wounds: No nursing wound documentation available at this time Nutrition Screen: VTE Prophylaxis: Heparin subcutaneous Scheduled Meds [START ON 03/18/2024] aspirin, 81 mg, oral, Daily with breakfast furosemide, 20 mg, oral, Daily heparin (porcine), 5,000 Units, subcutaneous, BID lisinopril, 40 mg, oral, Daily pravastatin, 40 mg, oral, Nightly Pertinent Investigations Hematology: Results from last 7 days Lab Units 03/17/24 0620 03/16/24 2323 WBC AUTO 10*3/uL 5.62 6.38 HEMOGLOBIN g/dL 13.3 13.5 HEMATOCRIT % 38.4* 39.1 MCV fL 95.5 94.9 PLATELETS AUTO 10*3/uL 151 157 INR -- 1.04 Chemistry: Results from last 7 days Lab Units 03/17/24 0620 03/16/24 2323 SODIUM mmol/L 144 141 POTASSIUM mmol/L 3.8 3.7 CHLORIDE mmol/L 109* 109* CO2 mmol/L 27 23 BUN mg/dL 18 20 CREATININE mg/dL 0.91 0.92 GLUCOSE mg/dL 87 92 MAGNESIUM mg/dL -- 1.9 CALCIUM mg/dL 9.1 9.3 PHOSPHORUS mg/dL -- 3.2 Results from last 7 days Lab Units 03/16/24 2323 AST U/L 20 ALT U/L 14 ALK PHOS U/L 63 BILIRUBIN TOTAL mg/dL 0.3 Historical Values: (Includes values prior to this admission) No results found for: PREALBUMIN , TSH , T3FREE , FREET4 , (more content not included)... [facility] 03-16-2024 Note Hospital Medicine History and Physical 03/16/2024 11:14 PM THE HOSPITALIST TEAM PREFERS TO USE [employer] CHAT FOR COMMUNICATION 7AM-7PM. IF I DO NOT RESPOND WITHIN 15 MINUTES, PLEASE PAGE ME/CALL THROUGH THE [employer] MACHINE OPERATOR. FROM 7PM-7AM, PLEASE PAGE [phone](COVR) Chief Complaint Direct admission from [facility] with bradycardia History of Present Illness Jeremiah Viera is an 78 y.o. male who came from home with past medical history of CAD s/p CABG, HTN, HLD, chronic diastolic CHF, mitral and aortic valve regurgitation, NSVT, bradycardia with event monitor in place presents to [facility] as a direct admission from [facility] with bradycardia. Patient reports that he was having low heart rates while in his cardiology office so they prescribed him an event monitor. Patient reports that he was notified on morning that he had a pause overnight but patient is unsure how long the pause was. He reports that he was called again on Tuesday morning that he had had another pause and multiple episodes of bradycardia and he was instructed to go to the nearest hospital for further workup. Patient denies any symptoms during any of these episodes and currently denies chest pain, shortness of breath, nausea, vomiting, dizziness, lightheadedness. Upon arrival to [facility], labs were completed showing WBC 7.9, RBC 4.12, hemoglobin 13.5, hematocrit 39.7, INR 0.99, sodium 142, potassium 3.9, chloride 106, BUN 22, creatinine 1.19, calcium 9.1. CXR was completed showing no acute process. Patient was transferred to [facility] for possible pacemaker implantation. Review of System and Physical Exam Physical Exam Vitals reviewed. Constitutional: Appearance: He is normal weight. HENT: Head: Normocephalic. Mouth/Throat: Mouth: Mucous membranes are moist. Pharynx: Oropharynx is clear. Eyes: Conjunctiva/sclera: Conjunctivae normal. Cardiovascular: Rate and Rhythm: Bradycardia present. Pulmonary: Effort: Pulmonary effort is normal. Breath sounds: Normal breath sounds. Abdominal: General: Bowel sounds are normal. Musculoskeletal: General: Normal range of motion. Cervical back: Normal range of motion. Skin: General: Skin is warm and dry. Capillary Refill: Capillary refill takes less than 2 seconds. Neurological: General: No focal deficit present. Mental Status: He is alert and oriented to person, place, and time. Mental status is at baseline. Psychiatric: Mood and Affect: Mood normal. Review of Systems Constitutional: Negative for chills, diaphoresis, fatigue and fever. HENT: Negative for congestion. Eyes: Negative for discharge. Respiratory: Negative for chest tightness and shortness of breath. Cardiovascular: Negative for chest pain and palpitations. Gastrointestinal: Negative for abdominal pain, constipation, diarrhea, nausea and vomiting. Genitourinary: Negative for difficulty urinating and dysuria. Musculoskeletal: Negative for arthralgias. Skin: Negative for color change and pallor. Neurological: Negative for dizziness, facial asymmetry and headaches. Psychiatric/Behavioral: Negative for agitation and behavioral problems. Problem List Patient Active Problem List Diagnosis Date Noted Mitral and aortic valve regurgitation 02/23/2024 Bradycardia 02/23/2024 ALEXANDREA (generalized anxiety disorder) 02/23/2024 Lumbar spondylosis 02/23/2024 NSVT (nonsustained ventricular tachycardia) ([facility]) 02/23/2024 Coronary arteriosclerosis 04/30/2022 Gastroesophageal reflux disease 04/30/2022 Cardiovascular stress test abnormal 04/20/2022 CAD (coronary artery disease) 04/20/2022 Essential hypertension 04/20/2022 GERD (gastroesophageal reflux disease) 04/20/2022 Hyperlipidemia 04/20/2022 Sinus bradycardia 04/20/2022 Assessment and Plan Jeremiah Viera is an 78 y.o. male who came from home with past medical history of CAD s/p CABG, HTN, HLD, chronic diastolic CHF, mitral and aortic valve regurgitation, NSVT, bradycardia with event monitor in place presents to [facility] as a direct admission from [facility] with bradycardia. #Sinus bradycardia -EKG shows sinus bradycardia and event monitor with noted pauses which prompted patient to go to the emergency department -Patient completely asymptomatic -N.p.o. at midnight for possible pacemaker implantation -DVT prophylaxis on hold -Holding blood pressure medications overnight until cardiology evaluation -Cardiology consult #CAD, s/p CABG #Chronic diastolic CHF, continue GDMT, unspecified NYHA class #Hypertension, will hold blood pressure medications overnight until cardiology evaluation #Hyperlipidemia, continue home medications #Mitral and aortic valve regurgitation, continue to monitor outpatient with cardiology #NSVT VTE Prophylaxis: Will start AFTER PROCEDURE ----- Focus of this inpatient stay will remain on problems that (more content not included)... [facility] 02-23-2024 Note Event monitor 30 day Decrease coreg in half- D/W pt that if he has any symptoms- lightheadedness/dizziness/ or syncope he is to call 911 and or office- he voiced understanding- D/W pt that if he becomes symptomatic, significant heart block or pauses he may need a Perm pacemaker and he voiced understanding [facility] 02-23-2024 Note Will decrease coreg to 3.125 mg bid- I am hesitant to stop completely r/t h/o NSVT Event monitor 30 day [facility] 02-23-2024 Note Stable, no concerning [facility] Lipid abnormalities are unchanged. Pharmacotherapy as ordered. Lipids will be reassessed in 3 months. [facility] 02-23-2024 Note Patient here for 1.5 year follow up CAD, sinus bradycardia, valvular disease, and hypertension. Had routine labs w/ lipid panel in December 2023. He is doing very well, and denies chest pain, SOB, palpitations, and lightheadedness/syncope. Review of Systems All other systems reviewed and are negative. [facility] 02-23-2024 Note UTP CARDIOLOGY PROGR ESS NOTE HPI: Jeremiah Viera is a 78 y.o. male here for routine 2 year F/U HPI 78 yo male presents today for routine F/U for known CAD s/p CABG, HTN, HPL Patient here for 1.5 year follow up CAD, sinus bradycardia, valvular disease, and hypertension. Had routine labs w/ lipid panel in December 2023. He is doing very well, and denies chest pain, SOB, palpitations, and lightheadedness/syncope. Denied chest pain, SOB, orthopnea or palpitations Denied lightheadedness/dizziness, syncope or near syncope Review of Systems All other systems reviewed and are negative. Visit Vitals BP 150/50 (BP Location: Left arm, Patient Position: Sitting) Pulse (!) 38 Ht 1.803 m (5' 11 ) Wt 72.6 kg (160 lb) SpO2 98% BMI 22.32 kg/m??? Smoking Status Never BSA 1.91 m??? No Known Allergies Medications: Current Outpatient Medications on File Prior to Visit Medication Sig Dispense Refill aspirin 81 mg chewable tablet Chew 1 tablet every day by oral route. furosemide (Lasix) 20 mg tablet Take 1 tablet (20 mg) by mouth in the morning. 90 tablet 3 lisinopril 40 mg tablet Take 1 tablet (40 mg) by mouth in the morning. 90 tablet 3 nitroglycerin (Nitrostat) 0.[address] 0.4 mg under the tongue every 5 (five) minutes if needed. pravastatin (Pravachol) 40 mg tablet TAKE 1 TABLET BY MOUTH AT BEDTIME 90 tablet 3 [DISCONTINUED] carvedilol (Coreg) 6.25 mg tablet Take 1 tablet (6.25 mg) by mouth with breakfast and with evening meal. 180 tablet 3 [DISCONTINUED] NIFEdipine XL (Procardia XL) 30 mg 24 hr tablet Take 1 tablet (30 mg) by mouth in the morning. 90 tablet 3 No current facility-administered medications on file prior to visit. Physical Exam: Constitutional: Appearance: Normal appearance. Without apparent distress HENT: Head: Normocephalic and atraumatic. Nose: Nose normal. Mouth/Throat: Mouth: Mucous membranes are moist. Eyes: Extraocular Movements: Extraocular movements intact. Conjunctiva/sclera: Conjunctivae normal. Neck: Vascular: No JVD. Cardiovascular: Rate and Rhythm: Bradycardia and regular rhythm. Pulses: Dorsalis pedis pulses are 3 on the right side and 3on the left side. Posterior tibial pulses are 3 on the right side and 3 on the left side. Heart sounds: Normal heart sounds, S1 normal and S2 normal. Pulmonary: Effort: Pulmonary effort is normal. Breath sounds: Normal breath sounds. Abdominal: General: Bowel sounds are normal. Palpations: Abdomen is soft. Musculoskeletal: General: Normal range of motion. Cervical back: Normal range of motion. Right lower leg: No edema. Left lower leg: No edema. Skin: General: Skin is warm and dry. Capillary Refill: Capillary refill takes less than 2 seconds. Neurological: General: No focal deficit present. Mental Status: he is alert and oriented to person, place, and time. Psychiatric: Mood and Affect: Mood normal. Behavior: Behavior normal. Thought Content: Thought content normal. Judgment: Judgment normal. Labs: reviewed with Pt 12/30/23 CBC stable NA 144, K+ 4.3- normal BUN 21, Cr 1.13, GFR > 60- normal renal function LFT normal Chol 137, trig 136, HDL 46, LDL 63.8- well controlled Last lab values have been reviewed CV Testing: reviewed with pt 12/17/2022 LVSF- lower limits of normal 50-55% Mod dilated RV mildly reduced systolic function Gr 2 DD Severe biatrial dilitation Mod TV regurg Mild to mod Pulm regurg Mild AO regurg Mild to mod MV regurg Moderately elevated rt sided pressure Assessment/Plan: Coronary arteriosclerosis Coronary artery disease is unchanged. Continue GDMT- ASA, coreg, pravastatin and lisinopril continue risk factor modifications- heart healthy diet, regular exercise as tolerated and continue all medications. Essential hypertension Hypertension is unchanged. Continue current treatment regimen. Dietary sodium restriction. Continue current medications. Blood pressure will be reassessed at the next regular appointment. Hyperlipidemia Lipid abnormalities are unchanged. Pharmacotherapy as ordered. Lipids will be reassessed in 3 months. Mitral and aortic valve regurgitation Stable, no concerning symptoms NSVT (nonsustained ventricular tachycardia) (CMS/HCC) Will decrease coreg to 3.125 mg bid- I am hesitant to stop completely r/t h/o NSVT Event monitor 30 day Sinus bradycardia Event monitor 30 day Decrease coreg in half- D/W pt that if he has any symptoms- lightheadedness/dizziness/ or syncope he is to call 911 and or office- he voiced understanding- D/W pt that if he becomes symptomatic, significant heart block or pauses he may need a Perm pacemaker and he voiced understanding RTC 2-[address] Sommers to review event monitor and bradycardia [facility] 02-23-2024 Note Hypertension is unch anged. Continue current treatment regimen. Dietary sodium restriction. Continue current medications. Blood pressure will be reassessed at the next regular appointment. [facility] 02-23-2024 Note Coronary artery dise ase is unchanged. Continue GDMT- ASA, coreg, pravastatin and lisinopril continue risk factor modifications- heart healthy diet, regular exercise as tolerated and continue all medications. [facility] 07-20-2023 Evaluation note Encounter Date Diagnosis Assessment Notes Jul, ASHD (arterioscleroti c heart disease) (ICD-10 - I25.10) This patient is stable without activity related CP, dyspnea or lightheadedness. They are instructed to continue exercise and AHA diet plan. Continue secondary prevention measures. Jul, Primary hypertension (ICD-10 - I10) This patient is instructed to consume a healthy, low-fat, low-salt diet. They are also encouraged to continue exercise to achieve/maintain a normal BMI. Jul, Elevated cholesterol (ICD-10 - E78.00) Instructed on diet and exercise with continued statin therapy.Discussed the beneficial effects of lowering cholesterol in reducing the risk for cerebrovascular and cardiovascular disease. Jul, Nonrheumatic mitral valve regurgitation (ICD-10 - I34.0) Denies CP, dyspnea on exertion, PND or orthopnea. f/u Echo w/ Cardiology Jul, NSVT (nonsustained ventricular tachycardia) (ICD-10 - I47.29) Denies CP, dyspnea or lightheadedness. Denies palpitations. Avoid stimulants. Continue medical therapy Jul, Bradycardia (ICD-10 - R00.1) Asymptomatic. Continues to exerise w/o CP, MERCADO or lightheadedness His HR does respond to exercise. Jul, ALEXANDREA (generalized anxiety disorder) (ICD-10 - F41.1) Healthy diet and exercise. Keep active. No change in medical therapy Jul, Lumbar spondylosis (ICD-10 - M47.816) The patient is instructed to avoid bending, twisting or lifting. They are to use intermittent heat and ice as needed. They may schedule a massage or gentle manipulation. They may safely use Tylenol as needed. [facility] Other 07-31-2023 Evaluation note* Encounter Date Diagnosis Assessment Notes Treatment Notes Treatment Clinical Notes Mar, ALEXANDREA (generalized anxiety disorder) (ICD-10 - F41.1) [facility] Other 04-16-2023 Evaluation note* Encounter Date Diagnosis Assessment Notes Treatment Notes Treatment Clinical Notes Dec, Nonrheumatic mitral valve regurgitation (ICD-10 - I34.0) ECHOCARDIOGRAM - 12/2022 1 LVEF is 50 to 55%. 2. Dilated right ventricle, reduced systolic function, increase RV pressure 3. Grade 2 diastolic dysfunction. 4. Severe biatrial dilatation. 5. Moderate tricuspid regurgitation. [facility] Other 04-12-2023 Evaluation note* Encounter Date Diagnosis Assessment Notes Treatment Notes Treatment Clinical Notes Dec, ASHD (arteriosclerotic heart disease) (ICD-10 - I25.10) This patient is stable without activity related CP, dyspnea or lightheadedness. They are instructed to continue exercise and AHA diet plan. Dec, Medicare annual wellness visit, subsequent (ICD-10 - Z00.00) Personalized health advice was given to the beneficiary including a written plan for screenings discussed and provided. Advanced care planning reviewed and/or information given as requested. Additional counseling was provided here today in regards to, [ ]. The above visit was performed by [ ], under direct supervision of [ ]. Document reviewed and amended by provider signed below. Dec, Primary hypertension (ICD-10 - I10) This patient is instructed to consume a healthy, low-fat, low-salt diet. They are also encouraged to continue exercise to achieve/maintain a normal BMI. Dec, Elevated cholesterol (ICD-10 - E78.00) Diet and exercise with continued statin therapy. Dec, Nonrheumatic mitral valve regurgitation (ICD-10 - I34.0) Low salt diet, serial Echocardiogram Dec, NSVT (nonsustained ventricular tachycardia) (ICD-10 - I47.29) Denies CP, dyspnea, palpitations or lightheadedness Dec, Bradycardia (ICD-10 - R00.1) Asymptomatic, no change in treatment, f/u Cardiology Dec, ALEXANDREA (generalized anxiety disorder) (ICD-10 - F41.1) Healthy diet,exercise adn keep active Dec, Lumbar spondylosis (ICD-10 - M47.816) The patient is instructed to avoid bending, twisting or lifting. They are to use intermittent heat and ice as needed. They may schedule a massage or gentle manipulation. They may safely use Tylenol as needed. Dec, High risk medication use (ICD-10 - Z79.899) Dec, Screening PSA (prostate specific antigen) (ICD-10 - Z12.5) [facility] Other Evaluation noteNo InformationNort Roadster Other Evaluation note* Diagnosis Onset Date Resolution Status ASHD (arteriosclerotic heart disease) acute Elevated cholesterol acute ALEXANDREA (generalized anxiety disorder) acute Lumbar spondylosis acute NSVT (nonsustained ventricular tachycardia) acute Primary hypertension acute Medicare annual wellness visit, subsequent noneactive [facility] Work Phone: Evaluation note* Diagnosis Onset Date Resolution Status ASHD (arteriosclerotic heart disease) acute Elevated cholesterol acute NSVT (nonsustained ventricular tachycardia) acute Primary hypertension acute Sinus bradycardia acute [facility] Work Phone: History general Narrative - Reported* Type Description Date Medical History ALEXANDREA (generalized anxiety disorde r) Medical History ASHD (arteriosclerotic heart dis ease) Medical History Primary hypertension Medical History Elevated cholesterol Medical History Lumbar spondylosis Medical History Non-rheumatic mitral regurgitati on Medical History NSVT (nonsustained ventricular t achycardia) Medical History Gastroesophageal ref lux disease with esophagitis without hemorrhage Surgical History EXCISE BCC 2006 Surgical History CABG X 4 Surgical History COLONOSCOPY 2011 Hospitalization History SEE SURGICAL HX [facility] Other Summary Purpose Family History No Family History Records FoundNo Family History Records Found Advance Directives No Advanced Directives Records Found Advance Directive Response Recorded Date/ Time Advance Directives No September 29, 2023 3:26pm Chief Complaint and Reason for Visit Chief Complaint wellness Reason for Visit ASHD (arteriosclerot ic heart disease) Elevated cholesterol ALEXANDREA (generalized anxiety disorder) Lumbar spondylosis NSVT (nonsustained ventricular tachycardia) Primary hypertension Medicare annual wellness visit, subsequent Chief Complaint Amb Documentation Hospital follow up Reason for Visit ASHD (arteriosclerot ic heart disease) Elevated cholesterol NSVT (nonsustained ventricular tachycardia) Primary hypertension Sinus bradycardia Additional Source Comments REASON FOR VISIT (unrecogniz ed section and content) WellnessNo InformationWellne ssBP readingsRefillWellnessflu shot3 month Follow up (unrecognized sect ion and content) No Status Records FoundNo Status Records Found INFORMATION SOURCE (unrecogn ized section and content) DATE CREATED AUTHOR 2022 [facility] DATE CREATED AUTHOR AUTHOR'S HILDA GARCIA 04/08/2024 [facility] Care Teams (unrecognized sec tion and content) Team Status: Active Member Role Status Dates Grzegorz Bui , DO Primary Care Provider Active Team Status: Active Member Role Status Dates Grzegorz Bui , DO Primary Care Provide r, Attending Provider Active Start: March 16, 2024 Team Status: Active Member Role Status Dates Grzegorz Bui , Primary Care Provider Active Start: March 23, 2024 BETTIE Pizarro Attending Provider Active St art: March 23, 2024 Team Status: Inactive Member Role Status Dates Grzegorz Bui , DO Primary Care Provide r, Attending Provider Active Start: March 30, 2024 End: March 30, 2024 Team Status: Inactive Member Role Status Dates Grzegorz Bui , DO Primary Care Provide r, Attending Provider Active Start: December 30, 2023 End: December 30, 2023 Goals (unrecognized section and content) Goals may be documented in a n alternate section FOR RECORDS PERTAINING TO PATIENTS WHO ARE OR HAVE BEEN ENROLLED IN A CHEMICAL DEPENDENCY/SUBSTANCEABUSE PROGRAM, SOME INFORMATION MAY BE OMITTED. This clinical summary was aggregated from multiple sources. Caution should be exercised in using it in the provision of clinical care. This summary normalizes information from multiple sources, and as a consequence, information in this document may materially change the coding, format and clinical context of patient data. In addition, data may be omitted in some cases. CLINICAL DECISIONS SHOULD BE BASED ON THE PRIMARY CLINICAL RECORDS. [facility] [employer] provides no warranty or guarantee of the accuracy or completeness of information in this document.
[2024-04-26 08:55] LABS: Basophils Absolute Auto 0.1 10^3/uL (0.0-0.1); Basophils Percent Auto 1.2 % (0.2-2.0); Eosinophils Absolute Auto 0.2 10^3/uL (0.0-0.7); Eosinophils Percent Auto 2.8 % (0.9-7.0); Hematocrit 40.9 % (42.0-54.0); Hemoglobin 13.8 g/dL (14.0-18.0); Immature Granulocytes Abs Auto 0.02 10^3/uL (0.00-0.03); Immature Granulocytes Pct Auto 0.3 % (0.0-0.5); Lymphocytes Absolute Auto 1.4 10^3/uL (1.2-3.8); Mean Corpuscular HGB Conc 33.7 g/dL (29.9-35.2); Mean Corpuscular Hemoglobin 31.9 pg (25.9-34.0); Mean Corpuscular Volume 94.5 fL (80.0-94.0); Mean Platelet Volume 10.7 fL (9.5-13.5); Monocytes Absolute Auto 0.6 10^3/uL (0.3-0.8); Monocytes Percent Auto 10.2 % (1.7-12.0); Neutrophils Absolute Auto 3.8 10^3/uL (1.4-6.5); Neutrophils Percent Auto 62.5 % (43.0-75.0); Platelet Count 154 10^3/uL (150-450); Red Blood Count 4.33 10^6/uL (4.70-6.10); Red Cell Distribution Width 12.5 % (11.0-15.0); White Blood Count 6.1 10^3/uL (4.0-11.0)
[2024-04-26 09:19] LABS: Percent Iron Saturation 40.2 %
== END 2024-04-26 08:26 | disposition home or self-care (01) ==
LOC: LAB 08:27
PROVIDERS: PCP Internal Medicine; Visit Provider Internal Medicine
DX: D64.9 Anemia, unspecified (principal)
CPT/HCPCS: 36415; 82607; 82728; 82746; 83540; 83550; 85025

== ENCOUNTER 2024-12-31 10:34 | Outpatient (OUT) | payer OTHER, SELFPAY ==
[2024-12-31 11:13] LABS: Basophils Absolute Auto 0.1 10^3/uL (0.0-0.1); Basophils Percent Auto 1.3 % (0.2-2.0); Eosinophils Absolute Auto 0.2 10^3/uL (0.0-0.7); Eosinophils Percent Auto 3.1 % (0.9-7.0); Hematocrit 39.6 % (42.0-54.0); Hemoglobin 13.1 g/dL (14.0-18.0); Immature Granulocytes Abs Auto 0.02 10^3/uL (0.00-0.03); Immature Granulocytes Pct Auto 0.4 % (0.0-0.5); Lymphocytes Absolute Auto 1.1 10^3/uL (1.2-3.8); Lymphocytes Percent Auto 20.8 % (20.5-60.0); Mean Corpuscular HGB Conc 33.1 g/dL (29.9-35.2); Mean Corpuscular Hemoglobin 32.3 pg (25.9-34.0); Mean Corpuscular Volume 97.5 fL (80.0-94.0); Mean Platelet Volume 10.9 fL (9.5-13.5); Monocytes Absolute Auto 0.6 10^3/uL (0.3-0.8); Monocytes Percent Auto 11.8 % (1.7-12.0); Neutrophils Absolute Auto 3.4 10^3/uL (1.4-6.5); Neutrophils Percent Auto 62.6 % (43.0-75.0); Platelet Count 161 10^3/uL (150-450); Red Blood Count 4.06 10^6/uL (4.70-6.10); Red Cell Distribution Width 12.9 % (11.0-15.0); White Blood Count 5.4 10^3/uL (4.0-11.0)
[2024-12-31 11:59] LABS: Alanine Aminotransferase 24 U/L (16-63); Albumin Globulin Ratio 1.4; Alkaline Phosphatase 81 U/L (46-116); Anion Gap 11.3; Aspartate Amino Transferase 25 U/L (15-37); BUN Creatinine Ratio 32.3; Bilirubin Total 0.7 mg/dL (0.2-1.0); Calcium 9.5 mg/dL (8.5-10.1); Chloride 108 mmol/L (98-107); Chol HDL Ratio 1.8; Cholesterol 114 mg/dL (<=200); Estimated GFR (African America >60 (>=60 mL/min/1.73m^2); Estimated GFR (Non-African Ame >60 (>=60 mL/min/1.73m^2); Globulin 2.9 g/dL; Glucose 96 mg/dL (74-106); HDL Cholesterol 62 mg/dL (40-60); Potassium 5.3 mmol/L (3.5-5.1); Sodium 143 mmol/L (136-145); Thyroid Stimulating Hormone 0.544 uIU/mL (0.358-3.740); Total Protein 6.9 g/dL (6.4-8.2); Triglycerides 53 mg/dL (<=150); VLDL CHOLESTEROL 10.6 mg/dL
[2024-12-31 12:36] LABS: Prostate Specific Antigen Scrn 0.53 ng/mL (<=4.00)
== END 2024-12-31 10:35 | disposition home or self-care (01) ==
LOC: LAB 10:36
PROVIDERS: PCP Internal Medicine; Visit Provider Internal Medicine
DX: E78.00 Pure hypercholesterolemia, unspecified (principal); I25.10 Atherosclerotic heart disease of native coronary artery without angina pectoris; I10 Essential (primary) hypertension; Z12.5 Encounter for screening for malignant neoplasm of prostate; R00.1 Bradycardia, unspecified; R53.83 Other fatigue
CPT/HCPCS: 36415; 80053; 80061; 84443; 85025; G0103

== ENCOUNTER 2025-01-01 09:51 | Outpatient (OUT) | payer OTHER, SELFPAY ==
--- NOTE | 2025-01-01 10:00 | CA_ITS ---
Patient Name: BHAVANA VIERA MR#: [id number] : 1945 Exam Date: 01/01/2025 Ordering Doctor: BENITO JASSO BUTTER PRINTER ECHOCARDIOGRAM REPORT PROCEDURE: CA ECHO DOPPLER COMPLETE INDICATIONS: Mitral valve regurgitation, CABGx4, cardiac stent, hypertension COMPARISON: None. DESCRIPTION: COMPLETE ECHOCARDIOGRAM Real-time transthoracic echocardiography with 2D, M-mode, spectral and color flow Doppler performed. QUALITY: Technical quality was good. LEFT VENTRICLE: Mild dilatation. Thickened septal wall. LV EF: Global left ventricular systolic function is normal; visually estimated ejection fraction is 60 to 65%. No significant wall motion abnormalities. DIASTOLIC: Grade II diastolic dysfunction. ATRIAL SEPTUM: Visually appears intact. LEFT ATRIUM: Severe dilatation. RIGHT ATRIUM: Severe dilatation. RIGHT VENTRICLE: Severe dilatation. Decreased right ventricular systolic function. TRICUSPID VALVE: Normal mobility and thickness. Moderate regurgitation. Doppler studies reveal moderately (45-60) elevated right sided pressures. RVSP 58 mmHg MITRAL VALVE: Normal mobility and thickness. No evidence of mitral valve stenosis. There is no mitral annular calcification. Mild to moderate mitral regurgitation. AORTIC VALVE: Normal trileaflet appearance. Thickened aortic valve. Normal leaflet mobility. No evidence of aortic valve stenosis. Mild aortic regurgitation. AORTIC ROOT: Normal diameter and appearance. Ascending aorta is normal in size. PULMONIC VALVE: Normal thickness and mobility. No stenosis. Mild to moderate regurgitation. PERICARDIUM: No evidence of pericardial effusion. IVC: IVC is dilated (2.4 cm), does not collapse. CONCLUSION: 1. Global left ventricular systolic function is normal; visually estimated ejection fraction is 60 to 65% 2. The left ventricle is mildly dilated 3. The right ventricle is severely dilated with reduced systolic function 4. Biatrial dilatation 5. Grade 2 diastolic dysfunction 6. Moderate tricuspid regurgitation 7. Moderately elevated right ventricular systolic pressure; RVSP 58 mmHg 8. Mild to moderate mitral regurgitation 9. Mild aortic valve regurgitation 10. Mild to moderate pulmonic valve regurgitation Adult Echocardiography Procedure Report Left Ventricle LVEDD (3.7 - 5.6 cm): 5.91 cm LVESD (2.2 - 4.0 cm): 3.76 cm LVIVS thickness (0.6 - 1.2 cm): 1.06 cm LVPW thickness (0.5 - 1.0 cm): 0.85 cm e': 0.17 m/s E - e': 3.96 LVOT Max Gradient: 2.39 mm[Hg] LVOT Area (cm2): 0.77 m/s Peak Velocity (LVOT): 0.77 m/s Mean Velocity (LVOT): 0.53 m/s LVOT Diameter 2.58 cm Left Atrium LA Volume Index (2D A2C): 71.17 ml/m2 Left Atrium Systolic Dimension: 4.89 cm Mitral Valve MV E to A Ratio: 1.74 Mitral Valve A-Wave Peak Velocity: 0.39 m/s Mitral Valve E-Wave Peak Velocity: 0.68 m/s Right Ventricle Aorta AO Root Diam: 3.60 cm Ascending Ao Diam: 3.35 cm Aortic Valve AoV Area (Peak Jacky): 3.08 cm2, 3.08 cm2 AoV Area (VTI): 3.33 cm2, 3.33 cm2 Deceleration Ripley: 0.95 m/s2 Pressure Half-Time: 834.13 ms Peak Velocity(Antegrade Flow): 1.31 m/s Peak Gradient(Antegrade Flow): 6.88 mm[Hg] Mean Velocity(Antegrade Flow): 0.81 m/s Mean Gradient(Antegrade Flow): 3.13 mm[Hg] Velocity Time Integral: 35.57 cm Tricuspid Valve Peak Velocity (Regurgitant Flow): 3.28 m/s, 2.79 m/s Pulmonic Valve Mean Gradient: 2.50 mm[Hg] Mean Velocity: 0.72 m/s Peak Velocity: 1.26 m/s, 1.19 m/s Peak Gradient: 5.71 mm[Hg], 6.34 mm[Hg] Right Atrium Right Atrium Systolic Pressure: 94.28 ml, 94.28 ml Dictated by: Amena Turner M.D. on 01/01/2025 at 12:32 Approved by: Amena Turner M.D. on 01/01/2025 at 12:37
== END 2025-01-01 09:52 | disposition home or self-care (01) ==
LOC: CARD 09:51
PROVIDERS: PCP Internal Medicine; Visit Provider Nurse Practitioner Family
DX: I08.0 Rheumatic disorders of both mitral and aortic valves (principal)
CPT/HCPCS: 93306

== ENCOUNTER 2025-04-18 08:20 | Outpatient (OUT) | payer OTHER, SELFPAY ==
--- OUTSIDE RECORDS SUMMARY | 2024-08-07 10:30 | XMS_ITS ---
Author Organization [facility] es Address [address] [place] [address] Care Team Providers Care Feed Project Engineer Name Role Phone Irina Mercado Primary Care Provider [phone] Natalie Gutierres Unavailable [phone] REASON FOR VISIT PROPHY Encounters Encounter Location Date Provider Diagnosis [facility] [address] [place] [address] 08/07/2024 Natalie Ragland Plan Of Treatment Next Appt Details Provider Name:Glenn Lakhani, 0 05/25/2025 08:30:00 AM, [address] [place], [address], Progress Notes * BHAVANA VIERADOB:1945 (79 yo M)Acc No.[id number]:08/07/2024 Patient: BHAVANA CROWLEY Provider: Saman Reaves :1945 A ge:78 Y S ex:Male Date:08/07/2024 Address:[address] [place], [place] [id number] Pcp:Irina Mercado Subjective: * Chief Complaints: * 1 . PROPHY. * Medical History: Objective: * Vitals: Assessment: Plan: * Treatment: * Images: * Electronic signature of Ashtyn Ragland on 04/18/2025 at 08:24 AM EDT Sign off status: Pending * Provider: Saman Reaves Date: 10/08/2023 Generated for Printi ng/Faxing/eTransmitting on: 0 04/18/2025 08:24 AM EDT
--- OUTSIDE RECORDS SUMMARY | 2025-02-08 07:00 | XMS_ITS ---
Author Organization [facility] es Address [address] [place] [address] Care Team Providers Care Registered Associate Name Role Phone Irina Mercado Primary Care Provider [phone] Natalie Gutierres Unavailable [phone] REASON FOR VISIT prophy Encounters Encounter Location Date Provider Diagnosis [facility] [address] [place] [address] 02/08/2025 Natalie Ragland Plan Of Treatment Next Appt Details Provider Name:Glenn Lakhani, 0 05/25/2025 08:30:00 AM, [address] [place], [address], Progress Notes * BHAVANA VIERADOB:1945 (79 yo M)Acc No.[id number]:02/08/2025 Patient: BHAVANA CROWLEY Provider: Saman Reaves :1945 A ge:79 Y S ex:Male Date:02/08/2025 Address:[address] [place], [place] [id number] Pcp:Irina Mercado Subjective: * Chief Complaints: * 1 . Prophy. * Medical History: Objective: * Vitals: Assessment: Plan: * Treatment: * Images: * Electronic signature of Ashtyn Ragland on 04/18/2025 at 08:25 AM EDT Sign off status: Pending * Provider: Saman Reaves Date: 02/08/2025 Generated for Printi ng/Faxing/eTransmitting on: 0 04/18/2025 08:25 AM EDT
--- OUTSIDE RECORDS SUMMARY | 2025-04-15 11:00 | XMS_ITS ---
Author Organization [facility] es Address [address] [place] [address] Care Team Providers Care Assistant Winemaker Name Role Phone Irina Mercado Primary Care Provider Mynor, Mitali Unavailable Unavailable REASON FOR VISIT PROPHY Encounters Encounter Location Date Provider Diagnosis [facility] [address] [place] [address] 04/15/2025 Mitali Lowe Plan Of Treatment Next Appt Details Provider Name:Glenn Lesvia, 0 05/25/2025 08:30:00 AM, [address] [place] [address], [address], Progress Notes * BHAVANA VIERADOB:1945 (79 yo M)Acc No.[id number]:04/15/2025 Patient: BHAVANA CROWLEY Provider: Zane Lowe :1945 A ge:79 Y S ex:Male Date:04/15/2025 Address:[address] [place], [place] [id number] Pcp:Irina Mercado Subjective: * Chief Complaints: * 1 . PROPHY. * Medical History: Objective: * Vitals: Assessment: Plan: * Treatment: * Images: * Electronic signature of Chepe Lowe on 04/18/2025 at 08:25 AM EDT Sign off status: Pending * Provider: Zane Lowe Date: 04/15/2025 Generated for yMriami ng/Faxing/eTransmitting on: 04/18/2025 08:25 AM EDT
--- OUTSIDE RECORDS SUMMARY | 2025-04-18 08:25 | XMS_ITS | Patient Health Record ---
Author Organization [facility] es Address [address] [place] [address] Care Team Providers Care Scouring Machine Operator Name Role Phone Emilipietro Irina Primary Care Provider [phone] Mitali Lowe Unavailable Unavailable Elham Webster, Kacie Unavailable [phone] Natalie Ragland Unavailable [phone] Yani Singleton Unavailable [phone] Reason For Referral No Information Encounters Encounter Location Date Provider Diagnosis [facility] [address] [place] [address] 06/08/2024 Irina Mercado [facility] [address] [place] [address] 05/09/2024 Kacie Elham Webster [facility] [address] [place] [address] 06/14/2024 Kacie Elham Webster Partial loss of teeth, unspecified cause, class I K08.401 [facility] [address] [place] [address] 06/21/2024 Kacie Elham Webster Other dental procedure status Z98.818 Assessments Encounter Date Diagnosis (ICD Code) Assessment Notes Treatment Notes Treatment Clinical Notes Section Notes 06/21/2024 Other dental procedure status (ICD-10 - Z98.818) 06/14/2024 Partial loss of teeth, unspecified cause, class I (ICD-10 - K08.401) Plan Of Treatment Next Appt Details Provider Name:Glenn Duffyzk, 0 05/25/2025 08:30:00 AM, [address] [facility] [place], [address], Insurance Providers Payer Name Payer Address Payer Phone Subscriber Number Group Number Insured Name Patient Relationship to Insured Coverage Start Date Coverage End Date [employer] Non-Par [address] [place] [phone] [id number] BHAVANA VIERA Self - patient is the insured 4 [employer] [address] [place] [phone] [id number] BHAVANA VIERA Self - patient is the insured 4 4
--- OUTSIDE RECORDS SUMMARY | 2025-04-18 08:28 | XMS_ITS | CCD ---
Author Organization [facility] Care Team Providers Care Gluer Name Role Phone Grzegorz Bui Unavailable HAO, [...] BALL, DR ZUNIGA Admitting Unavailable BALL, DR ZNUIGA Primary Care Unavailable BALL, DR ZUNIGA Consulting Unavailable JOSE ALFREDO, AGUSTINA Attending Unavailable JONA, INDIO Attending Unavailable JOSE ALFREDO, AGUSTINA Attending Unavailable JOSE ALFREDO, AGUSTINA Attending Unavailable LOUISA, BENITO Attending Unavailable Allergies Allergy Classification Reported Allergen(s) Allergy Type Date of Onset Reaction(s) Facility (1 source) Adhesive agent Drug allergy (disorder) 4 [facility] Repository (1 source) patient allergy list reviewed by nurse or physicia Propensity to adverse reactions 7 Comment:Done [facility] Other Medications Current Medications Medication Drug Class(es) Dates Sig (Normalized) Sig (Original) ALPRAZolam 0.25 mg oral tablet (12 sources) Benzodiazepine Start: 12-28-2023 take 1 tablet by mouth every eight hours as needed Alprazolam 0.25 mg tablet Active 0.25 MG PO Every 8 hours as needed December 28, 2023 12:00am Start: 04-04-2023 take 1 tablet by hellen th every eight hours as needed for anxiety ALPRAZolam 0.25 MG 1 tablet Orally every 8 hours as needed for anxiety Mar, Active take 1 tablet by hellen th every twelve hours ALPRAZolam 0.25 MG 1 tablet Orally Twice a day Active aspirin 81 mg delayed release oral tablet (12 sources) Platelet Aggregation Inhibitor, Nonsteroidal Anti-inflammatory Drug Start: 12-28-2023 Aspirin (Adult Lo w Dose Aspirin) 81 mg tablet,delayed release (DR/EC) Active 81 MG PO Daily December 28, 2023 12:00am take 1 tablet by hellen every twenty-four hours Aspirin Adult Low Dose 81 MG 1 tablet Orally Once a day Active clopidogrel 75 mg oral tablet (3 sources) P2Y12 Platelet Inhibitor Start: 03-21-2024 take 1 tablet by mouth once daily Clopidogrel (Plavix) 75 mg tablet Active 75 MG PO Daily March 21, 2024 12:00am furosemide 20 mg oral tablet (4 sources) Loop Diuretic Start: 12-28-2023 take 1 tablet by mouth once daily Furosemide 20 mg tablet Active 20 MG PO Daily December 28, 2023 12:00am lisinopril 40 mg oral tablet (4 sources) Angiotensin Converting Enzyme Inhibitor Start: 03-30-2024 End: 12-12-2024 take 1 tablet by mouth once daily Lisinopril 40 mg tablet Active 40 MG PO Daily 90 90 December 12, 2024 5:05pm mupirocin 0.02 mg/mg topical ointment (5 sources) RNA Synthetase Inhibitor Antibacterial Mupirocin 2 % 1 application Externally Twice a day Active NIFEdipine 90 mg osmotic 24 hr extended release oral tablet (6 sources) Dihydropyridine Calcium Channel Rosibel Start: 04-12-2024 take 1 tablet by mouth once daily Nifedipine 90 mg tablet extended release 24hr Active 90 MG PO Daily April 12, 2024 12:00am Start: 12-28-2023 End: 04-12-2024 take 1 tablet by mouth once daily Nifedipine 30 mg tablet extended release 24hr Discontinued 30 MG PO Daily December 28, 2023 12:00am April 12, 2024 12:00pm nitroglycerin 0.4 mg sublingual tablet (12 sources) Nitrate Vasodilator Start: 12-28-2023 Nitroglyce rin 0.4 mg tablet, sublingual Active 0.4 MG SUBLINGUAL every 5 to 15 minutes as needed December 28, 2023 12:00am Nitroglycerin 0. 4 MG as directed Sublingual Active Completed/Discontinued Medications Medication Drug Class(es) Dates Sig (Normalized) Sig (Original) atorvastatin 40 mg oral tablet (7 sources) HMG-CoA Reductase Inhibitor Start: 03-21-2024 End: 04-12-2024 take 1 tablet by mouth once daily Atorvastatin 40 mg tablet Discontinued 40 MG PO Daily 100 100 April 09, 2024 10:45pm April 12, 2024 8:08pm carvedilol 3.125 mg oral tablet (17 sources) alpha-Adrenergic Rosibel, beta-Adrenergic Rosibel Start: 04-12-2024 End: 05-01-2024 take 1 tablet by mouth twice daily Carvedilol 3.125 mg tablet Discontinued 3.125 MG PO Twice daily April 12, 2024 12:00am May 01, 2024 9:32am Start: 02-27-2024 End: 03-21-2024 take 1 tablet by mouth twice daily Carvedilol 3.125 mg tablet Discontinued 3.125 MG PO Twice daily 60 30 February 27, 2024 5:09pm March 21, 2024 3:59pm Start: 12-28-2023 End: 02-27-2024 take 1 tablet by mouth twice daily Carvedilol 6.25 mg tablet Discontinued 6.25 MG PO Twice daily December 28, 2023 12:00am February 27, 2024 5:09pm take 1 tablet by hellen th every twelve hours Carvedilol 6.25 MG 1 tablet with food Orally Twice a day Active pravastatin sodium 40 mg oral tablet (4 sources) HMG-CoA Reductase Inhibitor Start: 12-28-2023 End: 03-21-2024 take 1 tablet by mouth once daily Pravastatin 40 mg tablet Discontinued 40 MG PO Daily December 28, 2023 12:00am March 21, 2024 4:00pm Problems Active Problems Problem Classification Problem Date Documented Date Episodic/Chronic Allergic reactions (1 source) Inflammatory dermatosis; Translations: [Dermatitis, unspecified] Episodic Anxiety disorders (20 sources) Generalized anxiety disorder; Translations: [Generalized anxiety disorder] Chronic Cardiac dysrhythmias (17 sources) Nonsustained ventricular tachycardia ; Translations: [NSVT (nonsustained ventricular tachycardia)] 12-28-2023 Chronic Chronic kidney disease (2 sources) Chronic kidney disease; Translations: [Chronic kidney disease, unspecified] 12-31-2024 Chronic Coagulation and hemorrhagic disorders (1 source) Thrombocytopenic [...] Coronary arteriosclerosis; Translations: [Atherosclerotic heart disease of [place] coronary artery without angina pectoris] Onset: 10-17-2013 Chronic Comment on above: PCI/stent RCA - 03/24 24,Remote CABG Deficiency and other anemia (5 sources) Anemia, unspecified; Translations: [Anemia, unspecified] Onset: 06-30-2022 Episodic Deficiency and other anemia (4 sources) Anemia; Translations: [Anemia, unspecified] 12-30-2023 Episodic Disorders of lipid metabolism (20 sources) Hypercholesterolemia; Translations: [Pure hypercholesterolemia, unspecified] Onset: 10-17-2013 Chronic Esophageal disorders (2 sources) Esophageal reflux finding; Translations: [Esophageal reflux] Onset: 10-17-2013 Chronic Essential hypertension (20 sources) Essential hypertension; Translations: [Essential (primary) hypertension] Onset: 05-31-2022 Chronic Heart valve disorders (16 sources) Non-rheumatic mitral regurgitation ; Translations: [Nonrheumatic mitral (valve) insufficiency] Onset: 03-17-2024 Chronic Hyperplasia of prostate (3 sources) Lower urinary tract symptoms due to benign prostatic hypertrophy; Translations: [Benign prostatic hyperplasia with lower urinary tract symptoms] Onset: 10-17-2013 Chronic Hypertension with complications and secondary hypertension (4 sources) Chronic kidney disease due to hypertension; Translations: [Hypertensive chronic kidney disease with stage 1 through stage 4 chronic kidney disease, or unspecified chronic kidney disease] Onset: 04-06-2024 12-31-2024 Chronic Immunizations and screening for infectious disease (1 source) Vaccination given; Translations: [Encounter for immunization] Episodic Osteoarthritis (1 source) Osteoarthritis; Translations: [Polyosteoarthritis, unspecified] Onset: 11-21-2015 Chronic Other aftercare (4 sources) 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; Translations: [OTH 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 AND 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 INTERN CURRENT DRUG THERAPY] Onset: 05-31-2022 Episodic Other aftercare (1 source) Long-term current use of drug therapy; Translations: [Other custodial (current) drug therapy] Episodic Other injuries and conditions due to external causes (1 source) History of fall; Translations: [History of falling] Episodic Other non-epithelial cancer of skin (2 sources) Personal history of other malignant neoplasm of skin; Translations: [Basal cell carcinoma of scalp] Onset: 05-31-2022 Episodic Other nutritional; endocrine; and metabolic disorders (1 source) Unintentional weight loss; Translations: [Abnormal weight loss] 08-23-2024 Episodic Other screening for suspected conditions (not mental disorders or infectious disease) (9 sources) Encounter for screening for malignant neoplasm of prostate; Translations: [Patient encounter status] Onset: 12-23-2021 Episodic Elinor-; endo-; and myocarditis; cardiomyopathy (except that caused by tuberculosis or sexually transmitted disease) (2 sources) Cardiomyopathy in diseases classified elsewhere; Translations: [Cardiomyopathy in diseases classified elsewhere] Onset: 04-06-2024 Chronic Residual codes; unclassified (1 source) Requires influenza virus vaccination; Translations: [Need for prophylactic vaccination and inoculation, Influenza] Episodic Spondylosis; intervertebral disc disorders; other back problems (19 sources) Lumbar spondylosis; Translations: [Spondylosis without myelopathy or radiculopathy, lumbar region] Chronic Unclassified (2 sources) Other ventricular tachycardia; Translations: [Other ventricular tachycardia] Onset: 03-17-2024 Unclassified (1 source) Long-term current use of drug therapy; Translations: [Long-term (current) use of other medications] Onset: 11-23-2016 Past or Other Problems Problem Classification Problem Date Documented Date Episodic/Chronic Cardiac dysrhythmias (15 sources) Bradycardia, unspecified; Translations: [Bradycardia] Onset: 4 Episodic Coronary atherosclerosis and other heart disease (2 sources) Presence of aortocoronary bypass graft; Translations: [Presence of aortocoronary bypass graft] Onset: 4 Episodic Esophageal disorders (8 sources) Esophageal disorders; Translations: [Gastroesophageal reflux disease with esophagitis without hemorrhage] Nonspecific chest pain (1 source) Chest pain; Translations: [Chest pain, unspecified] Onset: 6 Episodic Other aftercare (1 source) 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; Translations: [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] Onset: 2 Episodic [...] Test Name Value Interpretation Reference Range Facility Office Visiton 03-26-2025 Follow-up visit [id number] Jeremiah Viera 1945 M Date Provider Department Center 03/26/2025 Val-AGUSTINA SOMMERS Family History Problem Relation Age of Onset Heart disease Father Heart disease Brother Heart disease Father's Brother Family Status - Relation Status Age at Mother Father Brother Father's Brother Level of Service:33972 DC OFFICE/OUTPATIENT ESTABLISHED LOW MDM 20 MIN Normal [facility] 36on 01-14-2025 36 Regarding echo from 01/01/2025: Benito Tan, TRINO Currie MA Please let him know his ECHO showed no significant changes from his prior ECHOs. Follow-up as scheduled. Thanks Spoke with patient and informed him of echo result per Solange. He will keep apt in March [address] Sommers. [facility] Office Visiton 10-30-2024 Follow-up visit [id number] Jermeiah Viera 1945 [facility] Provider Department Center 10/30/2024 AGUSTINA BALLESTEROS QUENTIN Jackson Family History Problem Relation Age of Onset Heart disease Father Heart disease Brother Heart disease Father's Brother Family Status - Relation Status Age at Father Brother Father's Brother Level of Service:11818 DC OFFICE/OUTPATIENT ESTABLISHED LOW MDM 20 MIN [facility] Office Visiton 08-01-2024 Follow-up visit [id number] Jeremiah Viera 1945 [facility] Provider Department Center 08/01/2024 BENITO CHAVEZ Family History Problem Relation Age of Onset Heart disease Father Heart disease Brother Heart disease Father's Brother Family Status - Relation Status Age at Father Brother Father's Brother Level of Service:45833 DC OFFICE/OUTPATIENT ESTABLISHED LOW MDM 20 MIN Reason for Visit and Comments: Bradycardia [018341] Coronary Artery Disease [187] Valve Disorder [3372] [facility] Office Visiton 05-01-2024 Follow-up visit [id number] Jeremiah Viera 1945 [facility] Provider Department Center 05/01/2024 AGUSTINA BALLESTEROS QUENTIN Jackson Family History Problem Relation Age of Onset Heart disease Father Heart disease Brother Heart disease Father's Brother Family Status - Relation Status Age at Father Brother Father's Brother Level of Service:05384 DC OFFICE/OUTPATIENT ESTABLISHED LOW MDM 20 MIN [facility] Basophils Auto (Bld) [#/Vol] on 04-26-2024 Basophils (Bld) [#/Vol] 0.1 10 3/uL 0.0-0.1 [facility] Basophils/100 WBC Auto (Bld) on 04-26-2024 Basophils/100 WBC (Bld) 1.2 % 0.2-2.0 [facility] Eosinophils/100 WBC Auto (Bl d)on 04-26-2024 Eosinophils/100 WBC (Bld) 2.8 % 0.9-7.0 [facility] Erythrocyte distribution wid th Auto (RBC) [Ratio]on 04-26-2024 Erythrocyte distribution width (RBC) [Ratio] 12.5 % 11.0-15.0 [facility] Hematocrit Auto (Bld) [Volum e fraction]on 04-26-2024 Hematocrit (Bld) [Volume fraction] 40.9 % Low 42.0-54.0 [facility] Hemoglobin [Mass/volume] in Bloodon 04-26-2024 Hemoglobin (Bld) [Mass/Vol] 13.8 g/dL Low 14.0-18.0 [facility] Iron binding capacity [Mass/ volume] in Serum or Plasmaon 04-26-2024 Iron binding capacity [Mass/Vol] 241.0 ug/dL Low 250.0-450.0 [facility] Iron saturation [Mass Fracti on] in Serum or Plasmaon 04-26-2024 Iron saturation [Mass fraction] 40.2 % [facility] Laboratory - Chemistry and C hemistry - challengeon 04-26-2024 Cobalamin (Vitamin B12) [Mass/Vol] 836.0 pg/mL 193.0-986.0 [facility] Ferritin [Mass/Vol] 318.0 ng/mL 26.0-388.0 [facility] Iron [Mass/Vol] 97.0 ug/dL 65.0-175.0 [facility] - Hematology and Cell countson 04-26-2024 Immature granulocytes/100 WBC (Bld) 0.3 % 0.0-0.5 [facility] Leukocytes [#/volume] correc mika for nucleated erythrocytes in Blood by Automated counon 04-26-2024 WBC corrected for nucl RBC Auto (Bld) [#/Vol] 6.1 10 3/uL 4.0-11.0 [facility] Lymphocytes Auto (Bld) [#/Vo l]on 04-26-2024 Lymphocytes (Bld) [#/Vol] 1.4 10 3/uL 1.2-3.8 [facility] Lymphocytes/100 WBC Auto (Bl d)on 04-26-2024 Lymphocytes/100 WBC (Bld) 23.0 % 20.5-60.0 [facility] MCH Auto (RBC) [Entitic mass ]on 04-26-2024 MCH (RBC) [Entitic mass] 31.9 pg 25.9-34.0 [facility] MCHC Auto (RBC) [Mass/Vol]on 04-26-2024 MCHC (RBC) [Mass/Vol] 33.7 g/dL 29.9-35.2 [facility] MCV Auto (RBC) [Entitic vol] on 04-26-2024 MCV (RBC) [Entitic vol] 94.5 fL High 80.0-94.0 [facility] Monocytes Auto (Bld) [#/Vol] on 04-26-2024 Monocytes (Bld) [#/Vol] 0.6 10 3/uL 0.3-0.8 [facility] Monocytes/100 WBC Auto (Bld) on 04-26-2024 Monocytes/100 WBC (Bld) 10.2 % 1.7-12.0 [facility] Neutrophils Auto (Bld) [#/Vo l]on 04-26-2024 Neutrophils (Bld) [#/Vol] 3.8 10 3/uL 1.4-6.5 [facility] Neutrophils/100 WBC Auto (Bl d)on 04-26-2024 Neutrophils/100 WBC (Bld) 62.5 % 43.0-75.0 [facility] No Panel Informationon 04-26 Eosinophils # (Auto) 0.2 10 3/uL 0.0-0.7 Fir [facility] Folate 23.70 ng/mL 8.60-58.90 [facility] Immature Granulocyte # (Auto) 0.02 10 3/uL 0.00-0.03 [facility] Platelet mean volume Auto (B ld) [Entitic vol]on 04-26-2024 Platelet mean volume (Bld) [Entitic vol] 10.7 fL 9.5-13.5 [facility] Platelets Auto (Bld) [#/Vol] on 04-26-2024 Platelets (Bld) [#/Vol] 154 10 3/uL 150-450 [facility] RBC Auto (Bld) [#/Vol]on RBC (Bld) [#/Vol] 4.33 10 6/uL Low 4.70-6.10 [facility] 37on 04-06-2024 37 Increase Nifedipine to 90 mg daily (1 1/2 tablets of your dose that you have now) next bottle will be 90 mg daily. Monitor b/p at home and goal is most of the time to be < 130/80 Normal [facility] Follow-Upon 04-06-2024 Follow-Up [id number] Jeremiah Viera 1945 M Date Provider Department Center 04/06/2024 INDIO CONNELLY CARD [facility] Family History Problem Relation Age of Onset Heart disease Father Heart disease Brother Heart disease Father's Brother Family Status - Relation Status Age at Father Brother Father's Brother Level of Service:99965 DC OFFICE/OUTPATIENT ESTABLISHED LOW MDM 20 MIN Normal [facility] Basophils Auto (Bld) [#/Vol] on 03-16-2024 Basophils (Bld) [#/Vol] 0.1 10 3/uL 0.0-0.1 [facility] Basophils/100 WBC Auto (Bld) on 03-16-2024 Basophils/100 WBC (Bld) 0.8 % 0.2-2.0 [facility] Eosinophils/100 WBC Auto (Bl d)on 03-16-2024 Eosinophils/100 WBC (Bld) 2.2 % 0.9-7.0 [facility] Erythrocyte distribution wid th Auto (RBC) [Ratio]on 03-16-2024 Erythrocyte distribution width (RBC) [Ratio] 12.4 % 11.0-15.0 [facility] Estimated glomerular filtrat ion rate (GFR) non- Americanon 03-16-2024 GFR/1.73 sq M.predicted among non-blacks MDRD (S/P/Bld) [Vol rate/Area] 59 mL/min/{1.73_m2} Low >=60 [facility] Globulin Calc (S) [Mass/Vol] on 03-16-2024 Globulin (S) [Mass/Vol] 2.9 g/dL [facility] Hematocrit Auto (Bld) [Volum e fraction]on 03-16-2024 Hematocrit (Bld) [Volume fraction] 39.7 % Low 42.0-54.0 [facility] Hemoglobin [Mass/volume] in Bloodon 03-16-2024 Hemoglobin (Bld) [Mass/Vol] 13.5 g/dL Low 14.0-18.0 [facility] INR in Platelet poor plasma by Coagulation assayon 03-16-2024 INR Coag (PPP) [Relative time] 0.99 {INR} [facility] Comment on above: DESIRED INR:2.0-3.0 CONDITIONS NOT LISTED BELOW2.5-3.5 FOR PROSTHETIC HEART VALVE REPLACEMENT2.5-3.5 RECURRENT THROMBOSIS Laboratory - Chemistry and C hemistry - challengeon 03-16-2024 Albumin [Mass/Vol] 4.0 g/dL 3.4-5.0 [facility] ALP [Catalytic activity/Vol] 76 U/L 46-116 [facility] ALT [Catalytic activity/Vol] 21 U/L 16-63 [facility] AST [Catalytic activity/Vol] 20 U/L 15-37 [facility] Bilirubin [Mass/Vol] 0.6 mg/dL 0.2-1.0 [facility] Calcium [Mass/Vol] 9.1 mg/dL 8.5-10.1 [facility] Chloride [Moles/Vol] 106 mmol/L 98-107 [facility] CO2 [Moles/Vol] 27.0 mmol/L 21.0-32.0 [facility] Creatinine [Mass/Vol] 1.19 mg/dL 0.70-1.30 [facility] GFR/1.73 sq M.predicted MDRD (S/P/Bld) [Vol rate/Area] mL/min/{1.73_m2} >=60 [facility] Glucose [Mass/Vol] 140 mg/dL High 74-106 [facility] Natriuretic peptide B (Bld) [Mass/Vol] 346.0 pg/mL <=1800.0 [facility] Potassium [Moles/Vol] 3.9 mmol/L 3.5-5.1 [facility] Protein [Mass/Vol] 6.9 g/dL 6.4-8.2 [facility] Sodium [Moles/Vol] 142 mmol/L 136-145 [facility] Urea nitrogen [Mass/Vol] 22.0 mg/dL High 7.0-18.0 [facility] Urea nitrogen/Creatinine [Mass ratio] 18.5 mg/mg [facility] Laboratory - Hematology and Cell countson 03-16-2024 Immature granulocytes/100 WBC (Bld) 0.4 % 0.0-0.5 [facility] Leukocytes [#/volume] correc mika for nucleated erythrocytes in Blood by Automated counon 03-16-2024 WBC corrected for nucl RBC Auto (Bld) [#/Vol] 7.9 10 3/uL 4.0-11.0 [facility] Lymphocytes Auto (Bld) [#/Vo l]on 03-16-2024 Lymphocytes (Bld) [#/Vol] 1.6 10 3/uL 1.2-3.8 [facility] Lymphocytes/100 WBC Auto (Bl d)on 03-16-2024 Lymphocytes/100 WBC (Bld) 20.8 % 20.5-60.0 [facility] MCH Auto (RBC) [Entitic mass ]on 03-16-2024 MCH (RBC) [Entitic mass] 32.8 pg 25.9-34.0 [facility] MCHC Auto (RBC) [Mass/Vol]on 03-16-2024 MCHC (RBC) [Mass/Vol] 34.0 g/dL 29.9-35.2 [facility] MCV Auto (RBC) [Entitic vol] on 03-16-2024 MCV (RBC) [Entitic vol] 96.4 fL High 80.0-94.0 [facility] Monocytes Auto (Bld) [#/Vol] on 03-16-2024 Monocytes (Bld) [#/Vol] 0.6 10 3/uL 0.3-0.8 [facility] Monocytes/100 WBC Auto (Bld) on 03-16-2024 Monocytes/100 WBC (Bld) 8.0 % 1.7-12.0 [facility] Neutrophils Auto (Bld) [#/Vo l]on 03-16-2024 Neutrophils (Bld) [#/Vol] 5.3 10 3/uL 1.4-6.5 [facility] Neutrophils/100 WBC Auto (Bl d)on 03-16-2024 Neutrophils/100 WBC (Bld) 67.8 % 43.0-75.0 [facility] No Panel Informationon 03-16 Eosinophils # (Auto) 0.2 10 3/uL 0.0-0.7 [facility] Immature Granulocyte # (Auto) 0.03 10 3/uL 0.00-0.03 [facility] Troponin I High Sensitivity 12.2 pg/mL 4.0-76.1 [facility] Comment on above: CUT-OFF POINTS HAVE BEEN ESTABLISHED BASED ON THE FOURTHIVERSAL DEFINITION OF MYOCARDIAL INFARCTION. THE UPPERREFERENCE LIMIT (URL) OF TROPONIN, DEFINED THE 99THPERCENTILE OF cTnI DISTRIBUTION IN A REFERENCE POPULATION,HAS BEEN CONFIRMED THE DECISION THRESHOLD FOR MIDIAGNOSIS.99TH PERCENTILE = 76.2 PG/MLNOTE: HIGH-SENSITIVITY TROPONIN ASSAY IS NOT INTENDED TO BEUSED IN ISOLATION BUT SHOULD BE INTERPRETED IN CONJUNCTIONWITH OTHER DIAGNOSTIC AND CLINICAL INFORMATION. Platelet mean volume Auto (B ld) [Entitic vol]on 03-16-2024 Platelet mean volume (Bld) [Entitic vol] 11.0 fL 9.5-13.5 [facility] Platelets Auto (Bld) [#/Vol] on 03-16-2024 Platelets (Bld) [#/Vol] 163 10 3/uL 150-450 [facility] Prothrombin time (PT)on 03-05 PT Coag (PPP) [Time] 10.5 s 9.0-11.6 [facility] RBC Auto (Bld) [#/Vol]on RBC (Bld) [#/Vol] 4.12 10 6/uL Low 4.70-6.10 [facility] Serum or plasma albumin/glob ulin mass ratioon 03-16-2024 Albumin/Globulin [Mass ratio] 1.4 {ratio} [facility] Serum or plasma anion gap de terminationon 03-16-2024 Anion gap [Moles/Vol] 12.9 mmol/L [facility] Basic Metabolic Panelon 12-04 Calcium [Mass/Vol] 9.1991969 mg/dL 8.5-10 .1 mg/dL [facility] Other CO2 [Moles/Vol] 27.38798694 mmol/L 21.0-3 2.0 mmol/L [facility] Other Creatinine [Mass/Vol] 1.82172380 mg/dL 0.70-1.30 mg/dL [facility] Other Potassium [Moles/Vol] 4.03879302 mmol/L 3.5-5.1 mmol/L [facility] Other Urea nitrogen [Mass/Vol] 15.6780669 mg/dL 7.0-18.0 mg/dL [facility] Other Basic Metabolic Panel see note [facility] Other Basic Metabolic Panel 144 mmol/L 136-145 mmol/L [facility] Other Basic Metabolic Panel 96 mg/dL 74-106 mg/dL [facility] Other Basic Metabolic Panel >60 mL/min/1.73m2 >=60 mL/min/1.73m2 [facility] Other CBC AUTO DIFFon 12-17-2022 BASO # 0.0 103/ul Normal 0.0-0.1 [facility] Comment on above: Performed By: #### C BC #### [facility] [address] [place] [address] Dr. Abdulaziz Wallis Basophils/100 WBC (Bld) 0.7 % Normal 0.2-2.0 [facility] Comment on above: Performed By: #### C BC #### [facility] [address] [place] [address] Dr. Abdulaziz Wallis EO # 0.2 103/ul Normal 0.0-0.7 [facility] Comment on above: Performed By: #### C BC #### [facility] [address] [place] [address] Dr. Abdulaziz Wallis Eosinophils/100 WBC (Bld) 3.9 % Normal 0.9-7.0 [facility] Comment on above: Performed By: #### C BC #### [facility] [address] [place] [address] Dr. Abdulaziz Wallis Erythrocyte distribution width (RBC) [Ratio] 13.0 % Normal 11.0-15.0 [facility] Comment on above: Performed By: #### C BC #### [facility] [address] [place] [address] Dr. Abdulaziz Wallis Hematocrit (Bld) [Volume fraction] 41.1 % Critically low 42.0-54.0 [facility] Comment on above: Performed By: #### C BC #### [facility] [address] [place] [address] Dr. Abdulaziz Wallis Hemoglobin (Bld) [Mass/Vol] 14.0 g/dL Normal 14.0-18.0 [facility] Comment on above: Performed By: #### C BC #### [facility] [address] [place] [address] Dr. Abdulaziz Wallis IG # 0.03 10e3/ul Normal 0.00-0.03 [facility] Comment on above: Performed By: #### C BC #### [facility] [address] [place] [address] Dr. Abdulaziz Wallis IG % 0.5 % Normal 0.0-0.5 [facility] Comment on above: Performed By: #### C BC #### [facility] [address] [place] [address] Dr. Abdulaziz Wallis LYMPH # 1.3 103/ul Normal 1.2-3.8 [facility] Comment on above: Performed By: #### C BC #### [facility] [address] [place] [address] Dr. Abdulaziz Wallis Lymphocytes/100 WBC (Bld) 23.6 % Normal 20.5-60.0 [facility] Comment on above: Performed By: #### C BC #### [facility] [address] [place] [address] Dr. Abdulaziz Wallis MANUAL DIFF REQ NO Normal [facility] Comment on above: Performed By: #### C BC #### [facility] [facility] [address] [place] [address] Dr. Abdulaziz Wallis MCH (RBC) [Entitic mass] 32.7 pg Normal 25.9-34.0 [facility] Comment on above: Performed By: #### C BC #### [facility] [address] [place] [address] Dr. Abdulaziz Wallis MCHC (RBC) [Mass/Vol] 34.1 g/dL Normal 29.9-35.2 [facility] Comment on above: Performed By: #### C BC #### [facility] [address] [place] [address] Dr. Abdulaziz Wallis MCV (RBC) [Entitic vol] 96.0 fL Critically high 80.0-94.0 [facility] Comment on above: Performed By: #### C BC #### [facility] [address] [place] [address] Dr. Abdulaziz Wallis MONO # 0.6 103/ul Normal 0.3-0.8 [facility] Comment on above: Performed By: #### C BC #### [facility] [address] [place] [address] Dr. Abdulaziz Wallis Monocytes/100 WBC (Bld) 11.0 % Normal 1.7-12.0 [facility] Comment on above: Performed By: #### C BC #### [facility] [address] [place] [address] Dr. Abdulaziz Wallis NEUT # 3.4 103/ul Normal 1.4-6.5 [facility] Comment on above: Performed By: #### C BC #### [facility] [address] [place] [address] Dr. Abdulaziz Wallis Neutrophils/100 WBC (Bld) 60.3 % Normal 43.0-75.0 [facility] Comment on above: Performed By: #### C BC #### [facility] [address] [address] [address] Abdulaziz Wallis Platelet mean volume (Bld) [Entitic vol] 10.4 fL Normal 9.5-13.5 [facility] Comment on above: Performed By: #### C BC #### [facility] [address] [address] [address] Abdulaziz Wallis PLT 158 103/ul Normal 150-450 [facility] Comment on above: Performed By: #### C BC #### [facility] [address] [address] [address] Abdulaziz Wallis RBC 4.28 106/ul Critically low 4.70-6.10 [facility] Comment on above: Performed By: #### C BC #### [facility] [address] [address] [address] Abdulaziz Wallis WBC 5.6 103/ul Normal 4.0-11.0 [facility] Comment on above: Performed By: #### C BC #### [facility] [address] [address] [address] Abdulaziz Wallis Complete Blood Count and Dif deo 12-17-2022 Anisocytosis Ql (Bld) [facility] [employer] Other Basophilic stippling LM Ql (Bld) [facility] [employer] Other RBC morphology finding Nom (Bld) [facility] [employer] Other Complete Blood Count and Diff [facility] [employer] Other ECHOCARDIO M/2D COMPLETEon 0 12-17-2022 ECHOCARDIO M/2D COMPLETE Patient: JEREMIAH VIERA Exam Date: 12/17/2022 : 1945 Gender:M Ordering : DR TEDDY QUINONES M.D. Admission #: [id number] Family : DR GRZEGORZ BUI DMarcie Order #: [id number] CLICK HERE TO VIEW EXAM ECHOCARDIOGRAM REPORT [...] Kovacs M.D. on 12/17/2022 at 19:52 Normal [facility] LIPID PROFILEon 12-17-2022 CHOL-HDL RATIO NORM SEE BELOW Normal [facility] Comment on above: Result Comment: 3.3 - 4.4 LOW RISK 4.4 - 7.1 AVERAGE RISK 7.1 - 11.0 MODERATE RISK >11.0 HIGH RISK Performed By: #### L SHEA GARSIA, BMP #### [facility] [address] [place] [address] Dr. Abdulaziz Wallis Cholesterol [Mass/Vol] 127 mg/dL <=200 mg/dL [facility] Comment on above: Performed By: #### L SHEA GARSIA, BMP #### [facility] [address] [address] [address] Abdulaziz Wallis Cholesterol in HDL [Mass/Vol] 48 mg/dL 40-60 mg/dL [facility] Comment on above: Performed By: #### L ADY ALT, BMP #### [facility] [address] [place] [address] Dr. Abdulaziz Wallis Cholesterol in LDL [Mass/Vol] 57.6 mg/dL Normal [facility] Comment on above: Performed By: #### L IPID, ALT, BMP #### [facility] [address] [address] [address] Abdulaziz Wallis Cholesterol.total/Ch olesterol in HDL [Mass ratio] 2.6 {ratio} [facility] Comment on above: Performed By: #### L IPID, ALT, BMP #### [facility] [address] [address] [address] Abdulaziz Wallis HDL NORMAL > or = 60 mg/dl - LOW CARDIOVASCULAR RISK <40 mg/dl - HIGH CARDIOVASCULAR RISK Normal [facility] Comment on above: Performed By: #### L IPID, ALT, BMP #### [facility] [address] [address] [address] Abdulaziz Wallis LDL CALC NORMAL SEE BELOW Normal [facility] Comment on above: Result Comment: <100 mg/dl OPTIMAL 100 - 129 mg/dl NEAR OR ABOVE OPTIMAL 130 - 159 mg/dl BORDERLINE HIGH 160 - 189 mg/dl HIGH >190 mg/dl VERY HIGH Performed By: #### L IPID, ALT, BMP #### [facility] [address] [address] [address] Abdulaziz Wallis Triglyceride [Mass/Vol] 107 mg/dL <=150 mg/dL [facility] Comment on above: Performed By: #### L IPID, ALT, BMP #### [facility] [address] [address] [address] Abdulaziz Wallis VLDL CALC 21.4 mg/dL Normal [facility] Comment on above: Performed By: #### L IPID, ALT, BMP #### [facility] [address] [address] [address] Abdulaziz Wallis Lipid Panelon 12-17-2022 Lipid Panel > or = 60 mg/dl - LOW CARDIOVASCULAR RISK <40 mg/dl - HIGH CARDIOVASCULAR RISK [employer] Other Lipid Panel SEE BELOW [employer] Other Lipid Panel 57.6 mg/dL [employer] Other Lipid Panel 21.4 mg/dL [employer] [facility] [employer] Other PROF CHEM 8 (BAS METB)on Anion gap [Moles/Vol] 14.9 mmol/L [facility] Comment on above: Performed By: #### L IPID, ALT, BMP ####[facility] [address] [address]Dr. Abdulaziz Wallis Calcium [Mass/Vol] 9.8 mg/dL Normal 8.5-10.1 [facility] Comment on above: Performed By: #### L IPID, ALT, BMP ####[facility] [address] [place], [place] [address]Dr. Abdulaziz Wallis Chloride [Moles/Vol] 106 mmol/L 98-107 mmol/L [facility] Comment on above: Performed By: #### L IPID, ALT, BMP ####[facility] [address] [place], [place] [address]Dr. Abdulaziz Wallis CO2 [Moles/Vol] 27.3 mmol/L Normal 21.0-32.0 [facility] Comment on above: Performed By: #### L IPID, ALT, BMP ####[facility] [address] [place], [place] [address]Dr. Abdulaziz Wallis Creatinine [Mass/Vol] 1.02 mg/dL Normal 0.70-1.30 [facility] Comment on above: Performed By: #### L IPID, ALT, BMP ####[facility] [address] [place], [place] [address]Dr. Abdulaziz Wallis EGFR-AF MONEGASQUE >60 Normal >=60 [facility] Comment on above: Performed By: #### L IPID, ALT, BMP ####[facility] [address] [place], [place] [address]Dr. Abdulaziz Wallis EGFR-NON AF MONEGASQUE >60 Normal >=60 [facility] Comment on above: Performed By: #### L IPID, ALT, BMP ####[facility] [address] [place], [place] [address]Dr. Abdulaziz Wallis Glucose [Mass/Vol] 96 mg/dL Normal 74-106 [facility] Comment on above: Performed By: #### L IPID, ALT, BMP ####[facility] [address] [address]Dr. Abdulaziz Wallis Potassium [Moles/Vol] 4.2 mmol/L Normal 3.5-5.1 [facility] Comment on above: Performed By: #### L IPID, ALT, BMP ####[facility] [address] [address]Dr. Abdulaziz Wallis Sodium [Moles/Vol] 144 mmol/L Normal 136-145 [facility] Comment on above: Performed By: #### L IPID, ALT, BMP ####[facility] [address] [address]Dr. Abdulaziz Wallis Urea nitrogen [Mass/Vol] 15.0 mg/dL Normal 7.0-18.0 [facility] Comment on above: Performed By: #### L IPID, ALT, BMP ####[facility] [address] [address]Dr. Abdulaziz Wallis Urea nitrogen/Creatinine [Mass ratio] 14.7 mg/mg [facility] Comment on above: Performed By: #### L IPID, ALT, BMP ####[facility] [address] [address]Dr. Abdulaziz Wallis SGPTon 12-17-2022 ALT [Catalytic activity/Vol] 30 U/L 16-63 U/L [facility] Comment on above: Performed By: #### L IPID, ALT, BMP #### [facility] [address] [address] [address] Abdulaziz Wallis CBC AUTO DIFFon 06-30-2022 BASO # 0.1 103/ul Normal 0.0-0.1 [facility] Comment on above: Performed By: #### C BC ####[facility] [address] [address]Dr. Abdulaziz Wallis Basophils/100 WBC (Bld) 1.2 % Normal 0.2-2.0 [facility] Comment on above: Performed By: #### C BC ####[facility] [address] [address]Dr. Abdulaziz Bimal EO # 0.3 103/ul Normal 0.0-0.7 [facility] Comment on above: Performed By: #### C BC ####[facility] [address] [place], [place] [address]Dr. Abdulaziz Wallis Eosinophils/100 WBC (Bld) 4.7 % Normal 0.9-7.0 [facility] Comment on above: Performed By: #### C BC ####[facility] [address] [place], [place] [address]Dr. Abdulaziz Wallis Erythrocyte distribution width (RBC) [Ratio] 13.1 % Normal 11.0-15.0 [facility] Comment on above: Performed By: #### C BC ####[facility] [address] [place], [place] [address]Dr. Abdulaziz Wallis Hematocrit (Bld) [Volume fraction] 38.2 % Critically low 42.0-54.0 [facility] Comment on above: Performed By: #### C BC ####[facility] [address] [place], [place] [address]Dr. Abdulaziz Wallis Hemoglobin (Bld) [Mass/Vol] 12.8 g/dL Critically low 14.0-18.0 [facility] Comment on above: Performed By: #### C BC ####[facility] [address] [place], [place] [address]Dr. Abdulaziz Wallis IG # 0.04 10e3/ul Critically high 0.00-0.03 [facility] Comment on above: Performed By: #### C BC ####[facility] [address] [place], [place] [address]Dr. Abdulaziz Wallis IG % 0.7 % Critically high 0.0-0.5 [facility] Comment on above: Performed By: #### C BC ####[facility] [address] [place], [place] [address]Dr. Abdulaziz Wallis LYMPH # 1.8 103/ul Normal 1.2-3.8 [facility] Comment on above: Performed By: #### C BC ####[facility] [address] [address]Dr. Deechris Wallis Lymphocytes/100 WBC (Bld) 29.8 % Normal 20.5-60.0 [facility] Comment on above: Performed By: #### C BC ####[facility] [address] [address]DrAliyah Wallis MANUAL DIFF REQ NO Normal [facility] Comment on above: Performed By: #### C BC ####[facility] [address] [address]Dr. Abdulaziz Wallis MCH (RBC) [Entitic mass] 32.7 pg Normal 25.9-34.0 [facility] Comment on above: Performed By: #### C BC ####[facility] [address] [place], [place] [address]Dr. Abdulaziz Wallis MCHC (RBC) [Mass/Vol] 33.5 g/dL Normal 29.9-35.2 [facility] Comment on above: Performed By: #### C BC ####[facility] [address] [place], [place] [address]DrAliyah Wallis MCV (RBC) [Entitic vol] 97.7 fL Critically high 80.0-94.0 [facility] Comment on above: Performed By: #### C BC ####[facility] [address] [place], [place] [address]Dr. Abdulaziz Wallis MONO # 0.8 103/ul Normal 0.3-0.8 [facility] Comment on above: Performed By: #### C BC ####[facility] [address] [place], [place] [address]DrAliyah Wallis Monocytes/100 WBC (Bld) 12.9 % Critically high 1.7-12.0 [facility] Comment on above: Performed By: #### C BC ####[facility] [address] [place], [place] [address]Dr. Abdulaziz Wallis NEUT # 3.0 103/ul Normal 1.4-6.5 [facility] Comment on above: Performed By: #### C BC ####[facility] [address] [address]Dr. Abdulaziz Wallis Neutrophils/100 WBC (Bld) 50.7 % Normal 43.0-75.0 [facility] Comment on above: Performed By: #### C BC ####[facility] [address] [address]Dr. Abdulaziz Wallis Platelet mean volume (Bld) [Entitic vol] 10.9 fL Normal 9.5-13.5 [facility] Comment on above: Performed By: #### C BC ####[facility] [address] [address]Dr. Abdulaziz Wallis PLT 145 103/ul Critically low 150-450 [facility] Comment on above: Performed By: #### C BC ####[facility] [address] [address]Dr. Abdulaziz Wallis RBC 3.91 106/ul Critically low 4.70-6.10 [facility] Comment on above: Performed By: #### C BC ####[facility] [address] [address]Dr. Abdulaziz Wallis WBC 5.9 103/ul Normal 4.0-11.0 [facility] Comment on above: Performed By: #### C BC ####[facility] [address] [address]Dr. Abdulaziz Wallis VITAMIN B12on 06-30-2022 Cobalamin (Vitamin B12) [Mass/Vol] 793.0 pg/mL Normal 193.0-986.0 [facility] Comment on above: Performed By: #### V ITB12 ####[facility] [address] [place], [place] [address]Dr. Abdulaziz Wallis CBC AUTO DIFFon 03-30-2022 BASO # 0.1 103/ul Normal 0.0-0.1 [facility] Comment on above: Performed By: #### C BC #### [facility] [address] [place] [address] Dr. Abdulaziz Wallis Basophils/100 WBC (Bld) 1.0 % Normal 0.2-2.0 [facility] Comment on above: Performed By: #### C BC #### [facility] [address] [place] [address] Dr. Abdulaziz Wallis EO # 0.3 103/ul Normal 0.0-0.7 [facility] Comment on above: Performed By: #### C BC #### [facility] [address] [place] [address] Dr. Abdulaziz Wallis Eosinophils/100 WBC (Bld) 3.5 % Normal 0.9-7.0 [facility] Comment on above: Performed By: #### C BC #### [facility] [address] [place] [address] Dr. Abdulaziz Wallis Erythrocyte distribution width (RBC) [Ratio] 12.5 % Normal 11.0-15.0 [facility] Comment on above: Performed By: #### C BC #### [facility] [address] [place] [address] Dr. Abdulaziz Wallis Hematocrit (Bld) [Volume fraction] 39.6 % Critically low 42.0-54.0 [facility] Comment on above: Performed By: #### C BC #### [facility] [address] [place] [address] Dr. Abdulaziz Wallis Hemoglobin (Bld) [Mass/Vol] 13.8 g/dL Critically low 14.0-18.0 [facility] Comment on above: Performed By: #### C BC #### [facility] [address] [place] [address] Dr. Abdulaziz Wallis IG # 0.03 10e3/ul Normal 0.00-0.03 [facility] Comment on above: Performed By: #### C BC #### [facility] [address] [place] [address] Dr. Abdulaziz Wallis IG % 0.4 % Normal 0.0-0.5 [facility] Comment on above: Performed By: #### C BC #### [facility] [address] [place] [address] Dr. Abdulaziz Wallis LYMPH # 2.1 103/ul Normal 1.2-3.8 [facility] Comment on above: Performed By: #### C BC #### [facility] [address] [place] [address] Dr. Abdulaziz Wallis Lymphocytes/100 WBC (Bld) 26.1 % Normal 20.5-60.0 [facility] Comment on above: Performed By: #### C BC #### [facility] [address] [place] [address] Dr. Abdulaziz Wallis MANUAL DIFF REQ NO Normal [facility] Comment on above: Performed By: #### C BC #### [facility] [address] [place] [address] Dr. Abdulaziz Wallis MCH (RBC) [Entitic mass] 33.4 pg Normal 25.9-34.0 [facility] Comment on above: Performed By: #### C BC #### [facility] [address] [place] [address] Dr. Abdulaziz Wallis MCHC (RBC) [Mass/Vol] 34.8 g/dL Normal 29.9-35.2 [facility] Comment on above: Performed By: #### C BC #### [facility] [address] [place] [address] Dr. Abdulaziz Wallis MCV (RBC) [Entitic vol] 95.9 fL Critically high 80.0-94.0 [facility] Comment on above: Performed By: #### C BC #### [facility] [address] [place] [address] Dr. Abdulaizz Wallis MONO # 0.9 103/ul Critically high 0.3-0.8 [facility] Comment on above: Performed By: #### C BC #### [facility] [address] [place] [address] Dr. Abdulaziz Wallis Monocytes/100 WBC (Bld) 10.9 % Normal 1.7-12.0 [facility] Comment on above: Performed By: #### C BC #### [facility] [address] [place] [address] Dr. Abdulaziz Wallis NEUT # 4.7 103/ul Normal 1.4-6.5 [facility] Comment on above: Performed By: #### C BC #### [facility] [address] [place] [address] Dr. Abdulaziz Wallis Neutrophils/100 WBC (Bld) 58.1 % Normal 43.0-75.0 [facility] Comment on above: Performed By: #### C BC #### [facility] [address] [place] [address] Dr. Abdulaziz Wallis Platelet mean volume (Bld) [Entitic vol] 10.6 fL Normal 9.5-13.5 [facility] Comment on above: Performed By: #### C BC #### [facility] [address] [place] [address] Dr. Abdulaziz Wallis PLT 169 103/ul Normal 150-450 [facility] Comment on above: Performed By: #### C BC #### [facility] [address] [place] [address] Dr. Abdulaziz Wallis RBC 4.13 106/ul Critically low 4.70-6.10 [facility] Comment on above: Performed By: #### C BC #### [facility] [address] [place] [address] Dr. Abdulaziz Wallis WBC 8.1 103/ul Normal 4.0-11.0 [facility] Comment on above: Performed By: #### C BC #### [facility] [address] [place] [address] Dr. Abdulaziz Wallis CBC AUTO DIFFon 12-23-2021 BASO # 0.1 103/ul Normal 0.0-0.1 [facility] Comment on above: Performed By: #### C BC #### [facility] [address] [place] [address] Dr. Abdulaziz Wallis Basophils/100 WBC (Bld) 1.2 % Normal 0.2-2.0 [facility] Comment on above: Performed By: #### C BC #### [facility] [address] [place] [address] Dr. Abdulaziz Wallis EO # 0.2 103/ul Normal 0.0-0.7 [facility] Comment on above: Performed By: #### C BC #### [facility] [address] [place] [address] Dr. Abdulaziz Wallis Eosinophils/100 WBC (Bld) 3.4 % Normal 0.9-7.0 [facility] Comment on above: Performed By: #### C BC #### [facility] [address] [place] [address] Dr. Abdulaziz Wallis Erythrocyte distribution width (RBC) [Ratio] 13.2 % Normal 11.0-15.0 [facility] Comment on above: Performed By: #### C BC #### [facility] [address] [place] [address] Dr. Abdulaziz Wallis Hematocrit (Bld) [Volume fraction] 41.3 % Critically low 42.0-54.0 [facility] Comment on above: Performed By: #### C BC #### [facility] [address] [place] [address] Dr. Abdulaziz Wallis Hemoglobin (Bld) [Mass/Vol] 13.9 g/dL Critically low 14.0-18.0 [facility] Comment on above: Performed By: #### C BC #### [facility] [address] [place] [address] Dr. Abdulaziz Wallis IG # 0.02 10e3/ul Normal 0.00-0.03 [facility] Comment on above: Performed By: #### C BC #### [facility] [address] [place] [address] Dr. Abdulaziz Wallis IG % 0.4 % Normal 0.0-0.5 [facility] Comment on above: Performed By: #### C BC #### [facility] [address] [place] [address] Dr. Abdulaziz Wallis LYMPH # 1.3 103/ul Normal 1.2-3.8 [facility] Comment on above: Performed By: #### C BC #### [facility] [address] [place] [address] Dr. Abdulaziz Wallis Lymphocytes/100 WBC (Bld) 23.8 % Normal 20.5-60.0 [facility] Comment on above: Performed By: #### C BC #### [facility] [address] [place] [address] Dr. Abdulaziz Wallis MANUAL DIFF REQ NO Normal [facility] Comment on above: Performed By: #### C BC #### [facility] [address] [place] [address] Dr. Abdulaziz Wallis MCH (RBC) [Entitic mass] 33.3 pg Normal 25.9-34.0 [facility] Comment on above: Performed By: #### C BC #### [facility] [address] [place] [address] Dr. Abdulaziz Wallis MCHC (RBC) [Mass/Vol] 33.7 g/dL Normal 29.9-35.2 [facility] Comment on above: Performed By: #### C BC #### [facility] [address] [place] [address] Dr. Abdulaziz Wallis MCV (RBC) [Entitic vol] 99.0 fL Critically high 80.0-94.0 [facility] Comment on above: Performed By: #### C BC #### [facility] [address] [place] [address] Dr. Abdulaziz Wallis MONO # 0.7 103/ul Normal 0.3-0.8 [facility] Comment on above: Performed By: #### C BC #### [facility] [address] [place] [address] Dr. Abdulaziz Wallis Monocytes/100 WBC (Bld) 12.2 % Critically high 1.7-12.0 [facility] Comment on above: Performed By: #### C BC #### [facility] [address] [place] [address] Dr. Abdulaziz Wallis NEUT # 3.3 103/ul Normal 1.4-6.5 [facility] Comment on above: Performed By: #### C BC #### [facility] [address] [place] [address] Dr. Abdulaziz Wallis Neutrophils/100 WBC (Bld) 59.0 % Normal 43.0-75.0 [facility] Comment on above: Performed By: #### C BC #### [facility] [address] [address] [address] Abdulaziz Wallis Platelet mean volume (Bld) [Entitic vol] 10.8 fL Normal 9.5-13.5 [facility] Comment on above: Performed By: #### C BC #### [facility] [address] [address] [address] Abdulaziz Wallis PLT 154 103/ul Normal 150-450 [facility] Comment on above: Performed By: #### C BC #### [facility] [facility] [address] [address] [address] Abdulaziz Wallis RBC 4.17 106/ul Critically low 4.70-6.10 [facility] Comment on above: Performed By: #### C BC #### [facility] [address] [place] [address] Dr. Abdulaziz Wallis WBC 5.6 103/ul Normal 4.0-11.0 [facility] Comment on above: Performed By: #### C BC #### [facility] [address] [place] [address] Dr. Abdulaziz Wallis LIPID PROFILEon 12-23-2021 CHOL-HDL RATIO NORM SEE BELOW Normal [facility] Comment on above: Result Comment: 3.3 - 4.4 LOW RISK 4.4 - 7.1 AVERAGE RISK 7.1 - 11.0 MODERATE RISK >11.0 HIGH RISK Performed By: #### L IPID, BMP, ALT #### [facility] [address] [place] [address] Dr. Abdulaziz Wallis Cholesterol [Mass/Vol] 117 mg/dL Normal <=200 [facility] Comment on above: Performed By: #### L IPID, BMP, ALT #### [facility] [address] [address] [address] Abdulaziz Wallis Cholesterol in HDL [Mass/Vol] 47 mg/dL Normal 40-60 [facility] Comment on above: Performed By: #### L IPID, BMP, ALT #### [facility] [address] [place], [place] [id number] Dr. Abdulaziz Wallis Cholesterol in LDL [Mass/Vol] 45.0 mg/dL Normal [facility] Comment on above: Performed By: #### L IPID, BMP, ALT #### [facility] [address] [place] [address] Dr. Abdulaziz Wallis Cholesterol.total/Ch olesterol in HDL [Mass ratio] 2.5 {ratio} Normal [facility] Comment on above: Performed By: #### L IPID, BMP, ALT #### [facility] [address] [address] [address] Abdulaziz Wallis HDL NORMAL > or = 60 mg/dl - LOW CARDIOVASCULAR RISK <40 mg/dl - HIGH CARDIOVASCULAR RISK Normal [facility] Comment on above: Performed By: #### L IPID, BMP, ALT #### [facility] [address] [place] [address] Dr. Abdulaziz Wallis LDL CALC NORMAL SEE BELOW Normal [facility] Comment on above: Result Comment: <100 mg/dl OPTIMAL 100 - 129 mg/dl NEAR OR ABOVE OPTIMAL 130 - 159 mg/dl BORDERLINE HIGH 160 - 189 mg/dl HIGH >190 mg/dl VERY HIGH Performed By: #### L IPID BMP, ALT #### [facility] [address] [place] [address] Dr. Abdulaziz Wallis Triglyceride [Mass/Vol] 125 mg/dL Normal <=150 [facility] Comment on above: Performed By: #### L IPID, BMP, ALT #### [facility] [address] [place] [address] Dr. Abdulaziz Wallis VLDL CALC 25.0 mg/dL Normal [facility] Comment on above: Performed By: #### L IPID, BMP, ALT #### [facility] [address] [place] [address] Dr. Abdulaziz Wallis PROF CHEM 8 (BAS METB)on Anion gap [Moles/Vol] 11.7 mmol/L Normal [facility] Comment on above: Performed By: #### L IPID, BMP, ALT #### [facility] [address] [place] [address] Dr. Abdulaziz Wallis Calcium [Mass/Vol] 8.9 mg/dL Normal 8.5-10.1 [facility] Comment on above: Performed By: #### L IPID, BMP, ALT #### [facility] [address] [address] [address] Abdulaziz Wallis Chloride [Moles/Vol] 107 mmol/L Normal 98-107 [facility] Comment on above: Performed By: #### L IPID, BMP, ALT #### [facility] [address] [address] [address] Abdulaziz Wallis CO2 [Moles/Vol] 29.4 mmol/L Normal 22.0-30.0 [facility] Comment on above: Performed By: #### L IPID, BMP, ALT #### [facility] [address] [place] [address] Dr. Abdulaziz Wallis Creatinine [Mass/Vol] 0.91 mg/dL Normal 0.66-1.25 [facility] Comment on above: Performed By: #### L IPID, BMP, ALT #### [facility] [address] [place] [address] Dr. Abdulaziz Wallis EGFR-AF MONEGASQUE >60 Normal >=60 [facility] Comment on above: Performed By: #### L IPID, BMP, ALT #### [facility] [address] [place] [address] Dr. Abdulaziz Wallis EGFR-NON AF MONEGASQUE >60 Normal >=60 [facility] Comment on above: Performed By: #### L IPID, BMP, ALT #### [facility] [address] [place] [address] Dr. Abdulaziz Wallis Glucose [Mass/Vol] 102 mg/dL Normal 74-106 [facility] Comment on above: Performed By: #### L IPID, BMP, ALT #### [facility] [address] [address] [address] Abdulaziz Wallis Potassium [Moles/Vol] 4.1 mmol/L Normal 3.4-5.0 [facility] Comment on above: Performed By: #### L IPID, BMP, ALT #### [facility] [address] [address] [address] Abdulaziz Wallis Sodium [Moles/Vol] 144 mmol/L Normal 137-145 [facility] Comment on above: Performed By: #### L IPID, BMP, ALT #### [facility] [address] [address] [address] Abdulaziz Wallis Urea nitrogen [Mass/Vol] 14.0 mg/dL Normal 7.0-18.0 [facility] Comment on above: Performed By: #### L IPID, BMP, ALT #### [facility] [address] [address] [address] Abdulaziz Wallis Urea nitrogen/Creatinine [Mass ratio] 15.4 mg/mg Normal [facility] Comment on above: Performed By: #### L IPID, BMP, ALT #### [facility] [address] [address] [address] Abdulaziz Wallis [facility] 12-23-2021 ALT [Catalytic activity/Vol] 33 U/L Normal 16-63 [facility] Comment on above: Performed By: #### L IPID, BMP, ALT #### [facility] [address] [address] [address] Abdulaziz Wallis Vital Signs Date Time Vital Sign Value Performing Clinician Facility 12-31-2024 09:26-0400 Diastolic blood pressure 53 mm[Hg] [facility] 12-31-2024 09:26-0400 Heart rate 46 /min [facility] 12-31-2024 09:26-0400 Systolic blood pressure 136 mm[Hg] [facility] 12-31-2024 09:16-0400 Body height 182.88 cm [facility] 12-31-2024 09:160400 Body mass index (BMI) [Ratio] 20.5 kg/m2 [facility] 12-31-2024 09:160400 Body weight 68.54 kg [facility] 12-31-2024 09:160400 Respiratory rate 12 /min [facility] 12-31-2024 09:160400 SaO2% (BldA) [Mass fraction] 97 % [facility] 05-01-2024 09:32-0400 Body height 182.88 cm [facility] 05-01-2024 09:32-0400 Body mass index (BMI) [Ratio] 20.7 kg/m2 [facility] 05-01-2024 09:32-0400 Body weight 69.45 kg [facility] 05-01-2024 09:32-0400 Diastolic blood pressure 85 mm[Hg] [facility] 05-01-2024 09:32-0400 Heart rate 48 /min [facility] 05-01-2024 09:32-0400 Respiratory rate 12 /min [facility] 05-01-2024 09:32-0400 Systolic blood pressure 139 mm[Hg] [facility] 03-30-2024 11:45-0400 Body height 182.88 cm [facility] 03-30-2024 11:45-0400 Body mass index (BMI) [Ratio] 20.7 kg/m2 [facility] 03-30-2024 11:45-0400 Body weight 69.51 kg [facility] 03-30-2024 11:45-0400 Diastolic blood pressure 64 mm[Hg] [facility] 03-30-2024 11:45-0400 Heart rate 53 /min [facility] 03-30-2024 11:45-0400 Respiratory rate 12 /min [facility] 03-30-2024 11:45-0400 Systolic blood pressure 156 mm[Hg] [facility] 12-30-2023 11:07-0400 Body height 182.88 cm [facility] 12-30-2023 11:07-0400 Body mass index (BMI) [Ratio] 21.7 kg/m2 [facility] 12-30-2023 11:07-0400 Body weight 72.8 kg [facility] 12-30-2023 11:07-0400 Diastolic blood pressure 60 mm[Hg] [facility] 12-30-2023 11:07-0400 Heart rate 34 /min [facility] 12-30-2023 11:07-0400 Respiratory rate 12 /min [facility] 12-30-2023 11:07-0400 Systolic blood pressure 126 mm[Hg] [facility] 07-20-2023 10:30-0500 Body height 182.88 cm Grzegorz Ball Other [facility] Other 07-20-2023 10:30-0500 Body mass index (BMI) [Ratio] 21.97 kg/m2 Grzegorz Ball Other [facility] Other 07-20-2023 10:30-0500 Body weight 73.48 kg Grzegorz Ball Other [facility] Other 07-20-2023 10:30-0500 Diastolic blood pressure 70 mm[Hg] Grzegorz Ball Other [facility] Other 07-20-2023 10:30-0500 Respiratory rate 12 /min Grzegorz Ball Other [facility] Other 07-20-2023 10:30-0500 Systolic blood pressure 116 mm[Hg] Grzegorz Ball Other [facility] Other 12-15-2022 11:00-0400 Body height 182.88 cm Grzegorz Ball Other [facility] Other 12-15-2022 11:00-0400 Body mass index (BMI) [Ratio] 22.08 kg/m2 Grzegorz Ball Other [facility] Other 12-15-2022 11:00-0400 Body weight 73.85 kg Grzegorz Ball Other [facility] Other 12-15-2022 11:00-0400 Diastolic blood pressure 55 mm[Hg] Grzegorz Ball Other [facility] Other 12-15-2022 11:00-0400 Respiratory rate 12 /min Grzegorz Bui Other [facility] [employer] Other 12-15-2022 11:00-0400 Systolic blood pressure 160 mm[Hg] Grzegorz Bui Other [facility] [employer] Other Encounters Encounter Date Encounter Type Care Provider Facility Start: 03-26-2025 End: 03-26-2025 ambulatory [facility] Start: 12-31-2024 End: 12-31-2024 ambulatory [facility] Work Phone: Start: 12-31-2024 End: 12-31-2024 Patient encounter procedure [facility] Work Phone: Start: 10-30-2024 End: 10-30-2024 ambulatory [facility] Start: 08-01-2024 End: 08-01-2024 ambulatory [facility] Start: 05-01-2024 End: 05-01-2024 ambulatory [facility] Start: 05-01-2024 End: 05-01-2024 ambulatory [facility] Work Phone: Start: 05-01-2024 End: 05-01-2024 Patient encounter procedure [facility]ician [facility] Work Phone: Start: 04-26-2024 Non-patient / Non-visit [facility] [employer] Work Phone: Start: 04-06-2024 End: 04-06-2024 [facility] Start: 03-30-2024 End: 03-30-2024 ambulatory [facility] Work Phone: Start: 03-30-2024 End: 03-30-2024 Patient encounter procedure [facility] Work Phone: Start: 03-23-2024 Non-patient / Non-visit [facility] Work Phone: Start: 03-16-2024 Non-patient / Non-visit [facility] Work Phone: Start: 12-30-2023 End: 12-30-2023 ambulatory [facility] Work Phone: Start: 12-30-2023 End: 12-30-2023 Patient encounter procedure [facility] Work Phone: Start: 07-20-2023 End: 07-20-2023 ambulatory Grzegorz Bui Other [facility] Other Start: 07-20-2023 Office outpatient vi sit 25 minutes Grzegorz Bui [facility] Start: 05-23-2023 End: 05-23-2023 ambulatory Grzegorz Bui Other [facility] Other Start: 05-23-2023 Nursing evaluation o f patient and report Grzegorz Bui [facility] Start: 04-04-2023 End: 04-04-2023 ambulatory Grzegorz Bui Other [facility] Other Start: 04-04-2023 Telephone encounter Grzegorz Bui [facility] Start: 12-22-2022 End: 12-22-2022 ambulatory Grzegorz Bui Other [facility] Other Start: 12-22-2022 Telephone encounter Grzegorz Bui [facility] Start: 12-19-2022 End: 12-19-2022 ambulatory Grzegorz Bui Other [facility] Other Start: 12-19-2022 Telephone encounter Grzegorz WILCOX [facility] Start: 12-17-2022 End: [address] GRZEGORZ BUI Facility: Start: 12-15-2022 End: 12-15-2022 ambulatory Grzegorz Bui Other [facility] Other Start: 12-15-2022 Patient encounter procedure Grzegorz KITCHEN [facility] Start: 06-30-2022 End: 07-01-[address] GRZEGORZ BUI Facility:[facility] Start: 05-28-2022 End: 05-28-2022 ambulatory JAMA VEGA . Facility:[facility] Start: 03-30-2022 End: 03-31-[address] GRZEGORZ BUI Facility:[facility] Start: 12-23-2021 Adult health examination Grzegorz Hao Other [facility] Other Start: 12-23-2021 End: 12-24-[address] GRZEGORZ BUI Facility:[facility] Procedures Date Procedure Procedure Detail Performing Clinician Start: 12-17-2022 End: 12-17-[address] GRZEGORZ BUI Comment on above: Performed By: #### P SASC ####[facility] [id number] [place], [place] [address]AqDr. Abdulaziz Wallis Start: 12-23-2021 Depression screening Be jonathan Bui Other Start: 12-23-[address] MIGUEL BUI Comment on above: Performed By: #### P SASC #### [facility] [address], [place] [address] Dr. Abdulaziz Wallis Start: 11-21-2015 Screening for malign ant neoplasm of colon Grzegorz Bui Other Start: 10-17-2013 Screening for malign ant neoplasm of prostate Grzegorz Bui Other Screening for malign ant neoplasm of prostate Grzegorz Bui Other Plan of Treatment Date Care Activity Detail Author Comprehensive metabo lic 2000 panel - Serum or Plasma [facility] enter Comprehensive metabo lic 2000 panel - Serum or Plasma [facility] enter [facility] Immunizations Immunization Date Immunization Notes Care Provider Fa cilile 05-23-2023 influenza, high dose seasonal, preservative-free Grzegorz Bui Other [facility] Other 05-23-2023 influenza virus vaccine, unspecified formulation [facility] 06-07-2022 influenza virus vaccine, split virus (incl. purified surface antigen) Grzegorz Bui Other [facility] Other 06-07-2022 influenza virus vaccine, unspecified formulation [facility] 06-07-2022 influenza, high dose seasonal, preservative-free Grzegorz Bui Other [email or web address] [employer] Other 05-14-2022 COVID-19 Pfizer (bivalent) Grzegorz Bui Other [facility] 05-30-2021 COVID-19 Vaccine Pfi zer - Documentation Purposes Only Grzegorz Bui Other [facility] 05-29-2021 influenza virus vaccine, split virus (incl. purified surface antigen) Grzegorz Bui Other [facility] Other 05-29-2021 influenza virus vaccine, unspecified formulation [facility] 10-31-2020 COVID-19 Vaccine Pfi zer - Documentation Purposes Only Grzegorz Bui Other [facility] 10-12-2020 COVID-19 Vaccine Pfi zer - Documentation Purposes Only Grzegorz Bui Other [facility] 05-19-2020 influenza virus vaccine, split virus (incl. purified surface antigen) Grzegorz Bui Other [facility] Other 05-19-2020 influenza virus vaccine, unspecified formulation [facility] 05-18-2018 influenza virus vaccine, split virus (incl. purified surface antigen) Grzegorz Bui Other [facility] Other 05-18-2018 influenza virus vaccine, unspecified formulation [facility] 06-07-2017 influenza virus vaccine, split virus (incl. purified surface antigen) Grzegorz Bui Other [facility] Other 06-07-2017 influenza virus vaccine, unspecified formulation [facility] 05-14-2016 influenza virus vaccine, split virus (incl. purified surface antigen) Grzegorz Bui Other [facility] Other 05-14-2016 influenza virus vaccine, unspecified formulation [facility] 07-09-2015 pneumococcal Conjuga te, unspecified formulation; Translations: [Need for prophylactic vaccination against Streptococcus pneumoniae (pneumococcus)] Grzegorz Bui Other [facility] Other 07-09-2015 pneumococcal conjuga te vaccine, 13 valent Grzegorz Bui Other [facility] 06-10-2015 influenza virus vaccine, split virus (incl. purified surface antigen) Grzegorz Bui Other [facility] Other 06-10-2015 influenza virus vaccine, unspecified formulation [facility] 06-03-2014 tetanus and diphther ia toxoids, adsorbed, preservative free, for adult use (5 Lf of tetanus toxoid and 2 Lf of diphtheria toxoid) Grzegorz Bui Other [facility] 06-06-2013 tetanus and diphther ia toxoids, adsorbed, preservative free, for adult use (5 Lf of tetanus toxoid and 2 Lf of diphtheria toxoid) Grzegorz Bui Other [facility] 11-12-2009 pneumococcal polysaccharide vaccine, 23 valent Grzegorz Bui Other [facility] 11-05-2009 pneumococcal polysaccharide vaccine, 23 valent Grzegorz Bui Other [facility] Payers Date Payer Category Payer Medicare [id number] 1961 Medicare [id number] 2.1 [id number] 1961 Unknown [id number] 1945 Unknown [id number] 2.16.84 [id number] 1945 Unknown [id number] 2.16.84 [id number] 1945 Unknown [id number] 2.16.84 [id number] 1945 Unknown [id number] 2.16.84 [id number] 1945 Unknown [id number] 2.16.84 [id number] 1945 Unknown [id number] 2.16.84 [id number] Social History Date Type Detail Facility Sex Assigned At [facility] Other Start: 1945 Sex Assigned At Male F [facility] Start: 12-31-2024 [facility] Start: 12-31-2024 Sex Male (finding) [facility] Clinical Notes 12-15-2022 to 03-26-2025 Note Date & Type Note Facility 03-26-2025 Note [facility] Electrophysiology Consult Note Reason for visit: Sinus bradycardia 03/26/25 Patient is here today for a 6 month follow up. Patient states he is feeling good. Patient denies chest pain, SOB, MERCADO, leg swelling or leg pain . Patient states he does have occasional palpitation which has been is normal for years. Echocardiogram done in December 2024 reveals normal EF with moderate TR with RVSP of 58 mmHg 10/30/24 Patient here for 3 mo follow up bradycardia, CAD, CHF, and valve disorder. Due for echo in March 2025. He denies chest pain, SOB, palpitations, and lightheadedness/syncope. No recent labs. He is staying active with no issues 04/2724 Patient was recently admitted to the hospital and underwent a stress test for what was believed to be bradycardia. Since the stress was positive he underwent a coronary angiography which revealed stenosis in the mid RCA where PCI was done. He was subsequently discharged. His beta-blockers were held due to bradycardia. Event monitor that was placed from 02/23/2024 to 03/24/2024 revealed no episodes of AV block but.'s of sinus bradycardia which was mainly nocturnal and hands with no symptoms. There were few episodes of PVCs and couplets seen on 2 occasions. no atrial fibrillation was seen. HPI: Jeremiah Viera is a 79 y.o. year old with past medical history [...] ED from when he was referred to [facility]. Previously he was admitted to [facility] and imminently of his bradycardia and his [...] seen. PMH: Past Medical History: Diagnosis Date Abnormal ECG Cardiovascular stress test abnormal 04/20/2022 Coronary artery disease GERD (gastroesophageal reflux disease) 04/20/2022 Heart valve disease Hyperlipidemia 04/20/2022 Hypertension Sinus bradycardia 04/20/2022 PSH: Past Surgical History: Procedure Laterality Date CARDIAC CATHETERIZATION CORONARY ANGIOPLASTY CORONARY ARTERY BYPASS GRAFT 09/05/2001 CORONARY STENT PLACEMENT SH: Social Drivers of Health Tobacco Use: Low Risk (03/26/2025) Patient History Smoking Tobacco Use: Never Smokeless [...] Year: No Utilities: Not At Risk (03/16/2024) [facility] Utilities Threatened with loss of utilities: No Health Literacy: Not on file Allergies: No Known Allergies Weight: @WEIGHT@ Visit Vitals BP 122/62 (BP Location: Right arm) Pulse (!) 40 Ht 1.803 m (5' 11 ) Wt 68 kg (150 lb) SpO2 98% BMI 20.92 kg/m??? Smoking Status Never BSA 1.85 m??? Meds: Current Outpatient Medications on File Prior to Visit Medication Sig Dispense Refill ALPRAZolam (Niravam) 0.25 mg disintegrating tablet Take 0.25 mg by mouth if needed at bedtime for anxiety. aspirin 81 mg chewable tablet Chew 1 tablet every day by oral route. atorvastatin (Lipitor) 40 mg tablet Take 1 tablet (40 mg) by mouth at bedtime. 30 tablet 2 clopidogrel (Plavix) 75 mg tablet Take 1 tablet (75 mg) by mouth in the morning. 90 tablet 3 furosemide (Lasix) 20 mg tablet TAKE 1 TABLET BY MOUTH EVERY DAY IN THE MORNING 90 tablet 3 lisinopril 40 mg tablet (more content not included)... [facility] 10-30-2024 Note [facility] Electrophysiology Consult Note Reason for visit: Sinus bradycardia 10/30/24 Patient here for 3 mo follow up bradycardia, CAD, CHF, and valve disorder. Due for echo in March 2025. He denies chest pain, SOB, palpitations, and lightheadedness/syncope. No recent labs. He is staying active with no issues 04/2724 Patient was recently admitted to the hospital and underwent a stress test for what was believed to be bradycardia. Since the stress was positive he underwent a coronary angiography which revealed stenosis in the mid RCA where PCI was done. He was subsequently discharged. His beta-blockers were held due to bradycardia. Event monitor that was placed from 02/23/2024 to 03/24/2024 revealed no episodes of AV block but.'s of sinus bradycardia which was mainly nocturnal and hands with no symptoms. There were few episodes of PVCs and couplets seen on 2 occasions. no atrial fibrillation was seen. HPI: Jeremiah Viera is a 78 y.o. [...] ED from when he was referred to [facility]. Previously he was admitted to [facility] and imminently of his bradycardia and his [...] seen. PMH: Past Medical History: Diagnosis Date Abnormal ECG Cardiovascular stress test abnormal 04/20/2022 Coronary artery disease GERD (gastroesophageal reflux disease) 04/20/2022 Heart valve disease Hyperlipidemia 04/20/2022 Hypertension Sinus bradycardia 04/20/2022 PSH: Past Surgical History: Procedure Laterality Date CARDIAC CATHETERIZATION CORONARY ANGIOPLASTY CORONARY ARTERY BYPASS GRAFT 09/05/2001 CORONARY STENT PLACEMENT SH: Social Determinants of Health Tobacco Use: [...] Year: No Utilities: Not At Risk (03/16/2024) [facility] Utilities Threatened with loss of utilities: No Health Literacy: Not on file Allergies: No Known Allergies Weight: @WEIGHT@ Visit Vitals BP 144/60 (BP Location: Left arm, Patient Position: Sitting) Pulse (!) 47 Ht 1.803 m (5' 11 ) Wt 68.9 kg (152 lb) SpO2 97% BMI 21.20 kg/m??? Smoking Status Never BSA 1.86 m??? Meds: Current Outpatient Medications on File Prior to Visit Medication Sig Dispense Refill ALPRAZolam (Niravam) 0.25 mg disintegrating tablet Take 0.25 mg by mouth if needed at bedtime for anxiety. aspirin 81 mg chewable tablet Chew 1 tablet every day by oral route. atorvastatin (Lipitor) 40 mg tablet Take 1 tablet (40 mg) by mouth at bedtime. 30 tablet 2 clopidogrel (Plavix) 75 mg tablet Take 1 tablet (75 mg) by mouth in the morning. Do not start before March 22, 2024. 90 tablet 3 furosemide (Lasix) 20 mg tablet TAKE 1 TABLET BY MOUTH EVERY DAY IN THE MORNING 90 tablet 3 lisinopril 40 mg tablet Take 1 tablet (40 mg) by mouth in the morning. 90 tablet 3 NIFEdipine XL (Procardia XL) 90 mg 24 hr tablet Take 1 tablet (90 mg) by mouth in the morning. 90 tablet 3 nitroglycerin (Nitrostat) 0.[address] 0.4 mg under the tongue every 5 (five) minutes if (more content not included)... [facility] 08-01-2024 Note Cardiovascular Medic ine [facility] SUBJECTIVE Chief Complaint Patient presents with Bradycardia Coronary Artery Disease Valve Disorder Jeremiah Viera is a 78 y.o. male here for follow-up. Coronary Artery Disease Pertinent negatives include no chest pain, leg swelling, palpitations or weight gain. PMHx: CAD s/p CABG, hypertension, hyperlipidemia, MVR and AVR, bradycardia He has been feeling well since last seen. He is able to do his normal activities without any issues. Denies c/o CP, dyspnea, orthopnea, PND, LE edema, dizziness/LH, palpitations, syncope. BP at home runs 120-140s/60s. Patient Active Problem List Diagnosis Cardiovascular stress test abnormal CAD (coronary artery disease) Benign hypertensive cardiomyopathy with heart failure (CMS/HCC) GERD (gastroesophageal reflux disease) Hyperlipidemia Sinus bradycardia Coronary arteriosclerosis Gastroesophageal reflux disease Mitral and aortic valve regurgitation Bradycardia ALEXANDREA (generalized anxiety disorder) Lumbar spondylosis NSVT (nonsustained ventricular tachycardia) (CMS/HCC) Chronic diastolic CHF (congestive heart failure) (CMS/HCC) Anemia Primary hypertension Past Medical History: Diagnosis Date Abnormal ECG Cardiovascular stress test abnormal 04/20/2022 Coronary artery disease GERD (gastroesophageal reflux disease) 04/20/2022 Heart valve disease Hyperlipidemia 04/20/2022 Hypertension Sinus bradycardia 04/20/2022 Family History Problem Relation Name Age of Onset Heart disease Father Heart disease Brother Heart disease Father's Brother Social History Tobacco Use Smoking status: Never Smokeless tobacco: Never Substance Use Topics Alcohol use: Not Currently Drug use: Never No Known Allergies Review of Systems Constitutional: Negative for chills, decreased appetite, fever, malaise/fatigue and weight gain. Cardiovascular: Negative for chest pain, dyspnea on exertion, irregular heartbeat, leg swelling, near-syncope, orthopnea, palpitations, paroxysmal nocturnal dyspnea and syncope. Hematologic/Lymphatic: Negative for bleeding problem. Does not bruise/bleed easily. OBJECTIVE Visit Vitals BP 142/58 (BP Location: Left arm, Patient Position: Sitting) Pulse 67 Ht 1.803 m (5' 11 ) Wt 68.5 kg (151 lb) SpO2 99% BMI 21.06 kg/m??? Smoking Status Never BSA 1.85 m??? Medications: Current Outpatient Medications: ALPRAZolam (Niravam) 0.25 mg disintegrating tablet, Take 0.25 mg by mouth if needed at bedtime for anxiety., Disp: , Rfl: aspirin 81 mg chewable tablet, Chew 1 tablet every day by oral route., Disp: , Rfl: atorvastatin (Lipitor) 40 mg tablet, Take 1 tablet (40 mg) by mouth at bedtime., Disp: 30 tablet, Rfl: 2 clopidogrel (Plavix) 75 mg tablet, Take 1 tablet (75 mg) by mouth in the morning. Do not start before March 22, 2024., Disp: 90 tablet, Rfl: 3 furosemide (Lasix) 20 mg tablet, TAKE 1 TABLET BY MOUTH EVERY DAY IN THE MORNING, Disp: 90 tablet, Rfl: 3 lisinopril 40 mg tablet, Take 1 tablet (40 mg) by mouth in the morning., Disp: 90 tablet, Rfl: 3 NIFEdipine XL (Procardia XL) 90 mg 24 hr tablet, Take 1 tablet (90 mg) by mouth in the morning., Disp: 90 tablet, Rfl: 3 nitroglycerin (Nitrostat) 0.4 mg SL tablet, Place 0.4 mg under the tongue every 5 (five) minutes if needed., Disp: , Rfl: Physical Exam Constitutional: Appearance: Normal appearance. He is normal weight. HENT: Head: Normocephalic and atraumatic. Right Ear: External ear normal. Left Ear: External ear normal. Eyes: Extraocular Movements: Extraocular movements intact. Pupils: Pupils are equal, round, and reactive to light. Neck: Vascular: No carotid bruit. Cardiovascular: Rate and Rhythm: Regular rhythm. Bradycardia present. Pulses: Normal pulses. Heart sounds: Normal heart sounds. Pulmonary: Effort: Pulmonary effort is normal. Breath sounds: Normal breath sounds. Abdominal: General: Bowel sounds are normal. Palpations: Abdomen is soft. Musculoskeletal: General: Normal range of motion. Cervical back: Neck supple. Right lower leg: No edema. Left lower leg: No edema. Skin: General: Skin is warm and dry. Neurological: General: No focal deficit present. Mental Status: He is alert and oriented to person, place, and time. Psychiatric: Mood and Affect: Mood normal. Behavior: Behavior normal. Thought Content: Thought content normal. Judgment: Judgment normal. Labs: Admission on 03/16/2024, Discharged on 03/21/2024 Component Date Value Ref Range Status Sodium 03/16/2024 141 136 - 145 mmol/L Final Potassium 03/16/2024 3.7 3.5 - 5.1 mmol/L Final Chloride 03/16/2024 109 (H) 98 - 107 mmol/L Final CO2 03/16/2024 23 21 - 31 mmol/L Final Anion Gap 03/16/2024 13 7 - 20 mmol/L Final BUN 03/16/2024 20 7 - 25 mg/dL Final Creatinine 03/16/2024 0.92 0.70 - 1.30 mg/dL Final BUN/Creatinine Ratio 03/16/2024 21.7 Final Glucose 03/16/2024 92 7 (more content not included)... [facility] 08-01-2024 Note Patient here for 3 m o follow up sinus bradycardia, CAD s/p CABG, and hypertension. Denies chest pain, SOB, palpitations, and lightheadedness/syncope. Review of Systems All other systems reviewed and are negative. [facility] 05-01-2024 Note [place] Electrophysiology Consult Note Reason for visit: Sinus bradycardia 04/2724 Patient was recently admitted to the hospital and underwent a stress test for what was believed to be bradycardia. Since the stress was positive he underwent a coronary angiography which revealed stenosis in the mid RCA where PCI was done. He was subsequently discharged. His beta-blockers were held due to bradycardia. Event monitor that was placed from 02/23/2024 to 03/24/2024 revealed no episodes of AV block but.'s of sinus bradycardia which was mainly nocturnal and hands with no symptoms. There were few episodes of PVCs and couplets seen on 2 occasions. no atrial fibrillation was seen. HPI: Jeremiah Viera is a 78 y.o. [...] ED from when he was referred to [facility]. Previously he was admitted to [facility] and imminently of his bradycardia and his [...] seen. PMH: Past Medical History: Diagnosis Date Abnormal ECG Cardiovascular stress test abnormal 04/20/2022 Coronary artery disease GERD (gastroesophageal reflux disease) 04/20/2022 Heart valve disease Hyperlipidemia 04/20/2022 Hypertension Sinus bradycardia 04/20/2022 PSH: Past Surgical History: Procedure Laterality Date CARDIAC CATHETERIZATION CORONARY ARTERY BYPASS GRAFT 09/05/2001 CORONARY STENT PLACEMENT SH: Social Determinants of Health Tobacco Use: Low Risk (04/06/2024) Patient History Smoking Tobacco Use: Never Smokeless [...] Year: No Utilities: Not At Risk (03/16/2024) [facility] Utilities Threatened with loss of utilities: No Allergies: No Known Allergies Weight: @WEIGHT@ Visit Vitals BP 138/53 (BP Location: Left arm, Patient Position: Sitting) Pulse (!) 41 Ht 1.803 m (5' 11 ) Wt 68.9 kg (152 lb) SpO2 98% BMI 21.20 kg/m??? Smoking Status Never BSA 1.86 m??? Meds: Current Outpatient Medications on File Prior to Visit Medication Sig Dispense Refill ALPRAZolam (Niravam) 0.25 mg disintegrating tablet Take 0.25 mg by mouth if needed at bedtime for anxiety. aspirin 81 mg chewable tablet Chew 1 [...] 90 tablet 3 NIFEdipine XL (Procardia XL) 90 mg 24 hr tablet Take 1 tablet (90 mg) by mouth in the morning. 90 tablet 3 nitroglycerin (Nitrostat) 0.[address] 0.4 mg under the tongue every 5 (five) minutes if needed. No current facility-administered medications on file prior to visit. ROS: Cardio Basic Cardiovascular Symptoms: no lightheadedness, no leg edema, no syncope, no orthopnea, no PND, no claudication, Constitutional Constitutional: no fever, no night sweats, no significant roz (more content not included)... [facility] 04-06-2024 Note No NSVT noted on 30 day event monitor No beta rosibel r/t bradycardia [facility] 04-06-2024 Note Stable without concerning sympto ms [facility] 04-06-2024 Note Heart failure is unc hanged. NYHA Class II. Currently remains euvolemic without exacerbation. Continue lasix 20 mg daily. Continue current treatment regimen. Encouraged daily monitoring of the patient's weight. Continue current medications. As scheduled [facility] 04-06-2024 Note EKG today sinus zain y HR 51 bpm, remains asymptomatic Event monitor reviewed with pt and as per Dr Sommers's recommendations - no PPM at this time unless he becomes symptomatic [facility] 04-06-2024 Note [facility] CARDIOLOGY PROGR ESS NOTE [...] with event monitor in place presents to [facility] as a direct admission from [facility] with bradycardia. Patient reports that he [...] nausea, vomiting, dizziness, lightheadedness. Upon arrival to [facility], labs were completed showing WBC 7.9, RBC 4.12, hemoglobin 13.5, hematocrit 39.7, INR 0.99, sodium 142, potassium 3.9, chloride 106, BUN 22, creatinine 1.19, calcium 9.1. CXR was completed showing no acute process. Patient was transferred to [facility] for possible pacemaker implantation. # Asymptomatic bradycardia [...] CBC normal, lipi (more content not included)... [facility] 04-06-2024 Note Coronary artery dise ase is stable s/p recent cardiac cath and PCI to RCA Continue GDMT- ASA, plavix- DAPT for at least 1 year and then may stop plavix. Continue lipitor, lisinopril, no beta rosibel r/t bradycardia continue risk factor modifications- heart healthy diet, regular exercise as tolerated and continue all medications. [facility] 04-06-2024 Note HTN is uncontrolled- 150/72 and pt admits its about that at home Continue lisinopril and increase nifedipine to 90 mg daily Monitor b/p at home and goal b/p is < 130/80 Renal function normal [facility] 07-20-2023 Evaluation note Encounter Date Diagnosis Assessment [...] They may safely use Tylenol as needed. [facility] Other 07-31-2023 Evaluation note* Encounter Date Diagnosis Assessment Notes Treatment Notes Treatment Clinical Notes Mar, ALEXANDREA (generalized anxiety disorder) (ICD-10 - F41.1) [facility] Other 04-16-2023 Evaluation note* Encounter Date Diagnosis Assessment Notes Treatment Notes Treatment Clinical Notes Dec, Nonrheumatic mitral valve regurgitation (ICD-10 - I34.0) ECHOCARDIOGRAM - 12/2022 1 LVEF is 50 to 55%. 2. Dilated right ventricle, reduced systolic function, increase RV pressure 3. Grade 2 diastolic dysfunction. 4. Severe biatrial dilatation. 5. Moderate tricuspid regurgitation. [facility] Other 04-12-2023 Evaluation note* Encounter Date Diagnosis [...] by [ ], under direct supervision of Dr. [ ]. Document reviewed and amended by [...] PSA (prostate specific antigen) (ICD-10 - Z12.5) [facility] Other Evaluation noteNo InformationNortConemaugh [facility] Other Evaluation note* Diagnosis Onset Date Resolution Status ASHD (arteriosclerotic heart disease) acute Elevated cholesterol acute ALEXANDREA (generalized anxiety disorder) acute Lumbar spondylosis acute NSVT (nonsustained ventricular tachycardia) acute Primary hypertension acute Medicare annual wellness visit, subsequent noneactive [facility] Work Phone: Evaluation note* Diagnosis Onset Date Resolution Status ASHD (arteriosclerotic heart disease) acute Elevated cholesterol acute NSVT (nonsustained ventricular tachycardia) acute Primary hypertension acute Sinus bradycardia acute [facility] Work Phone: Evaluation note* Diagnosis Onset Date Resolution Status ASHD (arteriosclerotic heart disease) acute Elevated cholesterol acute NSVT (nonsustained ventricular tachycardia) acute Primary hypertension acute Sinus bradycardia acute ASHD (arteriosclerotic heart disease) acute Elevated cholesterol acute NSVT (nonsustained ventricular tachycardia) acute Primary hypertension acute Sinus bradycardia acute [facility] Work Phone: Evaluation note* Diagnosis Onset Date Resolution Status Admit Date Anemia acute December 31 9:15am ASHD (arteriosclerotic heart disease) acute December 31, 2024 9:15am Chronic kidney disease acute Ap ril 2024 9:15am Elevated cholesterol acute Apri l 2024 9:15am ALEXANDREA (generalized anxiety disorder) acute December 31, 2024 9:15am Hypertensive chronic kidney disease acute December 31, 2024 9:15am Lumbar spondylosis acute December 31, 2024 9:15am NSVT (nonsustained ventricul ar tachycardia) acute December 31, 2024 9:15am Primary hypertension acute Apri l 2024 9:15am Screening PSA (prostate specific antigen) acute December 31 9:15am Sinus bradycardia acute December 052024 9:15am Medicare annual wellness visit, subsequent noneactive December 31 9:15am [facility] Work Phone: History general Narrative - Reported* [...] COLONOSCOPY 2011 Hospitalization History SEE SURGICAL HX [facility] Other Summary Purpose Family History No Family [...] (nonsustained ventricular tachycardia) Primary hypertension Sinus bradycardia Chief Complaint Amb Documentation Hospital follow up 4 MONTH FOLLOW UP Reason for Visit ASHD (arteriosclerot ic heart disease) Elevated cholesterol NSVT (nonsustained ventricular tachycardia) Primary hypertension Sinus bradycardia ASHD (arteriosclerotic heart disease) Elevated cholesterol NSVT (nonsustained ventricular tachycardia) Primary hypertension Sinus bradycardia Chief Complaint Admit Date Wellness-HIGH RISK December 31, 2024 9:1 5am Reason for Visit Admit Date Anemia December 31, 2024 9:1 5am ASHD (arteriosclerotic heart disease) Ap ril 2024 9:15am Chronic kidney disease December 31, 2024 9:15am Elevated cholesterol December 31, 2024 9: 15am ALEXANDREA (generalized anxiety disorder) December 31, 2024 9:15am Hypertensive chronic kidney disease Apri l 2024 9:15am Lumbar spondylosis December 31, 2024 9:1 5am NSVT (nonsustained ventricular tachycard ia) December 31, 2024 9:15am Primary hypertension December 31, 2024 9: 15am Screening PSA (prostate specific antigen ) December 31, 2024 9:15am Sinus bradycardia December 31, 2024 9:1 5am Medicare annual wellness visit, subseque nt December 31, 2024 9:15am Additional Source Comments REASON FOR VISIT (unrecogniz ed section and content) WellnessNo InformationWellne ssBP readingsRefillWellnessflu shot3 month Follow up (unrecognized sect ion and content) No Status Records FoundNo Status Records Found INFORMATION SOURCE (unrecogn ized section and content) DATE CREATED 2022 [facility] DATE CREATED AUTHOR AUTHOR'S ORGANIZ ATION 03/27/2025 [facility] Teams (unrecognized sec tion and content) Team Status: Active Member Role Status Dates Grzegorz Bui DO Primary Care Provider Active Team Status: Inactive Member Role Status Dates Grzegorz Bui DO Primary Care Provide r, Attending Provider Active Start: December 31, 2024 End: December 31, 2024 Team Status: Active Member Role Status Dates Grzegorz Bui DO Primary Care Provide r, Attending Provider Active Start: March 16, 2024 Team Status: Active Member Role Status Dates Grzegorz Bui DO Primary Care Provider Active Start: March 23, [...] December 30, 2023 End: December 30, 2023 Team Status: Active Member Role Status Dates Grzegorz Bui , DO Primary Care Provide r, Attending Provider Active Start: April 26, 2024 Team Status: Inactive Member Role Status Dates Grzegorz Bui , DO Primary Care Provide r, Attending Provider Active Start: May 01, 2024 End: May 01, 2024 Goals (unrecognized section and content) Goals may [...] BE BASED ON THE PRIMARY CLINICAL RECORDS. [employer] provides no warranty or guarantee of the accuracy or completeness of information in this document.
[2025-04-18 09:04] LABS: Hematocrit 39.6 % (42.0-54.0); Hemoglobin 13.3 g/dL (14.0-18.0); Immature Granulocytes Abs Auto 0.03 10^3/uL (0.00-0.03); Immature Granulocytes Pct Auto 0.5 % (0.0-0.5); Lymphocytes Absolute Auto 1.2 10^3/uL (1.2-3.8); Mean Corpuscular HGB Conc 33.6 g/dL (29.9-35.2); Mean Corpuscular Hemoglobin 32.0 pg (25.9-34.0); Mean Corpuscular Volume 95.2 fL (80.0-94.0); Platelet Count 149 10^3/uL (150-450); Red Blood Count 4.16 10^6/uL (4.70-6.10); White Blood Count 5.6 10^3/uL (4.0-11.0)
[2025-04-18 09:22] LABS: Anion Gap 14.3; Blood Urea Nitrogen 26.0 mg/dL (7.0-18.0); Calcium 9.4 mg/dL (8.5-10.1); Carbon Dioxide 26.0 mmol/L (21.0-32.0); Chloride 107 mmol/L (98-107); Estimated GFR (African America >60 (>=60 mL/min/1.73m^2); Estimated GFR (Non-African Ame >60 (>=60 mL/min/1.73m^2); Glucose 91 mg/dL (74-106); Potassium 4.3 mmol/L (3.5-5.1); Sodium 143 mmol/L (136-145)
[2025-04-18 10:09] LABS: Iron 92.0 ug/dL (65.0-175.0); Percent Iron Saturation 37.9 %; Total Iron Binding Capacity 243.0 ug/dL (250.0-450.0)
[2025-04-18 10:28] LABS: Ferritin 222.0 ng/mL (26.0-388.0); Folate 36.80 ng/mL (8.60-58.90)
[2025-04-19 04:07] LABS: Vitamin B12 1027 pg/mL (232-1245)
== END 2025-04-18 08:21 | disposition home or self-care (01) ==
LOC: LAB 08:22
PROVIDERS: PCP Internal Medicine; Visit Provider Internal Medicine
DX: D64.89 Other specified anemias (principal); N18.31 Chronic kidney disease, stage 3a
CPT/HCPCS: 36415; 80048; 82607; 82728; 82746; 83540; 83550; 85025